=== PATIENT | female | born 1980 | race Caucasian/White ===

== ENCOUNTER 2016-12-31 12:24 | Inpatient (IN) | payer OTHER ==
[2016-12-31 13:03] VITALS: BMI 24.2
--- NOTE | 2016-12-31 16:38 | HP ---
CIWA Score - CIWA Score Nausea/Vomitin-Mild Nausea/No Vomiting Muscle Tremors: 4-Moderate,w/Arms Extend Anxiety: 4-Mod. Anxious/Guarded Agitation: 4-Moderately Restless Paroxysmal Sweats: 1-Minimal Palms Moist Orientation: 0-Oriented Tacttile Disturbances: 0-None Auditory Disturbances: 0-None Visual Disturbances: 0-None Headache: 0-None Present CIWA-Ar Total Score: 14 Admission ROS BHS - HPI Chief Complaint: withdrawal sx Allergies/Adverse Reactions: Allergies Allergy/AdvReac Type Severity Reaction Status Date / Time latex Allergy Hives Verified 12/31/16 13:34 lactose AdvReac Severe diarrhea Verified 12/31/16 13:09 NKDA Allergy Uncoded 12/31/16 13:09 History of Present Illness: 36 years old female with long history of alcohol nicotine dependence has hypertension and depression is admitted to detox Exam Limitations: No Limitations - Ebola screening Have you traveled outside of the country in the last 21 days: No Have you had contact with anyone from an Ebola affected area: No Have you been sick,other than usual withdrawal symptoms: No Do you have a fever: No - Review of Systems Constitutional: Chills, Changes in sleep, Weight Stable EENT: reports: No Symptoms Reported Respiratory: reports: No Symptoms reported Cardiac: reports: No Symptoms Reported GI: reports: Nausea, Poor Fluid Intake, Indigestion, Abdominal cramping : reports: No Symptoms Reported Musculoskeletal: reports: No Symptoms Reported Integumentary: reports: No Symptoms Reported Neuro: reports: Tremors Endocrine: reports: No Symptoms Reported Hematology: reports: No Symptoms Reported Psychiatric: reports: Judgement Intact, Orientated x3, Depressed Other Systems: Reviewed and Negative Patient History - Patient Medical History Hx Anemia: Yes (HX/O) Hx Asthma: No Hx Chronic Obstructive Pulmonary Disease (COPD): No Hx Cancer: No Hx Cardiac Disorders: Yes (atrial fibrilation by history) Hx Congestive Heart Failure: No Hx Hypertension: Yes Hx Hypercholesterolemia: No Hx Pacemaker: No HX Cerebrovascular Accident: No Hx Seizures: No Hx Dementia: No Hx Diabetes: No Hx Gastrointestinal Disorders: Yes (gastric ulcer) Hx Liver Disease: No Hx Genitourinary Disorders: No Hx Sexually Transmitted Disorders: No Hx Renal Disease (ESRD): No Hx Thyroid Disease: Yes (HYPO) Hx Human Immunodeficiency Virus (HIV): No Hx Hepatitis C: No Hx Depression: Yes Hx Suicide Attempt: No Hx Bipolar Disorder: No Hx Schizophrenia: No - Patient Surgical History Past Surgical History: Yes Hx Neurologic Surgery: No Hx Cataract Extraction: No Hx Cardiac Surgery: No Hx Lung Surgery: No Hx Breast Surgery: No Hx Breast Biopsy: No Hx Abdominal Surgery: Yes (gastric bypass in 07/2014) Hx Appendectomy: No Hx Cholecystectomy: No Hx Genitourinary Surgery: No Hx Section: Yes (x2) Hx Orthopedic Surgery: No Anesthesia Reaction: No - PPD History Previous Implant?: Yes Documented Results: Negative w/proof Implanted On Prior R Admission?: Yes Date: 01/11/16 Results: 0 mm PPD to be Administered?: No - Reproductive History Patient is a Female of Child Bearing Age (11 -55 yrs old): Yes Last Menstrual Period: 12/24/16 Patient : No - Smoking Cessation Smoking history: Current every day smoker Have you smoked in the past 12 months: Yes Aproximately how many cigarettes per day: 3 Cigars Per Day: 0 Hx Chewing Tobacco Use: No Initiated information on smoking cessation: Yes 'Breaking Loose' booklet given: 12/31/16 - Substance & Tx. History Hx Alcohol Use: Yes Hx Substance Use: No Substance Use Type: Alcohol Hx Substance Use Treatment: Yes (01/08-01/13/16 [facility]) - Substances Abused Alcohol-beer Route: Oral Frequency: Daily Amount used: 2-3 6 pks. Age of first use: 9 Date of Last Use: 12/31/16 Ativan Route: Oral Frequency: 1-2 times per week Amount used: 1.5 mg. Age of first use: 36 Date of Last Use: 12/30/16 Family Disease History - Family Disease History Family Disease History: Diabetes: Father (HTN, DM), Mother (DM, ASTHMA, METAL ILLNESS), Heart Disease: Father, Mother, Respiratory: Mother, Other: Mother, Brother (MENTAL ILLNESS) Admission Physical Exam BHS - Vital Signs Vital Signs: Vital Signs - 24 hr 12/31/16 13:00 Temperature 97.6 F Pulse Rate 70 Respiratory 18 Rate Blood Pressure 159/103 - Physical General Appearance: Yes: Appropriately Dressed, Mild Distress, Alcohol on Breath , Obese, Tremorous, Irritable, Sweating, Anxious HEENTM: Yes: Hearing grossly Normal, Normal ENT Inspection, Normocephalic, Normal Voice Respiratory: Yes: Chest Non-Tender, Lungs Clear, Normal Breath Sounds, No Respiratory Distress, No Accessory Muscle Use Neck: Yes: Supple, Trachea in good position Breast: Yes: Breasts Symetrical Cardiology: Yes: Regular Rhythm, Regular Rate, S1, S2, Other (cardiac conversion naturally) Abdominal: Yes: Non Tender, Soft Genitourinary: Yes: Within Normal Limits Back: Yes: Normal Inspection Musculoskeletal: Yes: full range of Motion, Gait Steady Extremities: Yes: Normal Inspection, Normal Range of Motion, Non-Tender, Tremors Neurological: Yes: Fully Oriented, Alert, Motor Strength 5/5, Normal Response, Depressed Affect Integumentary: Yes: Normal Color, Warm Lymphatic: Yes: Within Normal Limits - Diagnostic (1) Alcohol dependence with uncomplicated withdrawal Current Visit: Yes Status: Acute (2) Depressive disorder Current Visit: Yes Status: Suspected (3) HTN (hypertension) Current Visit: Yes Status: Chronic Qualifiers: Hypertension type: essential hypertension Qualified Code(s): I10 - Essential (primary) hypertension (4) Nicotine dependence Current Visit: Yes Status: Acute Qualifiers: Nicotine product type: cigarettes Substance use status: in withdrawal Qualified Code(s): F17.213 - Nicotine dependence, cigarettes, with withdrawal Cleared for Admission [facility] - Detox or Rehab [facility] Level of Care: Medically Managed Detox Regimen/Protocol: Librium [facility] Breath Alcohol Content Breath Alcohol Content: 0 Vital Signs - Weight Weight: 185 lb Weight Measurement Method: Standing Scale Urine Pregancy Test - Result Urine Test Results: Negative- NO Line Present Urine Drug Screen - Results Drug Screen Negative: No Urine Drug Screen Results: BZO-Benzodiazepines
[2016-12-31] MEDS ORDERED: NICOTINE POLACRILEX 2 MG GUM BC PRN (16:50)
[2016-12-31] MEDS ORDERED: hydrOXYzine PAMOATE 50 MG CAPSULE (FP) PO PRN (16:50)
[2016-12-31] MEDS ORDERED: guaiFENesin/D-METHORPHAN HB 10 ML UNIT-DOSE CUPS PO PRN (16:50)
[2016-12-31] MEDS ORDERED: MENTHOL/PHENOL 1 EACH UD MM PRN (16:50)
[2016-12-31] MEDS ORDERED: diphenhydrAMINE HCL 50 MG CAPSULE PO PRN (16:50)
[2016-12-31] MEDS ORDERED: chlordiazePOXIDE HCL 25 MG CAPSULE PO PRN (16:50)
[2016-12-31] MEDS ORDERED: MAG HYDROX/AL HYDROX/SIMETH 30 ML UNIT-DOSE CUP PO PRN (16:50)
[2016-12-31] MEDS ORDERED: ACETAMINOPHEN 325 MG TABLET (FP) PO PRN (16:50)
[2016-12-31] MEDS ORDERED: LOPERAMIDE HCL 2 MG CAPSULE PO PRN (16:50)
[2016-12-31] MEDS ORDERED: P-EPHED 60MG/TRIPROLIDI 2.5MG TABLET PO PRN (16:50)
[2016-12-31] MEDS ORDERED: MAGNESIUM HYDROX 2400MG/30ML ORAL SUSPENSION 30 ML CUP PO PRN (16:50)
[2016-12-31] MEDS ORDERED: MAGNESIUM CITRATE 300 ML BOTTLE PO PRN (16:50)
[2016-12-31] MEDS ORDERED: THIAMINE HCL 100 MG TABLET (FP) PO SCH (22:00)
[2016-12-31] MEDS: RANITIDINE HCL 150 MG TABLET (FP) PO SCH (22:06)
[2016-12-31] MEDS: chlordiazePOXIDE HCL 25 MG CAPSULE PO SCH (22:06)
[2016-12-31 23:19] LABS: URINE APPEARANCE SLCLOUDY; URINE BILIRUBIN NEGATIVE (NEGATIVE); URINE COLOR STRAW; URINE GLUCOSE (UA) NEGATIVE (NEGATIVE); URINE KETONE NEGATIVE (NEGATIVE); URINE NITRITE NEGATIVE (NEGATIVE); URINE PROTEIN NEGATIVE (NEGATIVE); URINE UROBILINOGEN NEGATIVE E.U./dl (0.2-1.0)
[2016-12-31 23:22] LABS: URINE BLOOD 2+ (NEGATIVE); URINE LEUK ESTERASE 2+ (NEGATIVE)
[2016-12-31 23:23] LABS: URINE BACTERIA RARE /hpf (NONE SEEN); URINE MUCUS RARE; URINE RBC 5 /hpf (0-3); URINE WBC 12 /hpf (3-5)
[2017-01-01] MEDS: chlordiazePOXIDE HCL 25 MG CAPSULE PO SCH ×3 (05:36→17:28)
[2017-01-01 09:58] LABS: MCH 26.4 pg (25.7-33.7); MEAN CELL VOLUME 85.1 fl (80-96); MEAN PLT VOLUME 8.6 fl (7.5-11.1); PLATELET COUNT 259 K/MM3 (134-434); RDW 16.7 % (11.6-15.6); WHITE BLOOD COUNT 4.2 K/mm3 (4.0-10.0)
[2017-01-01] MEDS ORDERED: PRENATAL VITAMINS W/ FOLIC ACID TABLET (FP) PO SCH (10:00)
[2017-01-01] MEDS ORDERED: LISINOPRIL 10 MG TABLET (FP) PO SCH (10:00)
[2017-01-01] MEDS ORDERED: NICOTINE 14 MG/24 HOURS TOPICAL PATCH TD SCH (10:00)
[2017-01-01 10:08] LABS: ALBUMIN 3.6 g/dl (3.4-5.0); ANION GAP 5 (8-16); CALCIUM 9.2 mg/dL (8.5-10.1); CO2 29 mmol/L (21-32); GLUCOSE,RANDOM 62 mg/dL (74-106); SGOT/AST 21 U/L (15-37); SGPT/ALT 24 U/L (12-78)
[2017-01-01 10:10] LABS: ALK PHOS 95 U/L (45-117); BILIRUBIN,TOTAL 0.5 mg/dL (0.2-1.0); CREATININE 0.8 mg/dL (0.55-1.02); TOT PROT 7.4 g/dl (6.4-8.2)
[2017-01-01] MEDS: RANITIDINE HCL 150 MG TABLET (FP) PO SCH (10:43)
--- NOTE | 2017-01-01 14:01 | CONSULT ---
[facility] Psychiatric Consult - Data Date of interview: 01/01/17 Admission source: [facility] Identifying data: This is the second admission to [facility] for this 36 year female seeking detox treatment on for alcohol dependence.Patient is ,a mother of two(3 year old and 3 month),domiciled, unemployed and supported by her spouse. Substance Abuse History: Patient reports drinking beer daily 2-3 pks daily, smoks cig. 2 a day, ativan 2-3 times a week 1.5 mg Medical History: Patient reports gastric ulcers, gastric bypass surgery in 2014 , HTN. Psychiatric History: Patient reports has been in treatment for depression since last year, attends [facility] and was on Lexapro 10 mg po daily and Trazodone 150 mg po hs, reports due to her drinking she was not taking medications, now thinks she needs to restart. Physical/Sexual Abuse/Trauma History: Denies Mental Status Exam - Mental Status Exam Alert and Oriented to: Time, Place, Person Cognitive Function: Grossly Intact Patient Appearance: Well Groomed Mood: Sad, Anxious Affect: Appropriate, Inappropriate Patient Behavior: Appropriate, Cooperative Speech Pattern: Clear, Appropriate Voice Loudness: Normal Thought Process: Intact Thought Disorder: Not Present Hallucinations: None, Denies Suicidal Ideation: None, Denies Homicidal Ideation: None, Denies Insight/Judgement: Fair Sleep: Fair Appetite: Fair Muscle strength/Tone: Normal Gait/Station: Normal Psychiatric Findings - Problem List ([place] 1, 2,3) (1) Alcohol dependence with uncomplicated withdrawal Current Visit: Yes Status: Acute (2) Nicotine dependence Current Visit: Yes Status: Acute Qualifiers: Nicotine product type: cigarettes Substance use status: in withdrawal Qualified Code(s): F17.213 - Nicotine dependence, cigarettes, with withdrawal (3) HTN (hypertension) Current Visit: Yes Status: Chronic Qualifiers: Hypertension type: essential hypertension Qualified Code(s): I10 - Essential (primary) hypertension (4) MDD (major depressive disorder), recurrent episode, severe Current Visit: Yes Status: Acute - Initial Treatment Plan Initial Treatment Plan: will restart Trazodone 100 mg po hs and Lexapro 10 mg po daily.
--- NOTE | 2017-01-01 16:00 | PN ---
[facility] CIWA - CIWA Score Nausea/Vomitin-Mild Nausea/No Vomiting Muscle Tremors: 3 Anxiety: 4-Mod. Anxious/Guarded Agitation: 4-Moderately Restless Paroxysmal Sweats: 3 Orientation: 0-Oriented Tacttile Disturbances: 0-None Auditory Disturbances: 0-None Visual Disturbances: 0-None Headache: 0-None Present CIWA-Ar Total Score: 15 BHS Progress Note (SOAP) Subjective: Anxiety,tremors,sweating,interrupted sleep,restless Objective: 01/01/17 16:00 Vital Signs - 8 hr 01/01/17 01/01/17 10:00 14:00 Temperature 98.4 F 98.2 F Pulse Rate 86 83 Respiratory 16 18 Rate Blood Pressure 151/89 145/91 Laboratory Last Values WBC 4.2 K/mm3 (4.0-10.0) 01/01/17 06:00 RBC 4.22 M/mm3 (3.60-5.2) 01/01/17 06:00 Hgb 11.1 GM/dL (10.7-15.3) D 01/01/17 06:00 Hct 35.9 % (32.4-45.2) 01/01/17 06:00 MCV 85.1 fl (80-96) 01/01/17 06:00 MCHC 31.0 g/dl (32.0-36.0) L 01/01/17 06:00 RDW 16.7 % (11.6-15.6) H D 01/01/17 06:00 Plt Count 259 K/MM3 (134-434) 01/01/17 06:00 MPV 8.6 fl (7.5-11.1) 01/01/17 06:00 Sodium 141 mmol/L (136-145) 01/01/17 06:00 Potassium 4.1 mmol/L (3.5-5.1) 01/01/17 06:00 Chloride 107 mmol/L (98-107) 01/01/17 06:00 Carbon Dioxide 29 mmol/L (21-32) 01/01/17 06:00 Anion Gap 5 (8-16) L 01/01/17 06:00 BUN 14 mg/dL (7-18) D 01/01/17 06:00 Creatinine 0.8 mg/dL (0.55-1.02) D 01/01/17 06:00 Creat Clearance w eGFR > 60 (>60) 01/01/17 06:00 Random Glucose 62 mg/dL (74-106) L D 01/01/17 06:00 Calcium 9.2 mg/dL (8.5-10.1) 01/01/17 06:00 Total Bilirubin 0.5 mg/dL (0.2-1.0) 01/01/17 06:00 AST 21 U/L (15-37) D 01/01/17 06:00 ALT 24 U/L (12-78) 01/01/17 06:00 Alkaline Phosphatase 95 U/L (45-117) D 01/01/17 06:00 Total Protein 7.4 g/dl (6.4-8.2) 01/01/17 06:00 Albumin 3.6 g/dl (3.4-5.0) 01/01/17 06:00 Urine Color Straw 12/31/16 22:01 Urine Appearance Slcloudy 12/31/16 22:01 Urine pH 5.0 (5.0-8.0) 12/31/16 22:01 Ur Specific [place] <= 1.005 (1.005-1.025) 12/31/16 22:01 Urine Protein Negative (NEGATIVE) 12/31/16 22:01 Urine Glucose (UA) Negative (NEGATIVE) 12/31/16 22:01 Urine Ketones Negative (NEGATIVE) 12/31/16 22:01 Urine Blood 2+ (NEGATIVE) H 12/31/16 22:01 Urine Nitrite Negative (NEGATIVE) 12/31/16 22:01 Urine Bilirubin Negative (NEGATIVE) 12/31/16 22:01 Urine Urobilinogen Negative E.U./dl (0.2-1.0) 12/31/16 22:01 Ur Leukocyte Esterase 2+ (NEGATIVE) H 12/31/16 22:01 Urine RBC 5 /hpf (0-3) 12/31/16 22:01 Urine WBC 12 /hpf (3-5) 12/31/16 22:01 Ur Epithelial Cells Few /hpf (FEW) 12/31/16 22:01 Urine Bacteria Rare /hpf (NONE SEEN) 12/31/16 22:01 Urine Mucus Rare 12/31/16 22:01 RPR Titer Nonreactive (NONREACTIVE) 01/01/17 06:00 labs noted Assessment: 01/01/17 16:00 Withdrawal sx. Plan: Continue detox
[2017-01-01 17:49] VITALS: BP 140/88; PULSE 82; TEMP 97.1
--- NOTE | 2017-01-01 20:17 | DS ---
[facility] Detox Discharge Summary Admission Date: 12/31/16 Discharge Date: 01/01/17 - History Present History: Alcohol Dependence Additional Comments: observed patient ambulating on [address], alert oriented x 3, speech clearly coherent, worry about young son, must leave, recommend utilize community resources, patient insists to leave, reported having anti hypertensants at home , agrees to follow up with accounts payable technician patient denies pain, denies discomfort, denies suicidal denies homocidal no self destructive behavior, - Physical Exam Results Vital Signs: Vital Signs Temperature 97.1 F L 01/01/17 17:49 Pulse Rate 82 01/01/17 17:49 Respiratory Rate 20 01/01/17 17:49 Blood Pressure 140/88 01/01/17 17:49 O2 Sat by Pulse Oximetry (%) Pertinent Admission Physical Exam Findings: withdrawal sx Laboratory Last Values WBC 4.2 K/mm3 (4.0-10.0) 01/01/17 06:00 RBC 4.22 M/mm3 (3.60-5.2) 01/01/17 06:00 Hgb 11.1 GM/dL (10.7-15.3) D 01/01/17 06:00 Hct 35.9 % (32.4-45.2) 01/01/17 06:00 MCV 85.1 fl (80-96) 01/01/17 06:00 MCHC 31.0 g/dl (32.0-36.0) L 01/01/17 06:00 RDW 16.7 % (11.6-15.6) H D 01/01/17 06:00 Plt Count 259 K/MM3 (134-434) 01/01/17 06:00 MPV 8.6 fl (7.5-11.1) 01/01/17 06:00 Sodium 141 mmol/L (136-145) 01/01/17 06:00 Potassium 4.1 mmol/L (3.5-5.1) 01/01/17 06:00 Chloride 107 mmol/L (98-107) 01/01/17 06:00 Carbon Dioxide 29 mmol/L (21-32) 01/01/17 06:00 Anion Gap 5 (8-16) L 01/01/17 06:00 BUN 14 mg/dL (7-18) D 01/01/17 06:00 Creatinine 0.8 mg/dL (0.55-1.02) D 01/01/17 06:00 Creat Clearance w eGFR > 60 (>60) 01/01/17 06:00 Random Glucose 62 mg/dL (74-106) L D 01/01/17 06:00 Calcium 9.2 mg/dL (8.5-10.1) 01/01/17 06:00 Total Bilirubin 0.5 mg/dL (0.2-1.0) 01/01/17 06:00 AST 21 U/L (15-37) D 01/01/17 06:00 ALT 24 U/L (12-78) 01/01/17 06:00 Alkaline Phosphatase 95 U/L (45-117) D 01/01/17 06:00 Total Protein 7.4 g/dl (6.4-8.2) 01/01/17 06:00 Albumin 3.6 g/dl (3.4-5.0) 01/01/17 06:00 Urine Color Straw 12/31/16 22:01 Urine Appearance Slcloudy 12/31/16 22:01 Urine pH 5.0 (5.0-8.0) 12/31/16 22:01 Ur Specific [place] <= 1.005 (1.005-1.025) 12/31/16 22:01 Urine Protein Negative (NEGATIVE) 12/31/16 22:01 Urine Glucose (UA) Negative (NEGATIVE) 12/31/16 22:01 Urine Ketones Negative (NEGATIVE) 12/31/16 22:01 Urine Blood 2+ (NEGATIVE) H 12/31/16 22:01 Urine Nitrite Negative (NEGATIVE) 12/31/16 22:01 Urine Bilirubin Negative (NEGATIVE) 12/31/16 22:01 Urine Urobilinogen Negative E.U./dl (0.2-1.0) 12/31/16 22:01 Ur Leukocyte Esterase 2+ (NEGATIVE) H 12/31/16 22:01 Urine RBC 5 /hpf (0-3) 12/31/16 22:01 Urine WBC 12 /hpf (3-5) 12/31/16 22:01 Ur Epithelial Cells Few /hpf (FEW) 12/31/16 22:01 Urine Bacteria Rare /hpf (NONE SEEN) 12/31/16 22:01 Urine Mucus Rare 12/31/16 22:01 RPR Titer Nonreactive (NONREACTIVE) 01/01/17 06:00 lab noted - Treatment Hospital Course: Detox Protocol Followed, Responded well - Medication Discharge Medications: Ambulatory Orders Trazodone HCl [Desyrel -] 150 mg PO HS 01/09/16 Diltiazem HCl [Diltiazem 24Hr Cd] 240 mg PO DAILY 12/31/16 Lisinopril [Prinivil] 10 - 20 mg PO DAILY 12/31/16 Escitalopram Oxalate [Lexapro -] 10 mg PO DAILY #30 tablet 01/01/17 Trazodone HCl [Desyrel -] 100 mg PO HS #30 tablet 01/01/17 - Diagnosis (1) Alcohol dependence with uncomplicated withdrawal Status: Acute (2) Depressive disorder Status: Suspected (3) HTN (hypertension) Status: Chronic Qualifiers: Hypertension type: essential hypertension Qualified Code(s): I10 - Essential (primary) hypertension (4) Nicotine dependence Status: Acute Qualifiers: Nicotine product type: cigarettes Substance use status: in withdrawal Qualified Code(s): F17.213 - Nicotine dependence, cigarettes, with withdrawal - AMA Did Patient Leave Against Medical Advice: Yes
[2017-01-01] MEDS ORDERED: traZODone HCL 100 MG TABLET (FP) PO SCH (22:00)
[2017-01-01] MEDS ORDERED: chlordiazePOXIDE HCL 25 MG CAPSULE PO SCH (23:00)
[2017-01-02] MEDS ORDERED: ESCITALOPRAM OXALATE 10 MG TABLET (FP) PO SCH (10:00)
[2017-01-02] MEDS ORDERED: chlordiazePOXIDE 5 MG CAPSULE PO SCH (23:00)
--- NOTE | 2017-01-03 22:20 | EKG ---
Test Reason : Blood Pressure : / mmHG Vent. Rate : 091 BPM Atrial Rate : 091 BPM P-R Int : 186 ms QRS Dur : 084 ms QT Int : 364 ms P-R-T Axes : 048 057 019 degrees QTc Int : 447 ms POOR DATA QUALITY, INTERPRETATION MAY BE ADVERSELY AFFECTED NORMAL SINUS RHYTHM NORMAL ECG NO PREVIOUS ECGS AVAILABLE Confirmed by LETA DARLING MD ([id number]) on 01/03/2017 10:20:02 PM Referred By: Confirmed By:LETA DARLING MD
[2017-01-03] MEDS ORDERED: chlordiazePOXIDE HCL 10 MG CAPSULE PO SCH (23:00)
== END 2017-01-01 18:25 | disposition left against medical advice (07) | DRG 770 ==
LOC: YASAS 12:24 → Y6N 13:58
PROVIDERS: ADMIT Internal Medicine; ATTEND Internal Medicine
PROC: HZ2ZZZZ Detoxification Services for Substance Abuse Treatment (ICD-10-PCS; principal; 2017-01-01)
DX: F10.230 Alcohol dependence with withdrawal, uncomplicated (principal); F17.213 Nicotine dependence, cigarettes, with withdrawal; F33.2 Major depressive disorder, recurrent severe without psychotic features; I10 Essential (primary) hypertension; E03.9 Hypothyroidism, unspecified; I48.91 Unspecified atrial fibrillation
CPT/HCPCS: 36415; 80053; 81003; 81015; 85027; 86593; 93005; 93010

== ENCOUNTER 2017-11-16 13:51 | Inpatient (IN) | payer OTHER ==
[2017-11-16 15:12] VITALS: BMI 29.8
--- NOTE | 2017-11-16 15:26 | HP ---
CIWA Score - CIWA Score Nausea/Vomitin Muscle Tremors: 3 Anxiety: 3 Agitation: 2 Paroxysmal Sweats: 1-Minimal Palms Moist Orientation: 0-Oriented Tacttile Disturbances: 1-Very Mild Itch/Numbness Auditory Disturbances: 1-Very Mild Visual Disturbances: 0-None Headache: 2-Mild CIWA-Ar Total Score: 16 Admission ROS BHS - HPI Chief Complaint: i need help to stop drinking alcohol Allergies/Adverse Reactions: Allergies Allergy/AdvReac Type Severity Reaction Status Date / Time latex Allergy Hives Verified 11/16/17 15:06 lactose AdvReac Severe diarrhea Verified 11/16/17 15:06 NKDA Allergy Uncoded 11/16/17 15:06 History of Present Illness: this 37 years old female with alcohol dependence,seeking detox,withdrawal symptom,last detox [facility] 12/31/16 to 01/01/17 not completed history of hypertension history of atrial fibrillation nicotine dependence had termination of on 10/29/17,see attached note had anxiety,depression,insomnia Exam Limitations: No Limitations - Ebola screening Have you traveled outside of the country in the last 21 days: No Have you had contact with anyone from an Ebola affected area: No Have you been sick,other than usual withdrawal symptoms: No Do you have a fever: No - Review of Systems Constitutional: Loss of Appetite, Malaise, Night Sweats, Changes in sleep EENT: reports: Nose Congestion Respiratory: reports: No Symptoms reported Cardiac: reports: Palpitations GI: reports: Nausea, Vomiting (s/p gastric by pass in 2014), Abdominal cramping : reports: No Symptoms Reported Musculoskeletal: reports: Back Pain, Muscle Pain Integumentary: reports: Dryness Neuro: reports: Headache, Tremors Endocrine: reports: No Symptoms Reported Hematology: reports: No Symptoms Reported Psychiatric: reports: No Sypmtoms Reported, Judgement Intact, Mood/Affect Appropiate, Orientated x3 (insomnia), Anxious, Depressed Patient History - Patient Medical History Hx Anemia: Yes (HX/O) Hx Asthma: No Hx Chronic Obstructive Pulmonary Disease (COPD): No Hx Cancer: No Hx Cardiac Disorders: Yes (atrial fibrilation by history) Hx Congestive Heart Failure: No Hx Hypertension: Yes (non compliance) Hx Hypercholesterolemia: No Hx Pacemaker: No HX Cerebrovascular Accident: No Hx Seizures: No Hx Dementia: No Hx Diabetes: No Hx Gastrointestinal Disorders: Yes (gastric ulcer s/p cuaterization 2017) Hx Liver Disease: No Hx Genitourinary Disorders: No Hx Sexually Transmitted Disorders: No Hx Renal Disease (ESRD): No Hx Thyroid Disease: Yes (HYPO no med) Hx Human Immunodeficiency Virus (HIV): No (last 09/26 negative) Hx Hepatitis C: No Hx Depression: Yes (no med) Hx Suicide Attempt: No Hx Bipolar Disorder: No Hx Schizophrenia: No Other Medical History: no suicidal,no homicidal - Patient Surgical History Past Surgical History: Yes Hx Neurologic Surgery: No Hx Cataract Extraction: No Hx Cardiac Surgery: No Hx Lung Surgery: No Hx Breast Surgery: No Hx Breast Biopsy: No Hx Abdominal Surgery: Yes (gastric bypass in 07/2014) Hx Appendectomy: No Hx Cholecystectomy: No Hx Genitourinary Surgery: No Hx Section: Yes (x2) Hx Orthopedic Surgery: No Anesthesia Reaction: No - PPD History Previous Implant?: Yes Documented Results: Negative w/o proof Date: 01/11/16 Results: 0 mm PPD to be Administered?: Yes - Reproductive History Patient is a Female of Child Bearing Age (11 -55 yrs old): Yes Last Menstrual Period: 04/25/17 Patient : No - Smoking Cessation Smoking history: Current every day smoker Have you smoked in the past 12 months: Yes Aproximately how many cigarettes per day: 3 Cigars Per Day: 0 Hx Chewing Tobacco Use: No Initiated information on smoking cessation: Yes 'Breaking Loose' booklet given: 11/16/17 - Substance & Tx. History Hx Alcohol Use: Yes Hx Substance Use: No Substance Use Type: Alcohol Hx Substance Use Treatment: Yes ([facility] ) - Substances Abused Alcohol Route: Oral Frequency: Daily Amount used: 2 6pks beer Age of first use: 20 Date of Last Use: 11/16/17 Family Disease History - Family Disease History Family Disease History: Diabetes: Father (HTN, DM), Mother (DM, ASTHMA, METAL ILLNESS), Heart Disease: Father, Mother, Respiratory: Mother, Other: Mother, Brother (MENTAL ILLNESS) Admission Physical Exam BHS - Vital Signs Vital Signs: Vital Signs - 24 hr 11/16/17 15:06 Temperature 97 F L Pulse Rate 117 H Respiratory 20 Rate Blood Pressure 170/120 - Physical General Appearance: Yes: Moderate Distress, Tremorous, Irritable, Anxious HEENTM: Yes: Normocephalic, QIANA, Pharynx Normal Respiratory: Yes: Lungs Clear, Normal Breath Sounds, No Respiratory Distress Neck: Yes: Within Normal Limits, Supple, Trachea in good position Breast: Yes: Breast Exam Deferred Cardiology: Yes: Tachycardia Abdominal: Yes: Within Normal Limits, Normal Bowel Sounds, Soft Genitourinary: Yes: Within Normal Limits Back: Yes: Muscle Spasm Musculoskeletal: Yes: Back pain, Muscle Pain Extremities: Yes: Normal Inspection, Normal Range of Motion Neurological: Yes: workplace rehabilitation officer II-XII NML intact, Fully Oriented, Alert, Motor Strength 5/5 Integumentary: Yes: Dry Lymphatic: Yes: Within Normal Limits - Diagnostic (1) Alcohol dependence with uncomplicated withdrawal Current Visit: No Status: Acute (2) Head injury Current Visit: Yes Status: Acute (3) Nicotine dependence Current Visit: No Status: Acute Qualifiers: Nicotine product type: cigarettes Substance use status: in withdrawal Qualified Code(s): F17.213 - Nicotine dependence, cigarettes, with withdrawal (4) HTN (hypertension) Current Visit: Yes Status: Chronic Qualifiers: Hypertension type: essential hypertension Qualified Code(s): I10 - Essential (primary) hypertension (5) Depressive disorder Current Visit: No Status: Suspected (6) History of termination of Current Visit: Yes Status: Chronic Cleared for Admission [facility] - Detox or Rehab [facility] Level of Care: Medically Managed (patient sent to er at [facility] evaluation of head injury 2 days ago,has ct of head done negative ,return to [facility] seen by [facility] carlos alberto,admit for detox librium regimen) Detox Regimen/Protocol: Librium Screened but not Admitted - Documentation of Visit Screened but not Admitted: Yes Additional Information/Explanation: this 37 years old female with alocohol dependence seeking detox,. has termination of on 10/29/17. history of htn non compliance with medication. head injury 2 days ago. bp 170/120,p117 ,[id number],dee 0.306. patient to go to [facility] er for evaluation,case endorsed to Isamar Carver md,. to be transported by [facility] Breath Alcohol Content Breath Alcohol Content: 0.306 Urine Pregancy Test - Result Urine Test Results: Positive - Line Present Urine Drug Screen - Results Drug Screen Negative: Yes
--- NOTE | 2017-11-16 23:49 | HP ---
CIWA Score - CIWA Score Nausea/Vomitin Muscle Tremors: 3 Anxiety: 3 Agitation: 2 Paroxysmal Sweats: 1-Minimal Palms Moist Orientation: 0-Oriented Tacttile Disturbances: 1-Very Mild Itch/Numbness Auditory Disturbances: 1-Very Mild Visual Disturbances: 0-None Headache: 2-Mild CIWA-Ar Total Score: 16 Admission ROS S - HPI Chief Complaint: Alcohol withdrawal symptoms Allergies/Adverse Reactions: Allergies Allergy/AdvReac Type Severity Reaction Status Date / Time latex Allergy Hives Verified 11/16/17 15:06 lactose AdvReac Severe diarrhea Verified 11/16/17 15:06 NKDA Allergy Uncoded 11/16/17 15:06 History of Present Illness: 37 years old female with a long history of alcohol dependence is seeking admission to detox. Patient has been in previous detox and reports 2 years of sobriety. She has medical history of anemia, hypothyroidism, A-FIB, GERD, depression, anxiety and HTN. Denies suicide attempt/ideation at this time. Patient was sent to ER in the afternoon on 11/16/2017 with complaint of elevated B /P and treated. B/P now is B/P 159/102 and patient is asymptomatic. She status post termination on November 28, 2017. Exam Limitations: No Limitations - Ebola screening Have you traveled outside of the country in the last 21 days: No Have you had contact with anyone from an Ebola affected area: No Have you been sick,other than usual withdrawal symptoms: No Do you have a fever: No - Review of Systems Constitutional: Chills, Loss of Appetite, Malaise, Night Sweats EENT: reports: No Symptoms Reported Respiratory: reports: No Symptoms reported Cardiac: reports: No Symptoms Reported GI: reports: Diarrhea, Poor Appetite, Poor Fluid Intake, Abdominal cramping : reports: No Symptoms Reported Musculoskeletal: reports: Back Pain, Muscle Pain, Neck Pain Integumentary: reports: Dryness, Flushing Neuro: reports: No Symptoms reported, Tingling, Tremors Endocrine: reports: No Symptoms Reported Hematology: reports: No Symptoms Reported Psychiatric: reports: Agitated, Anxious, Depressed Other Systems: Reviewed and Negative Patient History - Patient Medical History Hx Anemia: Yes (Not on medication) Hx Asthma: No Hx Chronic Obstructive Pulmonary Disease (COPD): No Hx Cancer: No Hx Cardiac Disorders: Yes (atrial fibrilation by history) Hx Congestive Heart Failure: No Hx Hypertension: Yes (Lisinopril nd metoprolol) Hx Hypercholesterolemia: No Hx Pacemaker: No HX Cerebrovascular Accident: No Hx Seizures: No Hx Dementia: No Hx Diabetes: No Hx Gastrointestinal Disorders: Yes (gastric ulcer s/p cuaterization 2016- Omeprazole) Hx Liver Disease: No Hx Genitourinary Disorders: No Hx Sexually Transmitted Disorders: No Hx Renal Disease (ESRD): No Hx Thyroid Disease: Yes (HYPOTHYROID- not on medication) Hx Human Immunodeficiency Virus (HIV): No (last 09/26 negative) Hx Hepatitis C: No Hx Depression: Yes (no med) Hx Suicide Attempt: No (Denies suicide attempt and suicidal idetion at tis time) Hx Bipolar Disorder: No Hx Schizophrenia: No Other Medical History: no suicidal,no homicidal - Patient Surgical History Past Surgical History: Yes Hx Neurologic Surgery: No Hx Cataract Extraction: No Hx Cardiac Surgery: No Hx Lung Surgery: No Hx Breast Surgery: No Hx Breast Biopsy: No Hx Abdominal Surgery: Yes (gastric bypass in 07/2014) Hx Appendectomy: No Hx Cholecystectomy: No Hx Genitourinary Surgery: No Hx Section: Yes (x2) Hx Orthopedic Surgery: No Anesthesia Reaction: No - PPD History Previous Implant?: Yes Documented Results: Negative w/o proof Implanted On Prior [facility] Admission?: Yes Date: 01/11/16 Results: 0 mm PPD to be Administered?: Yes - Reproductive History Patient is a Female of Child Bearing Age (11 -55 yrs old): Yes Last Menstrual Period: 04/25/17 LMP comment: termination 2 weks ago, December 01 Patient : No - Smoking Cessation Smoking history: Current every day smoker Have you smoked in the past 12 months: Yes Aproximately how many cigarettes per day: 5 Cigars Per Day: 0 Hx Chewing Tobacco Use: No Initiated information on smoking cessation: Yes 'Breaking Loose' booklet given: 11/16/17 - Substance & Tx. History Hx Alcohol Use: Yes Hx Substance Use: No Hx Substance Use Treatment: Yes ([facility]) - Substances Abused Alcohol Route: Oral Frequency: Daily Amount used: 2 6pks beer Age of first use: 20 Date of Last Use: 11/16/17 Family Disease History - Family Disease History Family Disease History: Diabetes: Father (HTN, DM), Mother (DM, ASTHMA, METAL ILLNESS), Heart Disease: Father, Mother, Respiratory: Mother, Other: Mother, Brother (MENTAL ILLNESS) Admission Physical Exam [facility] - Vital Signs Vital Signs: Vital Signs - 24 hr 11/16/17 15:06 Temperature 97 F L Pulse Rate 117 H Respiratory 20 Rate Blood Pressure 170/120 - Physical General Appearance: Yes: Moderate Distress, Tremorous, Irritable, Sweating, Anxious HEENTM: Yes: EOMI, Normal ENT Inspection, Normal Voice, QIANA Respiratory: Yes: Lungs Clear, Normal Breath Sounds, No Respiratory Distress Neck: Yes: Supple Breast: Yes: Breast Exam Deferred Cardiology: Yes: Regular Rhythm, Regular Rate Abdominal: Yes: Normal Bowel Sounds, Soft Genitourinary: Yes: Within Normal Limits Back: Yes: Normal Inspection Musculoskeletal: Yes: Within Normal Limits Extremities: Yes: Normal Inspection Neurological: Yes: Alert, Normal Mood/Affect Integumentary: Yes: Dry Lymphatic: Yes: Within Normal Limits Cleared for Admission [facility] - Detox or Rehab [facility] Level of Care: Medically Managed Detox Regimen/Protocol: Librium [facility] Breath Alcohol Content Breath Alcohol Content: 0.306 Urine Pregancy Test - Result Urine Test Results: Positive - Line Present Urine Drug Screen - Results Drug Screen Negative: Yes
[2017-11-17] MEDS ORDERED: chlordiazePOXIDE HCL 25 MG CAPSULE PO PRN (00:08)
[2017-11-17] MEDS ORDERED: MENTHOL/PHENOL 1 EACH UD MM PRN (00:08)
[2017-11-17] MEDS ORDERED: MAGNESIUM HYDROX 2400MG/30ML ORAL SUSPENSION 30 ML CUP PO PRN (00:08)
[2017-11-17] MEDS ORDERED: ACETAMINOPHEN 325 MG TABLET (FP) PO PRN (00:08)
[2017-11-17] MEDS ORDERED: chlordiazePOXIDE HCL 25 MG CAPSULE PO ONE (00:08)
[2017-11-17] MEDS ORDERED: MAG HYDROX/AL HYDROX/SIMETH 30 ML UNIT-DOSE CUP PO PRN (00:08)
[2017-11-17] MEDS ORDERED: P-EPHED 60MG/TRIPROLIDI 2.5MG TABLET PO PRN (00:08)
[2017-11-17] MEDS ORDERED: MAGNESIUM CITRATE 300 ML BOTTLE PO PRN (00:08)
[2017-11-17] MEDS ORDERED: LOPERAMIDE HCL 2 MG CAPSULE PO PRN (00:08)
[2017-11-17] MEDS ORDERED: NICOTINE POLACRILEX 2 MG GUM BC PRN (00:08)
[2017-11-17] MEDS ORDERED: guaiFENesin/D-METHORPHAN HB 10 ML UNIT-DOSE CUPS PO PRN (00:08)
[2017-11-17] MEDS ORDERED: IBUPROFEN 400 MG TABLET (FP) PO PRN (00:08)
[2017-11-17] MEDS: chlordiazePOXIDE HCL 25 MG CAPSULE PO SCH ×4 (05:56→22:19)
[2017-11-17] MEDS: FERROUS SO4 325 MG TABLET (FP) PO SCH ×3 (07:59→17:37)
--- NOTE | 2017-11-17 08:45 | CONSULT ---
[facility] Psychiatric Consult - Data Date of interview: 11/17/17 Admission source: [facility] Identifying data: This is 37 years old female, single mothe rof two, living with family, unemployed with alcohol dependence,seeking detox,reporting withdrawal symptoms,. Denies psychiatric hospitalization history Substance Abuse History: - Smoking Cessation. Smoking history: Current every day smoker. Have you smoked in the past 12 months: Yes. Aproximately how many cigarettes per day: 3. Cigars Per Day: 0. Hx Chewing Tobacco Use: No. Initiated information on smoking cessation: Yes. 'Breaking Loose' booklet given : 11/16/17. - Substance & Tx. History. Hx Alcohol Use: Yes. Hx Substance Use : No. Substance Use Type: Alcohol. Hx Substance Use Treatment: Yes ([facility] ). - Substances Abused. Alcohol. Route: Oral. Frequency: Daily. Amount used : 2 6pks beer. Age of first use: 20. Date of Last Use: 11/16/17 Medical History: Head trauma history, HTN, A.Fib, Anemia, GERD, Hypothyroidism Psychiatric History: Patient reports histopry of depression, reports taking prior to admission: Saphris 5mg poqd, denies suicidal, homicidal history Physical/Sexual Abuse/Trauma History: Denies Additional Comment: Saphris 5mg poqd Mental Status Exam - Mental Status Exam Alert and Oriented to: Person Cognitive Function: Fair Patient Appearance: Unkempt Mood: Sad Patient Behavior: Cooperative Speech Pattern: Appropriate Voice Loudness: Mildly Soft/Quiet Thought Process: Circumstantial Thought Disorder: Being Controlled Hallucinations: Denies Suicidal Ideation: Denies Homicidal Ideation: Denies Insight/Judgement: Fair Sleep: Difficulty falling asleep Appetite: Weight gain Muscle strength/Tone: Normal Gait/Station: Normal Additional Comments: Saphris 5mg poqd Psychiatric Findings - Problem List ([place] 1, 2,3) (1) Drug-induced mood disorder Current Visit: Yes Status: Acute (2) Alcohol abuse Current Visit: No Status: Acute (3) Alcohol dependence with uncomplicated withdrawal Current Visit: No Status: Acute (4) Alcohol-induced mood disorder Current Visit: No Status: Acute (5) MDD (major depressive disorder), recurrent episode, severe Current Visit: No Status: Acute (6) Nicotine dependence Current Visit: No Status: Acute Qualifiers: Nicotine product type: cigarettes Substance use status: in withdrawal Qualified Code(s): F17.213 - Nicotine dependence, cigarettes, with withdrawal - Initial Treatment Plan Initial Treatment Plan: Saphris 5mg poqd
[2017-11-17 10:23] LABS: HEMATOCRIT 32.4 % (32.4-45.2); HEMOGLOBIN 10.9 GM/dL (10.7-15.3); MCH 29.2 pg (25.7-33.7); MCHC 33.5 g/dl (32.0-36.0); MEAN CELL VOLUME 87.3 fl (80-96); MEAN PLT VOLUME 7.8 fl (7.5-11.1); PLATELET COUNT 233 K/MM3 (134-434); RBC 3.72 M/mm3 (3.60-5.2); RDW 15.6 % (11.6-15.6); WHITE BLOOD COUNT 5.6 K/mm3 (4.0-10.0)
[2017-11-17] MEDS: LISINOPRIL 10 MG TABLET (FP) PO SCH (10:34)
[2017-11-17] MEDS: NICOTINE 14 MG/24 HOURS TOPICAL PATCH TD SCH (10:34)
[2017-11-17] MEDS: PRENATAL VITAMINS W/ FOLIC ACID TABLET (FP) PO SCH (10:34)
--- NOTE | 2017-11-17 10:47 | PN ---
S CIWA - CIWA Score Nausea/Vomitin-Mild Nausea/No Vomiting Muscle Tremors: 4-Moderate,w/Arms Extend Anxiety: 4-Mod. Anxious/Guarded Agitation: 3 Paroxysmal Sweats: 1-Minimal Palms Moist Orientation: 0-Oriented Tacttile Disturbances: 1-Very Mild Itch/Numbness Auditory Disturbances: 0-None Visual Disturbances: 0-None Headache: 0-None Present CIWA-Ar Total Score: 14 BHS Progress Note (SOAP) Subjective: sweat tremor anxiety restlessness gi distress gassy Objective: 11/17/17 10:46 Vital Signs Temperature 97.9 F 11/17/17 09:18 Pulse Rate 72 11/17/17 09:18 Respiratory Rate 18 11/17/17 09:18 Blood Pressure 120/82 11/17/17 09:18 O2 Sat by Pulse Oximetry (%) Laboratory Last Values WBC 5.6 K/mm3 (4.0-10.0) D 11/17/17 07:30 RBC 3.72 M/mm3 (3.60-5.2) 11/17/17 07:30 Hgb 10.9 GM/dL (10.7-15.3) 11/17/17 07:30 Hct 32.4 % (32.4-45.2) 11/17/17 07:30 MCV 87.3 fl (80-96) 11/17/17 07:30 MCH 29.2 pg (25.7-33.7) 11/17/17 07:30 MCHC 33.5 g/dl (32.0-36.0) 11/17/17 07:30 RDW 15.6 % (11.6-15.6) 11/17/17 07:30 Plt Count 233 K/MM3 (134-434) 11/17/17 07:30 MPV 7.8 fl (7.5-11.1) 11/17/17 07:30 lab noted Assessment: 11/17/17 10:46 withdrawal sx Plan: continue detox
[2017-11-17 11:17] LABS: CHLORIDE 110 mmol/L (98-107); POTASSIUM 3.9 mmol/L (3.5-5.1); SODIUM 143 mmol/L (136-145)
[2017-11-17 12:32] LABS: ALBUMIN 3.3 g/dl (3.4-5.0); ALK PHOS 80 U/L (45-117); ANION GAP 8 (8-16); BILIRUBIN,TOTAL 0.6 mg/dL (0.2-1.0); BLOOD UREA NITROGEN 7 mg/dL (7-18); CALCIUM 8.7 mg/dL (8.5-10.1); CO2 25 mmol/L (21-32); CREATININE 0.5 mg/dL (0.55-1.02); GLUCOSE,RANDOM 73 mg/dL (74-106); SGOT/AST 27 U/L (15-37); SGPT/ALT 24 U/L (12-78); TOT PROT 6.7 g/dl (6.4-8.2)
--- NOTE | 2017-11-17 15:30 | EKG ---
Test Reason : Blood Pressure : / mmHG Vent. Rate : 066 BPM Atrial Rate : 066 BPM P-R Int : 180 ms QRS Dur : 082 ms QT Int : 446 ms P-R-T Axes : 049 068 055 degrees QTc Int : 467 ms NORMAL SINUS RHYTHM NORMAL ECG WHEN COMPARED WITH ECG OF 31-DEC-2016 16:51, T WAVE AMPLITUDE HAS INCREASED IN ANTERIOR LEADS Confirmed by ELIZABETH PABLO, WES ([id number]) on 11/17/2017 3:29:35 PM Referred By: Confirmed By:WES JOHNSON MD
[2017-11-17] MEDS: SIMETHICONE 80 MG TAB.CHEW (FP) PO PRN ×2 (17:42→22:20)
[2017-11-17] MEDS ORDERED: MELATONIN 5 MG TABLETS PO PRN (22:00)
[2017-11-17] MEDS: THIAMINE HCL 100 MG TABLET (FP) PO SCH (22:19)
[2017-11-17] MEDS: ASENAPINE 5 MG TAB SL SCH (22:21)
[2017-11-18] MEDS: chlordiazePOXIDE HCL 25 MG CAPSULE PO SCH ×4 (05:54→22:15)
[2017-11-18] MEDS: FERROUS SO4 325 MG TABLET (FP) PO SCH ×3 (08:27→17:51)
[2017-11-18] MEDS: PRENATAL VITAMINS W/ FOLIC ACID TABLET (FP) PO SCH (10:39)
[2017-11-18] MEDS: NICOTINE 14 MG/24 HOURS TOPICAL PATCH TD SCH (10:41)
--- NOTE | 2017-11-18 12:30 | PN ---
S CIWA - CIWA Score Nausea/Vomitin-Mild Nausea/No Vomiting Muscle Tremors: 3 Anxiety: 3 Agitation: 3 Paroxysmal Sweats: 1-Minimal Palms Moist Orientation: 0-Oriented Tacttile Disturbances: 1-Very Mild Itch/Numbness Auditory Disturbances: 0-None Visual Disturbances: 0-None Headache: 0-None Present CIWA-Ar Total Score: 12 BHS Progress Note (SOAP) Subjective: sweat tremor anxiety restlessness Objective: 11/18/17 12:29 Vital Signs Temperature 98 F 11/18/17 09:31 Pulse Rate 74 11/18/17 09:31 Respiratory Rate 18 11/18/17 09:31 Blood Pressure 100/57 11/18/17 09:31 O2 Sat by Pulse Oximetry (%) Laboratory Last Values WBC 5.6 K/mm3 (4.0-10.0) D 11/17/17 07:30 RBC 3.72 M/mm3 (3.60-5.2) 11/17/17 07:30 Hgb 10.9 GM/dL (10.7-15.3) 11/17/17 07:30 Hct 32.4 % (32.4-45.2) 11/17/17 07:30 MCV 87.3 fl (80-96) 11/17/17 07:30 MCH 29.2 pg (25.7-33.7) 11/17/17 07:30 MCHC 33.5 g/dl (32.0-36.0) 11/17/17 07:30 RDW 15.6 % (11.6-15.6) 11/17/17 07:30 Plt Count 233 K/MM3 (134-434) 11/17/17 07:30 MPV 7.8 fl (7.5-11.1) 11/17/17 07:30 Sodium 143 mmol/L (136-145) 11/17/17 07:30 Potassium 3.9 mmol/L (3.5-5.1) 11/17/17 07:30 Chloride 110 mmol/L (98-107) H 11/17/17 07:30 Carbon Dioxide 25 mmol/L (21-32) 11/17/17 07:30 Anion Gap 8 (8-16) 11/17/17 07:30 BUN 7 mg/dL (7-18) 11/17/17 07:30 Creatinine 0.5 mg/dL (0.55-1.02) L 11/17/17 07:30 Creat Clearance w eGFR > 60 (>60) 11/17/17 07:30 Random Glucose 73 mg/dL (74-106) L 11/17/17 07:30 Calcium 8.7 mg/dL (8.5-10.1) 11/17/17 07:30 Total Bilirubin 0.6 mg/dL (0.2-1.0) D 11/17/17 07:30 AST 27 U/L (15-37) 11/17/17 07:30 ALT 24 U/L (12-78) 11/17/17 07:30 Alkaline Phosphatase 80 U/L (45-117) 11/17/17 07:30 Total Protein 6.7 g/dl (6.4-8.2) 11/17/17 07:30 Albumin 3.3 g/dl (3.4-5.0) L 11/17/17 07:30 RPR Titer Nonreactive (NONREACTIVE) 11/17/17 07:30 lab noted Assessment: 11/18/17 12:29 withdrawal sx Plan: continue detox
[2017-11-18] MEDS: LISINOPRIL 10 MG TABLET (FP) PO SCH (13:03)
[2017-11-18 14:50] LABS: URINE APPEARANCE CLEAR; URINE BILIRUBIN NEGATIVE (<2.0 mg/dL); URINE COLOR STRAW; URINE GLUCOSE (UA) NEGATIVE (NEGATIVE); URINE KETONE NEGATIVE (NEGATIVE); URINE LEUK ESTERASE NEGATIVE (NEGATIVE); URINE NITRITE NEGATIVE (NEGATIVE); URINE PROTEIN NEGATIVE (NEGATIVE); URINE UROBILINOGEN NEGATIVE mg/dL (0.2-1.0)
[2017-11-18] MEDS: THIAMINE HCL 100 MG TABLET (FP) PO SCH (22:15)
[2017-11-18] MEDS: ASENAPINE 5 MG TAB SL SCH (22:15)
[2017-11-19] MEDS: chlordiazePOXIDE 5 MG CAPSULE PO SCH ×2 (05:48→10:41)
[2017-11-19] MEDS: FERROUS SO4 325 MG TABLET (FP) PO SCH ×2 (07:51→12:16)
[2017-11-19] MEDS: LISINOPRIL 10 MG TABLET (FP) PO SCH (10:41)
[2017-11-19] MEDS: PRENATAL VITAMINS W/ FOLIC ACID TABLET (FP) PO SCH (10:41)
[2017-11-19] MEDS: NICOTINE 14 MG/24 HOURS TOPICAL PATCH TD SCH (10:41)
[2017-11-19 13:38] VITALS: BP 114/65; PULSE 95; TEMP 97.3
--- NOTE | 2017-11-19 14:45 | DS ---
[facility] Detox Discharge Summary Admission Date: 11/16/17 Discharge Date: 11/19/17 - History Present History: Alcohol Dependence Additional Comments: 37 years old female admitted on 11/16/17 for alcohol withdrawal sx feeling better denies withdrawal sx alert oriented x 3 no acute distress wants to go to [facility] out patient addiction clinic patient wants to go to out patient clinic that she is determine to maintain sober through recovery - Physical Exam Results Vital Signs: Vital Signs Temperature 97.3 F L 11/19/17 13:36 Pulse Rate 95 H 11/19/17 13:36 Respiratory Rate 18 11/19/17 13:36 Blood Pressure 114/65 11/19/17 13:36 O2 Sat by Pulse Oximetry (%) Pertinent Admission Physical Exam Findings: withdrawal sx Vital Signs Temperature 97.3 F L 11/19/17 13:36 Pulse Rate 95 H 11/19/17 13:36 Respiratory Rate 18 11/19/17 13:36 Blood Pressure 114/65 11/19/17 13:36 O2 Sat by Pulse Oximetry (%) Laboratory Last Values WBC 5.6 K/mm3 (4.0-10.0) D 11/17/17 07:30 RBC 3.72 M/mm3 (3.60-5.2) 11/17/17 07:30 Hgb 10.9 GM/dL (10.7-15.3) 11/17/17 07:30 Hct 32.4 % (32.4-45.2) 11/17/17 07:30 MCV 87.3 fl (80-96) 11/17/17 07:30 MCH 29.2 pg (25.7-33.7) 11/17/17 07:30 MCHC 33.5 g/dl (32.0-36.0) 11/17/17 07:30 RDW 15.6 % (11.6-15.6) 11/17/17 07:30 Plt Count 233 K/MM3 (134-434) 11/17/17 07:30 MPV 7.8 fl (7.5-11.1) 11/17/17 07:30 Sodium 143 mmol/L (136-145) 11/17/17 07:30 Potassium 3.9 mmol/L (3.5-5.1) 11/17/17 07:30 Chloride 110 mmol/L (98-107) H 11/17/17 07:30 Carbon Dioxide 25 mmol/L (21-32) 11/17/17 07:30 Anion Gap 8 (8-16) 11/17/17 07:30 BUN 7 mg/dL (7-18) 11/17/17 07:30 Creatinine 0.5 mg/dL (0.55-1.02) L 11/17/17 07:30 Creat Clearance w eGFR > 60 (>60) 11/17/17 07:30 Random Glucose 73 mg/dL (74-106) L 11/17/17 07:30 Calcium 8.7 mg/dL (8.5-10.1) 11/17/17 07:30 Total Bilirubin 0.6 mg/dL (0.2-1.0) D 11/17/17 07:30 AST 27 U/L (15-37) 11/17/17 07:30 ALT 24 U/L (12-78) 11/17/17 07:30 Alkaline Phosphatase 80 U/L (45-117) 11/17/17 07:30 Total Protein 6.7 g/dl (6.4-8.2) 11/17/17 07:30 Albumin 3.3 g/dl (3.4-5.0) L 11/17/17 07:30 Urine Color Straw 11/18/17 11:00 Urine Appearance Clear 11/18/17 11:00 Urine pH 7.0 (5.0-8.0) D 11/18/17 11:00 Ur Specific [place] 1.008 (1.001-1.035) 11/18/17 11:00 Urine Protein Negative (NEGATIVE) 11/18/17 11:00 Urine Glucose (UA) Negative (NEGATIVE) 11/18/17 11:00 Urine Ketones Negative (NEGATIVE) 11/18/17 11:00 Urine Blood Negative (NEGATIVE) 11/18/17 11:00 Urine Nitrite Negative (NEGATIVE) 11/18/17 11:00 Urine Bilirubin Negative (<2.0 mg/dL) 11/18/17 11:00 Urine Urobilinogen Negative mg/dL (0.2-1.0) 11/18/17 11:00 Ur Leukocyte Esterase Negative (NEGATIVE) 11/18/17 11:00 RPR Titer Nonreactive (NONREACTIVE) 11/17/17 07:30 lab noted - Treatment Hospital Course: Detox Protocol Followed, Detoxed Safely, Responded well, Discharged Condition Good, Rehab Referral Accepted Patient has Accepted a Rehab Referral to: [facility] - Medication Discharge Medications: Ambulatory Orders Ferrous Sulfate 325 mg PO TID 11/16/17 Lisinopril 10 mg PO DAILY 11/16/17 Metoprolol Succinate [Toprol Xl] 50 mg PO DAILY 11/16/17 Asenapine [Saphris -] 5 mg SL HS #30 tab 11/17/17 - Diagnosis (1) Alcohol dependence with uncomplicated withdrawal Status: Acute (2) Nicotine dependence Status: Acute Qualifiers: Nicotine product type: cigarettes Substance use status: in withdrawal Qualified Code(s): F17.213 - Nicotine dependence, cigarettes, with withdrawal (3) HTN (hypertension) Status: Chronic Qualifiers: Hypertension type: essential hypertension Qualified Code(s): I10 - Essential (primary) hypertension - AMA Did Patient Leave Against Medical Advice: No
[2017-11-20] MEDS ORDERED: chlordiazePOXIDE HCL 10 MG CAPSULE PO SCH (05:00)
== END 2017-11-19 14:05 | disposition home or self-care (01) | DRG 775 ==
LOC: YASAS 13:51 → Y6N 22:50
PROVIDERS: ADMIT Surgery; ATTEND Surgery
PROC: HZ2ZZZZ Detoxification Services for Substance Abuse Treatment (ICD-10-PCS; principal; 2017-11-16)
DX: F10.230 Alcohol dependence with withdrawal, uncomplicated (principal); F17.213 Nicotine dependence, cigarettes, with withdrawal; F19.24 Other psychoactive substance dependence with psychoactive substance-induced mood disorder; F10.24 Alcohol dependence with alcohol-induced mood disorder; F33.2 Major depressive disorder, recurrent severe without psychotic features; G47.00 Insomnia, unspecified; I10 Essential (primary) hypertension; E03.9 Hypothyroidism, unspecified; I48.91 Unspecified atrial fibrillation; Z91.14 Patient's other noncompliance with medication regimen; Z87.19 Personal history of other diseases of the digestive system; Z86.2 Personal history of diseases of the blood and blood-forming organs and certain disorders involving the immune mechanism; Z87.42 Personal history of other diseases of the female genital tract
CPT/HCPCS: 36415; 80053; 81003; 85027; 86593; 93005; 93010

== ENCOUNTER 2017-11-16 16:18 | Emergency (ER) | payer OTHER ==
[2017-11-16 16:57] VITALS: PULSE 105; TEMP 97.9; BMI 29.9
--- NOTE | 2017-11-16 17:44 | PDOC ---
History of Present Illness - General Chief Complaint: Alcohol intoxication Stated Complaint: INTOX Time Seen by Provider: 11/16/17 16:45 History Source: Patient Exam Limitations: No Limitations - History of Present Illness Initial Comments: This is a 37 YOF with h/o alcoholism, recent elective chemical (10/29/17 ), and A-fib (used to be on coumadin but was taken off this medication for unknown reasons) who p/w severe headache for the past two days since having fallen and hit her head with questionable loss of consciousness. She was sent in by [facility] Detox provider Dr. Medeiros for this headache. The patient currently does have a room at [facility] and can be sent back when medically cleared. Past History - Past Medical History Allergies/Adverse Reactions: Allergies Allergy/AdvReac Type Severity Reaction Status Date / Time latex Allergy Hives Verified 11/16/17 15:06 lactose AdvReac Severe diarrhea Verified 11/16/17 15:06 NKDA Allergy Uncoded 11/16/17 15:06 Home Medications: Ambulatory Orders Ferrous Sulfate 325 mg PO TID 11/16/17 Lisinopril 10 mg PO DAILY 11/16/17 Metoprolol Succinate [Toprol Xl] 50 mg PO DAILY 11/16/17 Anemia: Yes (HX/O) Asthma: No Cancer: No Cardiac Disorders: Yes (atrial fibrilation by history) CVA: No COPD: No CHF: No Dementia: No Diabetes: No GI Disorders: Yes (gastric ulcer s/p cuaterization 2016) Disorders: No HTN: Yes (non compliance) Hypercholesterolemia: No Kidney Stones: No Liver Disease: No Seizures: No Thyroid Disease: Yes (HYPO no med) - Surgical History Abdominal Surgery: Yes (gastric bypass in 07/2014) Appendectomy: No Cardiac Surgery: No Cholecystectomy: No Lung Surgery: No Neurologic Surgery: No Orthopedic Surgery: No - Reproductive History PID: No - Suicide/Smoking/Psychosocial Hx Smoking History: Current every day smoker Have you smoked in the past 12 months: Yes Number of Cigarettes Smoked Daily: 5 Cigars Per Day: 0 Information on smoking cessation initiated: No 'Breaking Loose' booklet given: 11/16/17 Hx Alcohol Use: No Drug/Substance Use Hx: No Substance Use Type: Alcohol Hx Substance Use Treatment: Yes ([facility] ) *Physical Exam - Vital Signs Last Vital Signs Temp Pulse Resp BP Pulse Ox 97.9 F 105 H 18 110/72 100 11/16/17 16:20 11/16/17 16:20 11/16/17 16:20 11/16/17 16:20 11/16/17 16:20 ED Treatment Course - ADDITIONAL ORDERS Additional order review: Laboratory Results 11/16/17 17:25 Urine HCG, Qual Negative - RADIOLOGY Radiology Studies Ordered: Category Date Time Status HEAD CT WITHOUT CONTRAST [CT] Stat CT Scan 11/16/17 17:10 Ordered *DC/Admit/Observation/Transfer Diagnosis at time of Disposition: Alcohol abuse Headache Qualifiers: Headache type: unspecified Headache chronicity pattern: acute headache Intractability: not intractable Qualified Code(s): R51 - Headache Concussion Qualifiers: Encounter type: initial encounter Loss of consciousness presence/duration: with LOC of unspecified duration Qualified Code(s): S06.0X9A - Concussion with loss of consciousness of unspecified duration, initial encounter - Discharge Dispostion Condition at time of disposition: Stable Decision to Admit order: No - Referrals - Patient Instructions Printed Discharge Instructions: DI for Concussion, DI for Headache Additional Instructions: You were seen in the ER for headache after a head injury. We did an exam, blood and urine labs, and a head CT, and we did not find any signs of an emergency. Your pain improved with the medications we gave you here in the ER. After our assessment, we believe you are not having a medical emergency and you are safe to go home. Please take befr-eky-jwhizmo pain relievers like naproxen (Aleve) or ibuprofen (Motrin) or Tylenol. Please go back to [facility] and follow their treatment recommendations. Follow up with your regular doctor(s) in the next 1-3 days. Call their clinic [facility], tell them you were seen in the ER, and tell them you need an appointment. Please come back to the ER at any time, 24 hours a day, for any new or worsening symptoms, like worsening headache, new numbness/tingling, fainting, dizziness, new vision changes, high fever, or other symptoms. If you are having symptoms that make it unsafe to drive, please call 911. - Post Discharge Activity
--- NOTE | 2017-11-16 18:43 | PDOC ---
Attending Attestation - Resident Resident Name: Isamar Alba - ED Attending Attestation I have performed the following: I have examined & evaluated the patient, The case was reviewed & discussed with the resident, I agree w/resident's findings & plan, Exceptions are as noted - HPI HPI: 11/16/17 18:37 37 year old female c/ hx of afib NOT on anticoagulation, anemia, hx of alcohol abuse (daily drinker) sent for medical evaluation prior to admission for alcohol detox. Two days ago, the patient had a mechanical fall and hit her head. No LOC. However, continued to have global headaches. No nausea, vomiting. Denies numbness, weakness, tingling. Pt reports last drinking alcohol today. Does not feel like in withdrawls. - Physicial Exam PE: 11/16/17 18:43 GENERAL: Awake, alert, and fully oriented, in no acute distress. HEAD: No signs of trauma EYES: PERRLA, EOMI, sclera anicteric, conjunctiva clear ENT: Auricles normal inspection, hearing grossly normal, nares patent NECK: Normal ROM, supple LUNGS: Breath sounds equal, clear to auscultation bilaterally. No wheezes, and no crackles HEART: Regular rate and rhythm, normal S1 and S2, no murmurs, rubs or gallops ABDOMEN: Soft, nontender, No guarding, no rebound. No masses EXTREMITIES: Normal range of motion, no edema. No clubbing or cyanosis. No cords, erythema, or tenderness NEUROLOGICAL: Cranial nerves II through XII grossly intact. Normal speech, normal gait SKIN: Warm, Dry, normal turgor, no rashes or lesions noted. - Medical Decision Making 11/16/17 18:43 Vital Signs Temp Pulse Resp BP Pulse Ox 97.9 F 105 H 18 110/72 100 11/16/17 16:20 11/16/17 16:20 11/16/17 16:20 11/16/17 16:20 11/16/17 16:20 Will obtain a head CT to r/o ICH, skull fracture. However, I suspect the patient may have sustained a concussion. Head CT, labs. If the workup is unremarkable, pt can be sent back to [address] [place] [address] for detox admission.
--- NOTE | 2017-11-16 20:12 | PDOC ---
*Physical Exam - Vital Signs Last Vital Signs Temp Pulse Resp BP Pulse Ox 97.9 F 105 H 18 110/72 100 11/16/17 16:20 11/16/17 16:20 11/16/17 16:20 11/16/17 16:20 11/16/17 16:20 ED Treatment Course - LABORATORY CBC & Chemistry Diagram: 11/16/17 20:55 11/16/17 20:55 - ADDITIONAL ORDERS Additional order review: Laboratory Results 11/16/17 17:25 Urine HCG, Qual Negative Medical Decision Making - Medical Decision Making 11/16/17 20:03 The patient was signed out to me by Dr. Alba, day team. The patient is a 37F who presented after a fall. Pending CT head read. 11/16/17 21:20 CT head negative. Pt stable to go back to [facility]. Will give home dose of BP meds. *DC/Admit/Observation/Transfer Diagnosis at time of Disposition: Alcohol abuse Headache Qualifiers: Headache type: unspecified Headache chronicity pattern: acute headache Intractability: not intractable Qualified Code(s): R51 - Headache Concussion Qualifiers: Encounter type: initial encounter Loss of consciousness presence/duration: with LOC of unspecified duration Qualified Code(s): S06.0X9A - Concussion with loss of consciousness of unspecified duration, initial encounter - Discharge Dispostion Disposition: HOME Condition at time of disposition: Stable Decision to Admit order: No - Referrals - Patient Instructions Printed Discharge Instructions: DI for Headache Additional Instructions: You were seen in the ER for headache after a head injury. We did an exam, blood and urine labs, and a head CT, and we did not find any signs of an emergency. Your pain improved with the medications we gave you here in the ER. After our assessment, we believe you are not having a medical emergency and you are safe to go home. Please take rgik-lql-hcsvwkr pain relievers like naproxen (Aleve) or ibuprofen (Motrin) or Tylenol. Please go back to [facility] and follow their treatment recommendations. Follow up with your regular doctor(s) in the next 1-3 days. Call their clinic [facility], tell them you were seen in the ER, and tell them you need an appointment. Please come back to the ER at any time, 24 hours a day, for any new or worsening symptoms, like worsening headache, new numbness/tingling, fainting, dizziness, new vision changes, high fever, or other symptoms. If you are having symptoms that make it unsafe to drive, please call 911. - Post Discharge Activity
[2017-11-16] MEDS ORDERED: chlordiazePOXIDE HCL 25 MG CAPSULE PO ONE (20:14)
[2017-11-16 21:01] LABS: EOS % 1.1 % (0-4.5); HEMATOCRIT 34.1 % (32.4-45.2); HEMOGLOBIN 11.5 GM/dL (10.7-15.3); LYMPH % 38.7 % (8-40); MCH 29.3 pg (25.7-33.7); MCHC 33.7 g/dl (32.0-36.0); MEAN PLT VOLUME 7.2 fl (7.5-11.1); MONO % 11.4 % (3.8-10.2); NEUT % 47.8 % (42.8-82.8); PLATELET COUNT 266 K/MM3 (134-434); RBC 3.92 M/mm3 (3.60-5.2); RDW 15.9 % (11.6-15.6)
[2017-11-16 21:15] LABS: PROTHROMBIN TIME (PATIENT) 11.3 SEC (9.7-13.0)
[2017-11-16] MEDS ORDERED: chlordiazePOXIDE HCL 25 MG CAPSULE ONE (21:16)
[2017-11-16 21:24] LABS: ALBUMIN 3.6 g/dl (3.4-5.0); ANION GAP 9 (8-16); BILIRUBIN,TOTAL 0.2 mg/dL (0.2-1.0); BLOOD UREA NITROGEN 6 mg/dL (7-18); CALCIUM 8.5 mg/dL (8.5-10.1); CHLORIDE 111 mmol/L (98-107); CO2 23 mmol/L (21-32); CREATININE 0.7 mg/dL (0.55-1.02); GLUCOSE,RANDOM 106 mg/dL (74-106); SGOT/AST 27 U/L (15-37); SGPT/ALT 28 U/L (12-78); SODIUM 143 mmol/L (136-145); TOT PROT 7.5 g/dl (6.4-8.2)
[2017-11-16] MEDS ORDERED: LISINOPRIL 10 MG TABLET (FP) PO ONE (21:24)
[2017-11-16] MEDS ORDERED: METOPROLOL TARTRATE 50 MG TABLET (FP) PO ONE (21:24)
[2017-11-16 21:25] LABS: ALK PHOS 85 U/L (45-117)
[2017-11-16 21:26] VITALS: BP 156/100
[2017-11-16] MEDS ORDERED: LISINOPRIL 5 MG TABLET (FP) ONE (21:27)
[2017-11-16] MEDS ORDERED: METOPROLOL TARTRATE 50 MG TABLET (FP) ONE (21:27)
== END 2017-11-16 21:38 | disposition home or self-care (01) ==
LOC: JER 16:18
DX: S06.0X9A Concussion with loss of consciousness of unspecified duration, initial encounter (principal); F10.10 Alcohol abuse, uncomplicated; W01.198A Fall on same level from slipping, tripping and stumbling with subsequent striking against other object, initial encounter; I48.91 Unspecified atrial fibrillation; I10 Essential (primary) hypertension; Z91.14 Patient's other noncompliance with medication regimen; E03.9 Hypothyroidism, unspecified; D64.9 Anemia, unspecified; Z87.19 Personal history of other diseases of the digestive system
CPT/HCPCS: 36415; 70450-TC; 80053; 84703; 85025; 85610; 99283-25

== ENCOUNTER 2020-12-11 13:25 | Inpatient (IN) | payer OTHER ==
[2020-12-11 15:19] VITALS: BMI 20.6
[2020-12-11] MEDS ORDERED: ACETAMINOPHEN 325 MG TABLET (FP) PO PRN (19:18)
[2020-12-11] MEDS ORDERED: P-EPHED 60MG/TRIPROLIDI 2.5MG TABLET PO PRN (19:18)
[2020-12-11] MEDS ORDERED: guaiFENesin 200 MG/10 ML 10 ML UNIT-DOSE CUPS PO PRN (19:18)
[2020-12-11] MEDS ORDERED: LOPERAMIDE HCL 2 MG CAPSULE PO PRN (19:18)
[2020-12-11] MEDS ORDERED: MAGNESIUM CITRATE 300 ML BOTTLE PO PRN (19:18)
[2020-12-11] MEDS ORDERED: MAGNESIUM HYDROX 2400MG/30ML ORAL SUSPENSION 30 ML CUP PO PRN (19:18)
[2020-12-11] MEDS: PANTOPRAZOLE 20 MG TABLET PO SCH (21:44)
[2020-12-11] MEDS: THIAMINE HCL 100 MG TABLET (FP) PO SCH (21:45)
[2020-12-11] MEDS: FERROUS SO4 325 MG TABLET (FP) PO SCH (21:45)
[2020-12-11] MEDS ORDERED: MELATONIN 5 MG TABLETS PO SCH (22:00)
[2020-12-12] MEDS: PRENATAL VITAMINS W/ FOLIC ACID TABLET (FP) PO SCH (10:16)
[2020-12-12] MEDS: FERROUS SO4 325 MG TABLET (FP) PO SCH ×2 (10:18→21:45)
[2020-12-12] MEDS: LISINOPRIL 10 MG TABLET PO SCH (10:18)
[2020-12-12] MEDS: PANTOPRAZOLE 20 MG TABLET PO SCH (10:18)
[2020-12-12] MEDS: hydrOXYzine PAMOATE 50 MG CAPSULE (FP) PO PRN (10:18)
[2020-12-12 11:28] LABS: HEMATOCRIT 34.2 % (32.4-45.2); MCH 29.9 pg (25.7-33.7); MCHC 32.3 g/dl (32.0-36.0); MEAN CELL VOLUME 92.7 fl (80-96); MEAN PLT VOLUME 8.5 fl (7.5-11.1); PLATELET COUNT 224 K/MM3 (134-434); RBC 3.69 M/mm3 (3.60-5.2); RDW 17.3 % (11.6-15.6); WHITE BLOOD COUNT 3.1 K/mm3 (4.0-10.0)
[2020-12-12 12:29] LABS: ALBUMIN 3.7 g/dl (3.4-5.0); BLOOD UREA NITROGEN 8.6 mg/dL (7-18); CALCIUM 9.4 mg/dL (8.5-10.1)
[2020-12-12 12:33] LABS: BILIRUBIN,TOTAL 0.7 mg/dL (0.2-1); CREATININE 0.6 mg/dL (0.55-1.3); TOT PROT 7.3 g/dl (6.4-8.2)
[2020-12-12] MEDS: SUVOREXANT 10 MG TABLET PO PRN (21:46)
[2020-12-12] MEDS: THIAMINE HCL 100 MG TABLET (FP) PO SCH (21:47)
[2020-12-13] MEDS: hydrOXYzine PAMOATE 50 MG CAPSULE (FP) PO PRN ×2 (06:21→16:09)
[2020-12-13] MEDS: PANTOPRAZOLE 20 MG TABLET PO SCH (10:08)
[2020-12-13] MEDS: FERROUS SO4 325 MG TABLET (FP) PO SCH ×2 (10:08→21:22)
[2020-12-13] MEDS: PRENATAL VITAMINS W/ FOLIC ACID TABLET (FP) PO SCH (10:08)
[2020-12-13] MEDS: LISINOPRIL 10 MG TABLET PO SCH (10:09)
[2020-12-13] MEDS: THIAMINE HCL 100 MG TABLET (FP) PO SCH (21:22)
[2020-12-13] MEDS: SUVOREXANT 10 MG TABLET PO PRN (21:23)
[2020-12-14 00:20] LABS: URINE APPEARANCE CLEAR; URINE BILIRUBIN NEGATIVE (NEGATIVE); URINE COLOR YELLOW; URINE GLUCOSE (UA) NEGATIVE (NEGATIVE); URINE KETONE NEGATIVE (NEGATIVE); URINE LEUK ESTERASE NEGATIVE (NEGATIVE); URINE NITRITE NEGATIVE (NEGATIVE); URINE PROTEIN NEGATIVE (NEGATIVE); URINE UROBILINOGEN 0.2 mg/dL (0.2-1.0)
[2020-12-14] MEDS: hydrOXYzine PAMOATE 50 MG CAPSULE (FP) PO PRN (01:49)
[2020-12-14] MEDS: FERROUS SO4 325 MG TABLET (FP) PO SCH ×2 (10:02→21:32)
[2020-12-14] MEDS: PRENATAL VITAMINS W/ FOLIC ACID TABLET (FP) PO SCH (10:02)
[2020-12-14] MEDS: PANTOPRAZOLE 20 MG TABLET PO SCH (10:02)
[2020-12-14] MEDS: LISINOPRIL 10 MG TABLET PO SCH (10:02)
[2020-12-14] MEDS: THIAMINE HCL 100 MG TABLET (FP) PO SCH (21:32)
[2020-12-14] MEDS: SUVOREXANT 10 MG TABLET PO PRN (21:33)
[2020-12-15] MEDS: hydrOXYzine PAMOATE 50 MG CAPSULE (FP) PO PRN ×2 (01:26→10:00)
[2020-12-15] MEDS: PRENATAL VITAMINS W/ FOLIC ACID TABLET (FP) PO SCH (09:59)
[2020-12-15] MEDS: PANTOPRAZOLE 20 MG TABLET PO SCH (09:59)
[2020-12-15] MEDS: LISINOPRIL 10 MG TABLET PO SCH (09:59)
[2020-12-15] MEDS: FERROUS SO4 325 MG TABLET (FP) PO SCH ×2 (09:59→21:38)
[2020-12-15] MEDS: MAG HYDROX/AL HYDROX/SIMETH 30 ML UNIT-DOSE CUP PO PRN (13:37)
[2020-12-15 14:06] LABS: SARS-CoV-2 NAA Not Detected (Not Detected)
[2020-12-15] MEDS: THIAMINE HCL 100 MG TABLET (FP) PO SCH (21:38)
[2020-12-15] MEDS ORDERED: SUVOREXANT 10 MG TABLET PO PRN (22:00)
[2020-12-16] MEDS: hydrOXYzine PAMOATE 50 MG CAPSULE (FP) PO PRN ×2 (08:50→21:44)
[2020-12-16] MEDS: FERROUS SO4 325 MG TABLET (FP) PO SCH ×2 (09:57→21:44)
[2020-12-16] MEDS: PRENATAL VITAMINS W/ FOLIC ACID TABLET (FP) PO SCH (09:58)
[2020-12-16] MEDS: PANTOPRAZOLE 20 MG TABLET PO SCH (09:58)
[2020-12-16] MEDS: LISINOPRIL 10 MG TABLET PO SCH (09:59)
[2020-12-16] MEDS ORDERED: METHOCARBAMOL 500 MG TABLET PO PRN (16:16)
[2020-12-16] MEDS: THIAMINE HCL 100 MG TABLET (FP) PO SCH (21:43)
[2020-12-17] MEDS: hydrOXYzine PAMOATE 50 MG CAPSULE (FP) PO PRN (06:20)
[2020-12-17] MEDS: PRENATAL VITAMINS W/ FOLIC ACID TABLET (FP) PO SCH (10:33)
[2020-12-17] MEDS: FERROUS SO4 325 MG TABLET (FP) PO SCH ×2 (10:33→21:38)
[2020-12-17] MEDS: PANTOPRAZOLE 20 MG TABLET PO SCH (10:34)
[2020-12-17] MEDS: LISINOPRIL 10 MG TABLET PO SCH (10:34)
[2020-12-17] MEDS ORDERED: hydrOXYzine PAMOATE 50 MG CAPSULE (FP) PO PRN ×3 (11:28→13:46)
[2020-12-17] MEDS: THIAMINE HCL 100 MG TABLET (FP) PO SCH (21:38)
[2020-12-17] MEDS: hydrOXYzine PAMOATE 25 MG CAPSULE (FP) PO PRN (21:38)
[2020-12-17] MEDS: traZODone HCL 100 MG TABLET (FP) PO SCH (23:02)
[2020-12-18] MEDS: hydrOXYzine PAMOATE 25 MG CAPSULE (FP) PO PRN ×3 (09:01→23:22)
[2020-12-18] MEDS: PRENATAL VITAMINS W/ FOLIC ACID TABLET (FP) PO SCH (10:23)
[2020-12-18] MEDS: LISINOPRIL 10 MG TABLET PO SCH (10:23)
[2020-12-18] MEDS: PANTOPRAZOLE 20 MG TABLET PO SCH (10:23)
[2020-12-18] MEDS: FERROUS SO4 325 MG TABLET (FP) PO SCH ×2 (10:25→21:29)
[2020-12-18] MEDS: THIAMINE HCL 100 MG TABLET (FP) PO SCH (21:29)
[2020-12-18] MEDS: traZODone HCL 100 MG TABLET (FP) PO SCH (23:23)
[2020-12-19] MEDS: hydrOXYzine PAMOATE 25 MG CAPSULE (FP) PO PRN ×2 (06:19→14:41)
[2020-12-19] MEDS: FERROUS SO4 325 MG TABLET (FP) PO SCH ×2 (10:37→22:01)
[2020-12-19] MEDS: LISINOPRIL 10 MG TABLET PO SCH (10:37)
[2020-12-19] MEDS: PRENATAL VITAMINS W/ FOLIC ACID TABLET (FP) PO SCH (10:38)
[2020-12-19] MEDS: PANTOPRAZOLE 20 MG TABLET PO SCH (10:38)
[2020-12-19] MEDS: traZODone HCL 100 MG TABLET (FP) PO SCH (22:02)
[2020-12-19] MEDS: THIAMINE HCL 100 MG TABLET (FP) PO SCH (22:02)
[2020-12-20] MEDS: FERROUS SO4 325 MG TABLET (FP) PO SCH ×2 (10:26→22:09)
[2020-12-20] MEDS: PRENATAL VITAMINS W/ FOLIC ACID TABLET (FP) PO SCH (10:27)
[2020-12-20] MEDS: LISINOPRIL 10 MG TABLET PO SCH (10:28)
[2020-12-20] MEDS: PANTOPRAZOLE 20 MG TABLET PO SCH (10:29)
[2020-12-20] MEDS: traZODone HCL 100 MG TABLET (FP) PO SCH (22:09)
[2020-12-20] MEDS: THIAMINE HCL 100 MG TABLET (FP) PO SCH (22:10)
[2020-12-21] MEDS: LISINOPRIL 10 MG TABLET PO SCH (10:45)
[2020-12-21] MEDS: FERROUS SO4 325 MG TABLET (FP) PO SCH ×2 (10:46→22:12)
[2020-12-21] MEDS: PRENATAL VITAMINS W/ FOLIC ACID TABLET (FP) PO SCH (10:46)
[2020-12-21] MEDS: PANTOPRAZOLE 20 MG TABLET PO SCH (10:46)
[2020-12-21] MEDS: THIAMINE HCL 100 MG TABLET (FP) PO SCH (22:12)
[2020-12-21] MEDS: traZODone HCL 100 MG TABLET (FP) PO SCH (22:13)
[2020-12-21] MEDS: MAG HYDROX/AL HYDROX/SIMETH 30 ML UNIT-DOSE CUP PO PRN (23:23)
[2020-12-22] MEDS: PRENATAL VITAMINS W/ FOLIC ACID TABLET (FP) PO SCH (10:38)
[2020-12-22] MEDS: PANTOPRAZOLE 20 MG TABLET PO SCH (10:38)
[2020-12-22] MEDS: FERROUS SO4 325 MG TABLET (FP) PO SCH ×2 (10:38→21:56)
[2020-12-22] MEDS: LISINOPRIL 10 MG TABLET PO SCH (10:38)
[2020-12-22] MEDS: MAG HYDROX/AL HYDROX/SIMETH 30 ML UNIT-DOSE CUP PO PRN (15:00)
[2020-12-22] MEDS: THIAMINE HCL 100 MG TABLET (FP) PO SCH (21:56)
[2020-12-22] MEDS: traZODone HCL 100 MG TABLET (FP) PO SCH (21:56)
[2020-12-23] MEDS: traZODone HCL 100 MG TABLET (FP) PO SCH ×2 (02:53→21:53)
[2020-12-23] MEDS: FERROUS SO4 325 MG TABLET (FP) PO SCH ×2 (10:44→21:53)
[2020-12-23] MEDS: PRENATAL VITAMINS W/ FOLIC ACID TABLET (FP) PO SCH (10:45)
[2020-12-23] MEDS: LISINOPRIL 10 MG TABLET PO SCH (10:45)
[2020-12-23] MEDS: PANTOPRAZOLE 20 MG TABLET PO SCH (10:45)
[2020-12-23] MEDS: THIAMINE HCL 100 MG TABLET (FP) PO SCH (21:52)
[2020-12-24] MEDS: FERROUS SO4 325 MG TABLET (FP) PO SCH ×2 (10:30→21:47)
[2020-12-24] MEDS: LISINOPRIL 10 MG TABLET PO SCH (10:30)
[2020-12-24] MEDS: PRENATAL VITAMINS W/ FOLIC ACID TABLET (FP) PO SCH (10:31)
[2020-12-24] MEDS: PANTOPRAZOLE 20 MG TABLET PO SCH (10:31)
[2020-12-24] MEDS: THIAMINE HCL 100 MG TABLET (FP) PO SCH (21:46)
[2020-12-24] MEDS: traZODone HCL 100 MG TABLET (FP) PO SCH (21:47)
[2020-12-25 07:05] VITALS: BP 103/67; PULSE 67; TEMP 97.3
[2020-12-25] MEDS ORDERED: MASKS NR ONE (07:51)
[2020-12-25] MEDS ORDERED: PT OWN MED DRAWER 7, Y5N ONE (09:22)
[2020-12-25] MEDS: FERROUS SO4 325 MG TABLET (FP) PO SCH (09:40)
[2020-12-25] MEDS: LISINOPRIL 10 MG TABLET PO SCH (09:41)
[2020-12-25] MEDS: PANTOPRAZOLE 20 MG TABLET PO SCH (09:41)
[2020-12-25] MEDS: PRENATAL VITAMINS W/ FOLIC ACID TABLET (FP) PO SCH (09:41)
== END 2020-12-25 09:50 | disposition home or self-care (01) | DRG 772 ==
LOC: YASAS 13:25 → Y3N 18:17 → Y5N 19:19
PROVIDERS: ADMIT Allergy & Immunology; ATTEND Allergy & Immunology
PROC: HZ42ZZZ Group Counseling for Substance Abuse Treatment, Cognitive-Behavioral (ICD-10-PCS; principal; 2020-12-11)
DX: F10.20 Alcohol dependence, uncomplicated (principal); F10.24 Alcohol dependence with alcohol-induced mood disorder; F17.210 Nicotine dependence, cigarettes, uncomplicated; F41.9 Anxiety disorder, unspecified; F39 Unspecified mood [affective] disorder; D64.9 Anemia, unspecified; E03.9 Hypothyroidism, unspecified; I10 Essential (primary) hypertension; I48.91 Unspecified atrial fibrillation; K21.9 Gastro-esophageal reflux disease without esophagitis; Z87.11 Personal history of peptic ulcer disease; Z98.84 Bariatric surgery status; Z98.890 Other specified postprocedural states
CPT/HCPCS: 36415; 80053; 81003; 81025; 85027; 86780; C9803; U0003; U0005

== ENCOUNTER 2021-08-25 16:46 | Inpatient (IN) | payer OTHER ==
[2021-08-25 18:31] VITALS: BMI 21.6
[2021-08-25] MEDS ORDERED: MENTHOL/PHENOL 1 EACH UD MM PRN (22:03)
[2021-08-25] MEDS ORDERED: MAGNESIUM CITRATE 300 ML BOTTLE PO PRN (22:03)
[2021-08-25] MEDS ORDERED: MAGNESIUM HYDROX 2400MG/30ML ORAL SUSPENSION 30 ML CUP PO PRN (22:03)
[2021-08-25] MEDS ORDERED: LOPERAMIDE HCL 2 MG CAPSULE PO PRN (22:03)
[2021-08-25] MEDS ORDERED: chlordiazePOXIDE HCL 25 MG CAPSULE PO PRN (22:03)
[2021-08-25] MEDS ORDERED: MAG HYDROX/AL HYDROX/SIMETH 30 ML UNIT-DOSE CUP PO PRN (22:03)
[2021-08-25] MEDS ORDERED: guaiFENesin 200 MG/10 ML 10 ML UNIT-DOSE CUPS PO PRN (22:03)
[2021-08-25] MEDS ORDERED: ONDANSETRON *ODT* 4 MG TABLET SL PRN (22:03)
[2021-08-25] MEDS ORDERED: BISMUTH SUBSALICYLATE 524 MG/30 ML PO PRN (22:03)
[2021-08-25] MEDS ORDERED: P-EPHED 60MG/TRIPROLIDI 2.5MG TABLET PO PRN (22:03)
[2021-08-25] MEDS ORDERED: IBUPROFEN 400 MG TABLET (FP) PO PRN (22:03)
[2021-08-25] MEDS ORDERED: DICYCLOMINE HCL 10 MG CAPSULE PO PRN (22:03)
[2021-08-25] MEDS ORDERED: NICOTINE POLACRILEX 2 MG GUM BUC PRN (22:03)
[2021-08-25] MEDS ORDERED: ACETAMINOPHEN 325 MG TABLET (FP) PO PRN ×2 (22:03)
[2021-08-25] MEDS ORDERED: AMMONIUM LACTATE 12% LOTION 225 GM BOTTLE TP PRN (22:11)
[2021-08-26] MEDS: chlordiazePOXIDE HCL 25 MG CAPSULE PO SCH ×5 (02:41→22:25)
[2021-08-26] MEDS: LISINOPRIL 10 MG TABLET PO SCH ×2 (02:41→10:35)
[2021-08-26] MEDS: NICOTINE 14 MG/24 HOURS TOPICAL PATCH TD SCH (10:35)
[2021-08-26] MEDS: PRENATAL VITAMINS W/ FOLIC ACID TABLET (FP) PO SCH (10:38)
[2021-08-26 12:17] LABS: HEMATOCRIT 30.5 % (32.4-45.2); HEMOGLOBIN 10.2 GM/dL (10.7-15.3); MCH 31.3 pg (25.7-33.7); MCHC 33.5 g/dl (32.0-36.0); MEAN CELL VOLUME 93.4 fl (80-96); MEAN PLT VOLUME 8.1 fl (7.5-11.1); PLATELET COUNT 145 10^3/uL (134-434); RBC 3.27 M/mm3 (3.60-5.2); WHITE BLOOD COUNT 3.3 K/mm3 (4.0-10.0)
[2021-08-26] MEDS: NICOTINE 10 MG CARTRIDGE (INHALER) IH PRN ×2 (12:38→21:04)
[2021-08-26 12:44] LABS: CALCIUM 8.4 mg/dL (8.5-10.1)
[2021-08-26 12:45] LABS: ALBUMIN 3.1 g/dl (3.4-5.0); BLOOD UREA NITROGEN 9.3 mg/dL (7-18)
[2021-08-26 12:48] LABS: BILIRUBIN,TOTAL 0.9 mg/dL (0.2-1); CREATININE 0.6 mg/dL (0.55-1.3)
[2021-08-26 12:50] LABS: TOT PROT 6.2 g/dl (6.4-8.2)
[2021-08-26] MEDS: METHOCARBAMOL 500 MG TABLET PO PRN (18:25)
[2021-08-26] MEDS ORDERED: MELATONIN 5 MG TABLETS PO SCH (22:00)
[2021-08-26] MEDS: traZODone HCL 100 MG TABLET (FP) PO SCH (22:24)
[2021-08-26] MEDS: THIAMINE HCL 100 MG TABLET (FP) PO SCH (22:24)
[2021-08-27] MEDS: chlordiazePOXIDE HCL 25 MG CAPSULE PO SCH ×4 (06:45→22:30)
[2021-08-27] MEDS: METHOCARBAMOL 500 MG TABLET PO PRN ×2 (10:33→18:17)
[2021-08-27] MEDS: PRENATAL VITAMINS W/ FOLIC ACID TABLET (FP) PO SCH (10:33)
[2021-08-27] MEDS: LISINOPRIL 10 MG TABLET PO SCH (10:34)
[2021-08-27] MEDS: HYDROCORTISONE 1% TOPICAL CREAM 30 GM TUBE TP PRN (10:37)
[2021-08-27] MEDS: NICOTINE 14 MG/24 HOURS TOPICAL PATCH TD SCH (11:07)
[2021-08-27 11:08] LABS: SARS-CoV-2 NAA Not Detected (Not Detected)
[2021-08-27] MEDS: MINERAL OIL/PETROLAT/WATER TOPICAL CREAM 113 GM JAR TP SCH (15:54)
[2021-08-27] MEDS: NICOTINE 10 MG CARTRIDGE (INHALER) IH PRN ×2 (18:56→21:20)
[2021-08-27] MEDS: traZODone HCL 100 MG TABLET (FP) PO SCH (22:30)
[2021-08-27] MEDS: THIAMINE HCL 100 MG TABLET (FP) PO SCH (22:30)
[2021-08-28] MEDS ORDERED: chlordiazePOXIDE HCL 10 MG CAPSULE PO PRN
[2021-08-28] MEDS: chlordiazePOXIDE HCL 10 MG CAPSULE PO SCH ×4 (06:34→22:21)
[2021-08-28] MEDS: NICOTINE 14 MG/24 HOURS TOPICAL PATCH TD SCH (10:15)
[2021-08-28] MEDS: PRENATAL VITAMINS W/ FOLIC ACID TABLET (FP) PO SCH (10:15)
[2021-08-28] MEDS: LISINOPRIL 10 MG TABLET PO SCH (10:15)
[2021-08-28] MEDS: METHOCARBAMOL 500 MG TABLET PO PRN ×2 (10:15→22:23)
[2021-08-28] MEDS: MINERAL OIL/PETROLAT/WATER TOPICAL CREAM 113 GM JAR TP SCH (10:18)
[2021-08-28] MEDS: HYDROCORTISONE 1% TOPICAL CREAM 30 GM TUBE TP PRN (10:19)
[2021-08-28] MEDS: NICOTINE 10 MG CARTRIDGE (INHALER) IH PRN ×2 (15:00→20:53)
[2021-08-28] MEDS: traZODone HCL 100 MG TABLET (FP) PO SCH (22:20)
[2021-08-28] MEDS: THIAMINE HCL 100 MG TABLET (FP) PO SCH (22:20)
[2021-08-29] MEDS ORDERED: chlordiazePOXIDE HCL 10 MG CAPSULE PO SCH (05:00)
[2021-08-29 09:49] VITALS: BP 116/71; PULSE 85; TEMP 98.2
[2021-08-29] MEDS ORDERED: NICOTINE 21 MG/24 HOURS TOPICAL PATCH TD SCH (10:00)
[2021-08-29] MEDS: LISINOPRIL 10 MG TABLET PO SCH (10:49)
[2021-08-29] MEDS: PRENATAL VITAMINS W/ FOLIC ACID TABLET (FP) PO SCH (10:49)
[2021-08-29] MEDS: METHOCARBAMOL 500 MG TABLET PO PRN (10:49)
[2021-08-29] MEDS: MINERAL OIL/PETROLAT/WATER TOPICAL CREAM 113 GM JAR TP SCH (10:50)
[2021-08-30] MEDS ORDERED: chlordiazePOXIDE HCL 10 MG CAPSULE PO ONE (05:00)
== END 2021-08-29 11:12 | disposition home or self-care (01) | DRG 775 ==
LOC: YASAS 16:46 → Y6N 08-26 02:07
PROVIDERS: ADMIT Allergy & Immunology; ATTEND Allergy & Immunology
PROC: HZ2ZZZZ Detoxification Services for Substance Abuse Treatment (ICD-10-PCS; principal; 2021-08-26)
DX: F10.230 Alcohol dependence with withdrawal, uncomplicated (principal); F12.20 Cannabis dependence, uncomplicated; F17.210 Nicotine dependence, cigarettes, uncomplicated; F10.282 Alcohol dependence with alcohol-induced sleep disorder; F10.280 Alcohol dependence with alcohol-induced anxiety disorder; F10.24 Alcohol dependence with alcohol-induced mood disorder; F19.24 Other psychoactive substance dependence with psychoactive substance-induced mood disorder; F32.A Depression, unspecified; F43.10 Post-traumatic stress disorder, unspecified; F90.9 Attention-deficit hyperactivity disorder, unspecified type; D64.9 Anemia, unspecified; E03.9 Hypothyroidism, unspecified; I48.91 Unspecified atrial fibrillation; I10 Essential (primary) hypertension; K21.9 Gastro-esophageal reflux disease without esophagitis; L85.3 Xerosis cutis; Z87.11 Personal history of peptic ulcer disease; Z91.011 Allergy to milk products; Z91.040 Latex allergy status
CPT/HCPCS: 36415; 80053; 82607; 82728; 82746; 83540; 83550; 85027; 86780; C9803; U0003; U0005

== ENCOUNTER 2022-01-15 14:42 | Inpatient (IN) | payer OTHER ==
[2022-01-15 16:03] VITALS: BMI 20.9
[2022-01-15] MEDS ORDERED: BENZOCAINE/MENTHOL (CHLORASEPTIC ) LOZENGE MM PRN (16:26)
[2022-01-15] MEDS ORDERED: MAGNESIUM HYDROX 2400MG/30ML ORAL SUSPENSION 30 ML CUP PO PRN (16:26)
[2022-01-15] MEDS ORDERED: BISMUTH SUBSALICYLATE 524 MG/30 ML PO PRN (16:26)
[2022-01-15] MEDS ORDERED: DICYCLOMINE HCL 10 MG CAPSULE PO PRN (16:26)
[2022-01-15] MEDS ORDERED: MAGNESIUM CITRATE 300 ML BOTTLE PO PRN (16:26)
[2022-01-15] MEDS ORDERED: IBUPROFEN 400 MG TABLET (FP) PO PRN (16:26)
[2022-01-15] MEDS ORDERED: LOPERAMIDE HCL 2 MG CAPSULE PO PRN (16:26)
[2022-01-15] MEDS ORDERED: MAG HYDROX/AL HYDROX/SIMETH 30 ML UNIT-DOSE CUP PO PRN (16:26)
[2022-01-15] MEDS ORDERED: ACETAMINOPHEN 325 MG TABLET (FP) PO PRN ×2 (16:26)
[2022-01-15] MEDS: chlordiazePOXIDE HCL 25 MG CAPSULE PO SCH ×2 (16:40→22:32)
[2022-01-15] MEDS: hydrOXYzine PAMOATE 25 MG CAPSULE (FP) PO PRN (17:51)
[2022-01-15] MEDS: LISINOPRIL 10 MG TABLET PO SCH (17:51)
[2022-01-15] MEDS: chlordiazePOXIDE HCL 25 MG CAPSULE PO PRN (17:52)
[2022-01-15] MEDS: metoPROLOL SUCCINATE 25 MG TAB.SR.24H (FP) PO SCH (18:25)
[2022-01-15] MEDS: NICOTINE POLACRILEX 2 MG GUM BUC PRN ×2 (18:29→21:53)
[2022-01-15] MEDS: NICOTINE 10 MG CARTRIDGE (INHALER) IH PRN ×2 (19:34→22:40)
[2022-01-15] MEDS: THIAMINE HCL 100 MG TABLET (FP) PO SCH (22:31)
[2022-01-15] MEDS: MELATONIN 5 MG TABLETS PO SCH (22:31)
[2022-01-15] MEDS: METHOCARBAMOL 500 MG TABLET PO PRN (22:31)
[2022-01-16] MEDS: chlordiazePOXIDE HCL 25 MG CAPSULE PO SCH ×4 (05:47→22:32)
[2022-01-16] MEDS: NICOTINE 10 MG CARTRIDGE (INHALER) IH PRN ×3 (07:55→21:38)
[2022-01-16] MEDS: METHOCARBAMOL 500 MG TABLET PO PRN ×2 (10:10→17:52)
[2022-01-16] MEDS: LISINOPRIL 10 MG TABLET PO SCH (10:10)
[2022-01-16] MEDS: hydrOXYzine PAMOATE 25 MG CAPSULE (FP) PO PRN ×3 (10:11→22:33)
[2022-01-16] MEDS: PRENATAL VITAMINS W/ FOLIC ACID TABLET (FP) PO SCH (10:13)
[2022-01-16] MEDS: metoPROLOL SUCCINATE 25 MG TAB.SR.24H (FP) PO SCH (12:20)
[2022-01-16] MEDS: NICOTINE POLACRILEX 2 MG GUM BUC PRN ×4 (12:34→22:36)
[2022-01-16] MEDS: chlordiazePOXIDE HCL 25 MG CAPSULE PO PRN ×2 (13:02→19:27)
[2022-01-16 14:17] LABS: HEMATOCRIT 33.6 % (32.4-45.2); MCH 29.7 pg (25.7-33.7); MCHC 32.7 g/dl (32.0-36.0); MEAN CELL VOLUME 90.9 fl (80-96); PLATELET COUNT 80 10^3/uL (134-434); RDW 20.9 % (11.6-15.6); WHITE BLOOD COUNT 2.3 K/mm3 (4.0-10.0)
[2022-01-16 14:33] LABS: CALCIUM 9.4 mg/dL (8.5-10.1)
[2022-01-16 14:34] LABS: ALBUMIN 4.1 g/dl (3.4-5.0); BLOOD UREA NITROGEN 7.1 mg/dL (7-18)
[2022-01-16 14:37] LABS: CREATININE 0.7 mg/dL (0.55-1.3)
[2022-01-16 14:38] LABS: TOT PROT 7.9 g/dl (6.4-8.2)
[2022-01-16 14:44] LABS: BILIRUBIN,TOTAL 0.7 mg/dL (0.2-1)
[2022-01-16] MEDS: ONDANSETRON *ODT* 4 MG TABLET SL PRN (15:28)
[2022-01-16] MEDS: MELATONIN 5 MG TABLETS PO SCH (22:32)
[2022-01-16] MEDS: traZODone HCL 100 MG TABLET (FP) PO SCH (22:32)
[2022-01-16] MEDS: THIAMINE HCL 100 MG TABLET (FP) PO SCH (22:32)
[2022-01-17] MEDS: chlordiazePOXIDE HCL 25 MG CAPSULE PO SCH ×4 (06:45→22:51)
[2022-01-17] MEDS: NICOTINE 10 MG CARTRIDGE (INHALER) IH PRN ×4 (06:47→22:51)
[2022-01-17] MEDS: LISINOPRIL 10 MG TABLET PO SCH (10:09)
[2022-01-17] MEDS: PRENATAL VITAMINS W/ FOLIC ACID TABLET (FP) PO SCH (10:09)
[2022-01-17] MEDS: NICOTINE POLACRILEX 2 MG GUM BUC PRN ×3 (11:09→19:14)
[2022-01-17] MEDS: hydrOXYzine PAMOATE 25 MG CAPSULE (FP) PO PRN ×2 (17:26→22:51)
[2022-01-17] MEDS: MELATONIN 5 MG TABLETS PO SCH (22:50)
[2022-01-17] MEDS: traZODone HCL 100 MG TABLET (FP) PO SCH (22:50)
[2022-01-17] MEDS: THIAMINE HCL 100 MG TABLET (FP) PO SCH (22:50)
[2022-01-18] MEDS ORDERED: chlordiazePOXIDE HCL 10 MG CAPSULE PO PRN
[2022-01-18] MEDS: chlordiazePOXIDE HCL 10 MG CAPSULE PO SCH ×4 (06:03→23:55)
[2022-01-18] MEDS: NICOTINE 10 MG CARTRIDGE (INHALER) IH PRN ×4 (10:33→22:34)
[2022-01-18] MEDS ORDERED: LOPERAMIDE HCL 2 MG CAPSULE PO ONE (10:34)
[2022-01-18] MEDS: PRENATAL VITAMINS W/ FOLIC ACID TABLET (FP) PO SCH (10:34)
[2022-01-18] MEDS: LISINOPRIL 10 MG TABLET PO SCH (10:35)
[2022-01-18] MEDS: NICOTINE POLACRILEX 2 MG GUM BUC PRN ×3 (10:38→17:52)
[2022-01-18] MEDS: hydrOXYzine PAMOATE 25 MG CAPSULE (FP) PO PRN (14:34)
[2022-01-18] MEDS: METHOCARBAMOL 500 MG TABLET PO PRN (14:34)
[2022-01-18] MEDS: THIAMINE HCL 100 MG TABLET (FP) PO SCH (23:55)
[2022-01-18] MEDS: traZODone HCL 100 MG TABLET (FP) PO SCH (23:55)
[2022-01-18] MEDS: MELATONIN 5 MG TABLETS PO SCH (23:55)
[2022-01-19] MEDS: ONDANSETRON *ODT* 4 MG TABLET SL PRN (01:15)
[2022-01-19] MEDS: NICOTINE 10 MG CARTRIDGE (INHALER) IH PRN ×5 (06:02→23:09)
[2022-01-19] MEDS: chlordiazePOXIDE HCL 10 MG CAPSULE PO SCH ×2 (06:04→17:02)
[2022-01-19] MEDS: hydrOXYzine PAMOATE 25 MG CAPSULE (FP) PO PRN ×2 (09:07→17:04)
[2022-01-19] MEDS: METHOCARBAMOL 500 MG TABLET PO PRN ×2 (09:07→23:06)
[2022-01-19] MEDS: NICOTINE POLACRILEX 2 MG GUM BUC PRN ×4 (09:08→23:08)
[2022-01-19] MEDS: PRENATAL VITAMINS W/ FOLIC ACID TABLET (FP) PO SCH (10:19)
[2022-01-19] MEDS: LISINOPRIL 10 MG TABLET PO SCH (10:22)
[2022-01-19] MEDS ORDERED: chlordiazePOXIDE 5 MG CAPSULE PO PRN (14:17)
[2022-01-19] MEDS ORDERED: traZODone HCL 50 MG TABLET (FP) PO SCH (22:00)
[2022-01-19] MEDS: THIAMINE HCL 100 MG TABLET (FP) PO SCH (23:07)
[2022-01-19] MEDS: MELATONIN 5 MG TABLETS PO SCH (23:07)
[2022-01-20] MEDS ORDERED: chlordiazePOXIDE HCL 10 MG CAPSULE PO ONE (05:00)
[2022-01-20] MEDS: NICOTINE 10 MG CARTRIDGE (INHALER) IH PRN ×2 (09:17→13:23)
[2022-01-20] MEDS: METHOCARBAMOL 500 MG TABLET PO PRN (10:11)
[2022-01-20] MEDS: hydrOXYzine PAMOATE 25 MG CAPSULE (FP) PO PRN ×2 (10:11→13:12)
[2022-01-20] MEDS: NICOTINE POLACRILEX 2 MG GUM BUC PRN ×2 (10:14→13:29)
[2022-01-20] MEDS: PRENATAL VITAMINS W/ FOLIC ACID TABLET (FP) PO SCH (11:14)
[2022-01-20] MEDS: LISINOPRIL 10 MG TABLET PO SCH (11:15)
[2022-01-20 13:30] VITALS: BP 97/61; PULSE 72; TEMP 98.1
== END 2022-01-20 13:34 | disposition other institution (70) | DRG 775 ==
LOC: YASAS 14:42 → Y3N 17:06 → Y6N 17:13
PROVIDERS: ADMIT Allergy & Immunology; ATTEND Surgery
PROC: HZ2ZZZZ Detoxification Services for Substance Abuse Treatment (ICD-10-PCS; principal; 2022-01-15)
DX: F10.230 Alcohol dependence with withdrawal, uncomplicated (principal); F12.20 Cannabis dependence, uncomplicated; F17.210 Nicotine dependence, cigarettes, uncomplicated; F41.9 Anxiety disorder, unspecified; F33.9 Major depressive disorder, recurrent, unspecified; D72.810 Lymphocytopenia; I48.91 Unspecified atrial fibrillation; I10 Essential (primary) hypertension; K21.9 Gastro-esophageal reflux disease without esophagitis; E03.9 Hypothyroidism, unspecified; Z62.810 Personal history of physical and sexual abuse in childhood; Z87.11 Personal history of peptic ulcer disease; Z91.011 Allergy to milk products
CPT/HCPCS: 36415; 80053; 81025; 85027; 86780; C9803-CS; Q0162; U0003; U0005

== ENCOUNTER 2022-01-20 15:14 | Inpatient (IN) | payer OTHER ==
[2022-01-20] MEDS ORDERED: MAGNESIUM HYDROX 2400MG/30ML ORAL SUSPENSION 30 ML CUP PO PRN (15:30)
[2022-01-20] MEDS ORDERED: BENZOCAINE/MENTHOL (CHLORASEPTIC ) LOZENGE MM PRN (15:30)
[2022-01-20] MEDS ORDERED: guaiFENesin 200 MG/10 ML 10 ML UNIT-DOSE CUPS PO PRN (15:30)
[2022-01-20] MEDS ORDERED: MAGNESIUM CITRATE 300 ML BOTTLE PO PRN (15:30)
[2022-01-20] MEDS ORDERED: LOPERAMIDE HCL 2 MG CAPSULE PO PRN (15:30)
[2022-01-20] MEDS ORDERED: MAG HYDROX/AL HYDROX/SIMETH 30 ML UNIT-DOSE CUP PO PRN (15:30)
[2022-01-20] MEDS ORDERED: P-EPHED 60MG/TRIPROLIDI 2.5MG TABLET PO PRN (15:30)
[2022-01-20] MEDS: NICOTINE 10 MG CARTRIDGE (INHALER) IH PRN (21:38)
[2022-01-20] MEDS: THIAMINE HCL 100 MG TABLET (FP) PO SCH (22:39)
[2022-01-20] MEDS: traZODone HCL 100 MG TABLET (FP) PO SCH (22:40)
[2022-01-20] MEDS: MELATONIN 5 MG TABLETS PO SCH (22:41)
[2022-01-20] MEDS: hydrOXYzine PAMOATE 25 MG CAPSULE (FP) PO PRN (22:42)
[2022-01-20] MEDS: NICOTINE POLACRILEX 4 MG GUM BUC PRN (22:48)
[2022-01-21] MEDS: NICOTINE 10 MG CARTRIDGE (INHALER) IH PRN ×4 (05:56→19:52)
[2022-01-21] MEDS ORDERED: NICOTINE 7 MG/24 HOURS TOPICAL PATCH TD SCH (10:00)
[2022-01-21] MEDS: metoPROLOL SUCCINATE 25 MG TAB.SR.24H (FP) PO SCH (10:13)
[2022-01-21] MEDS: PRENATAL VITAMINS W/ FOLIC ACID TABLET (FP) PO SCH (10:13)
[2022-01-21] MEDS: LISINOPRIL 10 MG TABLET PO SCH (10:14)
[2022-01-21] MEDS: hydrOXYzine PAMOATE 25 MG CAPSULE (FP) PO PRN ×2 (10:15→20:40)
[2022-01-21] MEDS: METHOCARBAMOL 500 MG TABLET PO PRN (10:16)
[2022-01-21] MEDS: NICOTINE POLACRILEX 4 MG GUM BUC PRN (10:17)
[2022-01-21 12:32] LABS: HIV INTERPRETATION NEGATIVE (NEGATIVE)
[2022-01-21] MEDS: traZODone HCL 100 MG TABLET (FP) PO SCH (23:13)
[2022-01-21] MEDS: THIAMINE HCL 100 MG TABLET (FP) PO SCH (23:14)
[2022-01-21] MEDS: MELATONIN 5 MG TABLETS PO SCH (23:15)
[2022-01-22] MEDS: hydrOXYzine PAMOATE 25 MG CAPSULE (FP) PO PRN ×3 (06:44→21:49)
[2022-01-22] MEDS: NICOTINE 10 MG CARTRIDGE (INHALER) IH PRN ×4 (06:45→20:12)
[2022-01-22] MEDS: NICOTINE POLACRILEX 4 MG GUM BUC PRN ×2 (06:45→14:09)
[2022-01-22] MEDS: LISINOPRIL 10 MG TABLET PO SCH (09:40)
[2022-01-22] MEDS: PRENATAL VITAMINS W/ FOLIC ACID TABLET (FP) PO SCH (09:40)
[2022-01-22] MEDS: metoPROLOL SUCCINATE 25 MG TAB.SR.24H (FP) PO SCH (09:43)
[2022-01-22] MEDS: METHOCARBAMOL 500 MG TABLET PO PRN ×3 (09:43→21:47)
[2022-01-22] MEDS: COLLOIDAL OATMEAL 1 BAR EACH TP PRN (09:44)
[2022-01-22] MEDS: ACETAMINOPHEN 325 MG TABLET (FP) PO PRN (14:07)
[2022-01-22] MEDS: traZODone HCL 100 MG TABLET (FP) PO SCH (21:48)
[2022-01-22] MEDS: THIAMINE HCL 100 MG TABLET (FP) PO SCH (21:49)
[2022-01-22] MEDS: MELATONIN 5 MG TABLETS PO SCH (21:53)
[2022-01-23] MEDS: NICOTINE 10 MG CARTRIDGE (INHALER) IH PRN ×4 (06:05→21:30)
[2022-01-23] MEDS: hydrOXYzine PAMOATE 25 MG CAPSULE (FP) PO PRN ×4 (06:07→21:32)
[2022-01-23] MEDS: METHOCARBAMOL 500 MG TABLET PO PRN ×3 (06:07→21:34)
[2022-01-23] MEDS: NICOTINE POLACRILEX 4 MG GUM BUC PRN ×2 (06:07→10:12)
[2022-01-23] MEDS: LISINOPRIL 10 MG TABLET PO SCH (10:09)
[2022-01-23] MEDS: PRENATAL VITAMINS W/ FOLIC ACID TABLET (FP) PO SCH (10:09)
[2022-01-23] MEDS: metoPROLOL SUCCINATE 25 MG TAB.SR.24H (FP) PO SCH (10:10)
[2022-01-23] MEDS: THIAMINE HCL 100 MG TABLET (FP) PO SCH (21:30)
[2022-01-23] MEDS: MELATONIN 5 MG TABLETS PO SCH (21:30)
[2022-01-23] MEDS: traZODone HCL 50 MG TABLET (FP) PO SCH (21:34)
[2022-01-24] MEDS: NICOTINE 10 MG CARTRIDGE (INHALER) IH PRN ×4 (06:23→20:19)
[2022-01-24] MEDS: hydrOXYzine PAMOATE 25 MG CAPSULE (FP) PO PRN ×3 (06:25→21:46)
[2022-01-24] MEDS: METHOCARBAMOL 500 MG TABLET PO PRN ×2 (06:25→21:47)
[2022-01-24] MEDS: metoPROLOL SUCCINATE 25 MG TAB.SR.24H (FP) PO SCH (10:57)
[2022-01-24] MEDS: LISINOPRIL 10 MG TABLET PO SCH (10:58)
[2022-01-24] MEDS: PRENATAL VITAMINS W/ FOLIC ACID TABLET (FP) PO SCH (10:58)
[2022-01-24] MEDS: traZODone HCL 50 MG TABLET (FP) PO SCH (21:45)
[2022-01-24] MEDS: THIAMINE HCL 100 MG TABLET (FP) PO SCH (21:45)
[2022-01-24] MEDS: MELATONIN 5 MG TABLETS PO SCH (21:45)
[2022-01-24] MEDS: NICOTINE POLACRILEX 4 MG GUM BUC PRN (21:58)
[2022-01-24] MEDS: IBUPROFEN 400 MG TABLET (FP) PO PRN (21:59)
[2022-01-25] MEDS: NICOTINE 10 MG CARTRIDGE (INHALER) IH PRN ×4 (07:28→21:50)
[2022-01-25] MEDS: hydrOXYzine PAMOATE 25 MG CAPSULE (FP) PO PRN ×4 (07:34→21:49)
[2022-01-25] MEDS: METHOCARBAMOL 500 MG TABLET PO PRN ×2 (07:34→21:48)
[2022-01-25] MEDS: PRENATAL VITAMINS W/ FOLIC ACID TABLET (FP) PO SCH (10:39)
[2022-01-25] MEDS: LISINOPRIL 10 MG TABLET PO SCH (13:59)
[2022-01-25] MEDS: NICOTINE POLACRILEX 4 MG GUM BUC PRN ×3 (14:00→21:51)
[2022-01-25] MEDS: metoPROLOL SUCCINATE 25 MG TAB.SR.24H (FP) PO SCH (14:00)
[2022-01-25] MEDS: traZODone HCL 50 MG TABLET (FP) PO SCH (21:48)
[2022-01-25] MEDS: THIAMINE HCL 100 MG TABLET (FP) PO SCH (21:48)
[2022-01-25] MEDS: MELATONIN 5 MG TABLETS PO SCH (21:58)
[2022-01-26] MEDS: METHOCARBAMOL 500 MG TABLET PO PRN ×3 (05:45→21:46)
[2022-01-26] MEDS: hydrOXYzine PAMOATE 25 MG CAPSULE (FP) PO PRN ×4 (05:45→21:46)
[2022-01-26] MEDS: NICOTINE 10 MG CARTRIDGE (INHALER) IH PRN ×4 (05:46→21:49)
[2022-01-26] MEDS: PRENATAL VITAMINS W/ FOLIC ACID TABLET (FP) PO SCH (10:24)
[2022-01-26] MEDS: metoPROLOL SUCCINATE 25 MG TAB.SR.24H (FP) PO SCH (10:25)
[2022-01-26] MEDS: LISINOPRIL 10 MG TABLET PO SCH (10:25)
[2022-01-26] MEDS: NICOTINE POLACRILEX 4 MG GUM BUC PRN ×3 (10:26→21:51)
[2022-01-26] MEDS: IBUPROFEN 400 MG TABLET (FP) PO PRN (16:08)
[2022-01-26] MEDS: THIAMINE HCL 100 MG TABLET (FP) PO SCH (21:46)
[2022-01-26] MEDS: traZODone HCL 50 MG TABLET (FP) PO SCH (21:46)
[2022-01-26] MEDS: MELATONIN 5 MG TABLETS PO SCH (21:47)
[2022-01-27] MEDS: NICOTINE 10 MG CARTRIDGE (INHALER) IH PRN ×4 (06:06→21:35)
[2022-01-27] MEDS: METHOCARBAMOL 500 MG TABLET PO PRN ×2 (06:08→21:35)
[2022-01-27] MEDS: hydrOXYzine PAMOATE 25 MG CAPSULE (FP) PO PRN ×4 (06:08→21:35)
[2022-01-27] MEDS: metoPROLOL SUCCINATE 25 MG TAB.SR.24H (FP) PO SCH (10:25)
[2022-01-27] MEDS: NICOTINE POLACRILEX 4 MG GUM BUC PRN ×2 (10:33→17:02)
[2022-01-27] MEDS: PRENATAL VITAMINS W/ FOLIC ACID TABLET (FP) PO SCH (11:11)
[2022-01-27] MEDS: LISINOPRIL 10 MG TABLET PO SCH (11:12)
[2022-01-27] MEDS: ACETAMINOPHEN 325 MG TABLET (FP) PO PRN (18:23)
[2022-01-27] MEDS: THIAMINE HCL 100 MG TABLET (FP) PO SCH (21:35)
[2022-01-27] MEDS: MELATONIN 5 MG TABLETS PO SCH (21:35)
[2022-01-27] MEDS: traZODone HCL 50 MG TABLET (FP) PO SCH (21:35)
[2022-01-28] MEDS: NICOTINE 10 MG CARTRIDGE (INHALER) IH PRN ×4 (06:23→21:32)
[2022-01-28] MEDS: PRENATAL VITAMINS W/ FOLIC ACID TABLET (FP) PO SCH (10:24)
[2022-01-28] MEDS: LISINOPRIL 10 MG TABLET PO SCH (10:25)
[2022-01-28] MEDS: metoPROLOL SUCCINATE 25 MG TAB.SR.24H (FP) PO SCH (10:25)
[2022-01-28] MEDS: NICOTINE POLACRILEX 4 MG GUM BUC PRN ×2 (10:26→19:40)
[2022-01-28] MEDS: hydrOXYzine PAMOATE 25 MG CAPSULE (FP) PO PRN ×2 (10:26→21:30)
[2022-01-28] MEDS: METHOCARBAMOL 500 MG TABLET PO PRN (21:30)
[2022-01-28] MEDS: THIAMINE HCL 100 MG TABLET (FP) PO SCH (21:30)
[2022-01-28] MEDS: traZODone HCL 50 MG TABLET (FP) PO SCH (21:30)
[2022-01-28] MEDS: MELATONIN 5 MG TABLETS PO SCH (21:31)
[2022-01-29] MEDS: NICOTINE 10 MG CARTRIDGE (INHALER) IH PRN ×4 (06:27→19:41)
[2022-01-29] MEDS: COLLOIDAL OATMEAL 1 BAR EACH TP PRN (06:40)
[2022-01-29] MEDS: PRENATAL VITAMINS W/ FOLIC ACID TABLET (FP) PO SCH (10:29)
[2022-01-29] MEDS: LISINOPRIL 10 MG TABLET PO SCH (10:30)
[2022-01-29] MEDS: hydrOXYzine PAMOATE 25 MG CAPSULE (FP) PO PRN ×2 (10:30→21:43)
[2022-01-29] MEDS: metoPROLOL SUCCINATE 25 MG TAB.SR.24H (FP) PO SCH (10:30)
[2022-01-29] MEDS: METHOCARBAMOL 500 MG TABLET PO PRN ×2 (10:30→21:43)
[2022-01-29] MEDS: NICOTINE POLACRILEX 4 MG GUM BUC PRN (17:25)
[2022-01-29] MEDS: traZODone HCL 100 MG TABLET (FP) PO SCH (21:42)
[2022-01-29] MEDS: THIAMINE HCL 100 MG TABLET (FP) PO SCH (21:43)
[2022-01-30] MEDS: hydrOXYzine PAMOATE 25 MG CAPSULE (FP) PO PRN ×3 (02:22→21:40)
[2022-01-30] MEDS: NICOTINE 10 MG CARTRIDGE (INHALER) IH PRN ×4 (02:22→21:39)
[2022-01-30] MEDS: metoPROLOL SUCCINATE 25 MG TAB.SR.24H (FP) PO SCH (10:11)
[2022-01-30] MEDS: LISINOPRIL 10 MG TABLET PO SCH (10:12)
[2022-01-30] MEDS: PRENATAL VITAMINS W/ FOLIC ACID TABLET (FP) PO SCH (10:12)
[2022-01-30] MEDS: METHOCARBAMOL 500 MG TABLET PO PRN ×2 (10:13→21:40)
[2022-01-30] MEDS: traZODone HCL 100 MG TABLET (FP) PO SCH (21:40)
[2022-01-30] MEDS: THIAMINE HCL 100 MG TABLET (FP) PO SCH (21:40)
[2022-01-30] MEDS: NICOTINE POLACRILEX 4 MG GUM BUC PRN (21:51)
[2022-01-31] MEDS: NICOTINE POLACRILEX 4 MG GUM BUC PRN ×2 (06:05→11:01)
[2022-01-31] MEDS: PRENATAL VITAMINS W/ FOLIC ACID TABLET (FP) PO SCH (10:57)
[2022-01-31] MEDS: LISINOPRIL 10 MG TABLET PO SCH (10:58)
[2022-01-31] MEDS: metoPROLOL SUCCINATE 25 MG TAB.SR.24H (FP) PO SCH (10:59)
[2022-01-31] MEDS: hydrOXYzine PAMOATE 25 MG CAPSULE (FP) PO PRN ×2 (11:00→21:40)
[2022-01-31] MEDS: NICOTINE 10 MG CARTRIDGE (INHALER) IH PRN ×2 (11:02→20:09)
[2022-01-31] MEDS: THIAMINE HCL 100 MG TABLET (FP) PO SCH (21:40)
[2022-01-31] MEDS: traZODone HCL 100 MG TABLET (FP) PO SCH (21:40)
[2022-01-31] MEDS: METHOCARBAMOL 500 MG TABLET PO PRN (21:41)
[2022-02-01] MEDS: NICOTINE 10 MG CARTRIDGE (INHALER) IH PRN ×3 (06:36→21:53)
[2022-02-01] MEDS: PRENATAL VITAMINS W/ FOLIC ACID TABLET (FP) PO SCH (10:12)
[2022-02-01] MEDS: LISINOPRIL 10 MG TABLET PO SCH (10:12)
[2022-02-01] MEDS: metoPROLOL SUCCINATE 25 MG TAB.SR.24H (FP) PO SCH (10:13)
[2022-02-01] MEDS: NICOTINE POLACRILEX 4 MG GUM BUC PRN (10:13)
[2022-02-01] MEDS: hydrOXYzine PAMOATE 25 MG CAPSULE (FP) PO PRN ×2 (10:14→21:52)
[2022-02-01] MEDS: traZODone HCL 100 MG TABLET (FP) PO SCH (21:51)
[2022-02-01] MEDS: THIAMINE HCL 100 MG TABLET (FP) PO SCH (21:52)
[2022-02-02] MEDS: NICOTINE 10 MG CARTRIDGE (INHALER) IH PRN ×4 (06:11→21:33)
[2022-02-02 08:03] VITALS: RESP 18
[2022-02-02] MEDS: PRENATAL VITAMINS W/ FOLIC ACID TABLET (FP) PO SCH (10:24)
[2022-02-02] MEDS ORDERED: NICOTINE POLACRILEX 4 MG GUM BUC ONE (10:25)
[2022-02-02] MEDS: hydrOXYzine PAMOATE 25 MG CAPSULE (FP) PO PRN ×2 (10:26→21:32)
[2022-02-02] MEDS: METHOCARBAMOL 500 MG TABLET PO PRN ×2 (10:26→21:32)
[2022-02-02] MEDS: NICOTINE POLACRILEX 4 MG GUM BUC PRN ×2 (10:28→21:33)
[2022-02-02] MEDS: LISINOPRIL 10 MG TABLET PO SCH (14:11)
[2022-02-02] MEDS: metoPROLOL SUCCINATE 25 MG TAB.SR.24H (FP) PO SCH (14:19)
[2022-02-02] MEDS: traZODone HCL 100 MG TABLET (FP) PO SCH (21:32)
[2022-02-02] MEDS: THIAMINE HCL 100 MG TABLET (FP) PO SCH (23:08)
[2022-02-03] MEDS: NICOTINE 10 MG CARTRIDGE (INHALER) IH PRN ×2 (01:20→09:07)
[2022-02-03 07:21] VITALS: BP 102/63; PULSE 81; TEMP 97.3
[2022-02-03] MEDS: PRENATAL VITAMINS W/ FOLIC ACID TABLET (FP) PO SCH (09:07)
[2022-02-03] MEDS: NICOTINE POLACRILEX 4 MG GUM BUC PRN (09:08)
[2022-02-03] MEDS: LISINOPRIL 10 MG TABLET PO SCH (09:08)
== END 2022-02-03 09:15 | disposition home or self-care (01) | DRG 772 ==
LOC: YASAS 15:14 → Y5N 15:16
PROVIDERS: ADMIT Allergy & Immunology; ATTEND Psychiatry & Neurology Pain Medicine
PROC: HZ42ZZZ Group Counseling for Substance Abuse Treatment, Cognitive-Behavioral (ICD-10-PCS; principal; 2022-01-20)
DX: F10.20 Alcohol dependence, uncomplicated (principal); F12.20 Cannabis dependence, uncomplicated; F17.210 Nicotine dependence, cigarettes, uncomplicated; F32.9 Major depressive disorder, single episode, unspecified; F41.9 Anxiety disorder, unspecified; F43.10 Post-traumatic stress disorder, unspecified; F90.9 Attention-deficit hyperactivity disorder, unspecified type; D72.819 Decreased white blood cell count, unspecified; I10 Essential (primary) hypertension; K21.9 Gastro-esophageal reflux disease without esophagitis; Z62.810 Personal history of physical and sexual abuse in childhood; Z87.11 Personal history of peptic ulcer disease; Z91.011 Allergy to milk products
CPT/HCPCS: 36415; 87389; 93005; 93010

== ENCOUNTER 2022-04-05 20:26 | Inpatient (IN) | payer OTHER ==
[2022-04-05 21:01] VITALS: BMI 22.2
[2022-04-05] MEDS ORDERED: BENZOCAINE/MENTHOL (CHLORASEPTIC ) LOZENGE MM PRN (22:09)
[2022-04-05] MEDS ORDERED: DICYCLOMINE HCL 10 MG CAPSULE PO PRN (22:09)
[2022-04-05] MEDS ORDERED: ONDANSETRON *ODT* 4 MG TABLET SL PRN (22:09)
[2022-04-05] MEDS ORDERED: LOPERAMIDE HCL 2 MG CAPSULE PO PRN (22:09)
[2022-04-05] MEDS ORDERED: ACETAMINOPHEN 325 MG TABLET (FP) PO PRN ×2 (22:09)
[2022-04-05] MEDS ORDERED: IBUPROFEN 600 MG TABLET (FP) PO PRN (22:09)
[2022-04-05] MEDS ORDERED: MAGNESIUM CITRATE 300 ML BOTTLE PO PRN (22:09)
[2022-04-05] MEDS ORDERED: MAG HYDROX/AL HYDROX/SIMETH 30 ML UNIT-DOSE CUP PO PRN (22:09)
[2022-04-05] MEDS ORDERED: MAGNESIUM HYDROX 2400MG/30ML ORAL SUSPENSION 30 ML CUP PO PRN (22:09)
[2022-04-05] MEDS ORDERED: NALOXONE HCL (KLOXXADO) 8 MG SPRAY NS PRN (22:09)
[2022-04-05] MEDS ORDERED: IBUPROFEN 400 MG TABLET (FP) PO PRN (22:09)
[2022-04-05] MEDS: chlordiazePOXIDE HCL 25 MG CAPSULE PO SCH (22:39)
[2022-04-05] MEDS: NICOTINE 10 MG CARTRIDGE (INHALER) IH PRN (23:04)
[2022-04-05] MEDS: NICOTINE POLACRILEX 2 MG GUM BUC PRN (23:18)
[2022-04-06] MEDS ORDERED: hydrOXYzine PAMOATE 25 MG CAPSULE (FP) PO ONE (00:54)
[2022-04-06] MEDS ORDERED: MELATONIN 5 MG TABLETS PO ONE ×2 (00:54)
[2022-04-06] MEDS: chlordiazePOXIDE HCL 25 MG CAPSULE PO SCH ×4 (05:39→22:03)
[2022-04-06] MEDS: LISINOPRIL 10 MG TABLET PO SCH (10:45)
[2022-04-06] MEDS: PRENATAL VITAMINS W/ FOLIC ACID TABLET (FP) PO SCH (10:48)
[2022-04-06 11:16] LABS: CALCIUM 8.8 mg/dL (8.5-10.1)
[2022-04-06 11:17] LABS: ALBUMIN 3.6 g/dl (3.4-5.0); BLOOD UREA NITROGEN 8.1 mg/dL (7-18)
[2022-04-06 11:18] LABS: HEMATOCRIT 29.8 % (32.4-45.2); HEMOGLOBIN 9.9 GM/dL (10.7-15.3); MCH 28.8 pg (25.7-33.7); MEAN CELL VOLUME 87.1 fl (80-96); MEAN PLT VOLUME 7.5 fl (7.5-11.1); PLATELET COUNT 111 10^3/uL (134-434); RBC 3.43 M/mm3 (3.60-5.2); RDW 23.1 % (11.6-15.6); WHITE BLOOD COUNT 2.2 K/mm3 (4.0-10.0)
[2022-04-06 11:20] LABS: CREATININE 0.6 mg/dL (0.55-1.3)
[2022-04-06 11:22] LABS: BILIRUBIN,TOTAL 0.4 mg/dL (0.2-1); TOT PROT 7.5 g/dl (6.4-8.2)
[2022-04-06] MEDS: NICOTINE POLACRILEX 2 MG GUM BUC PRN (12:53)
[2022-04-06] MEDS ORDERED: METHOCARBAMOL 500 MG TABLET PO ONE (13:02)
[2022-04-06] MEDS: chlordiazePOXIDE HCL 25 MG CAPSULE PO PRN ×2 (13:40→19:05)
[2022-04-06] MEDS: NICOTINE 10 MG CARTRIDGE (INHALER) IH PRN ×3 (13:42→22:05)
[2022-04-06] MEDS: SERTRALINE HCL 50 MG TABLET (FP) PO SCH (14:53)
[2022-04-06] MEDS: BISMUTH SUBSALICYLATE 524 MG/30 ML PO PRN (16:51)
[2022-04-06] MEDS: MELATONIN 5 MG TABLETS PO SCH (22:03)
[2022-04-06] MEDS: traZODone HCL 100 MG TABLET (FP) PO SCH (22:03)
[2022-04-06] MEDS: THIAMINE HCL 100 MG TABLET (FP) PO SCH (22:04)
[2022-04-07] MEDS: chlordiazePOXIDE HCL 25 MG CAPSULE PO SCH ×3 (05:26→17:15)
[2022-04-07] MEDS: SERTRALINE HCL 50 MG TABLET (FP) PO SCH (10:27)
[2022-04-07] MEDS: PRENATAL VITAMINS W/ FOLIC ACID TABLET (FP) PO SCH (10:27)
[2022-04-07] MEDS: METHOCARBAMOL 500 MG TABLET PO PRN ×2 (10:30→17:16)
[2022-04-07] MEDS: NICOTINE 10 MG CARTRIDGE (INHALER) IH PRN ×3 (10:31→21:36)
[2022-04-07] MEDS: LISINOPRIL 10 MG TABLET PO SCH (12:56)
[2022-04-07] MEDS: chlordiazePOXIDE HCL 25 MG CAPSULE PO PRN (20:03)
[2022-04-07] MEDS: MELATONIN 5 MG TABLETS PO SCH ×2 (21:34→22:42)
[2022-04-07] MEDS: traZODone HCL 100 MG TABLET (FP) PO SCH (21:34)
[2022-04-07] MEDS: THIAMINE HCL 100 MG TABLET (FP) PO SCH (21:35)
[2022-04-08] MEDS ORDERED: chlordiazePOXIDE HCL 10 MG CAPSULE PO PRN
[2022-04-08] MEDS: chlordiazePOXIDE HCL 25 MG CAPSULE PO SCH (00:08)
[2022-04-08] MEDS: chlordiazePOXIDE HCL 10 MG CAPSULE PO SCH ×4 (05:08→22:07)
[2022-04-08] MEDS: LISINOPRIL 10 MG TABLET PO SCH (10:10)
[2022-04-08] MEDS: PRENATAL VITAMINS W/ FOLIC ACID TABLET (FP) PO SCH (10:10)
[2022-04-08] MEDS: SERTRALINE HCL 50 MG TABLET (FP) PO SCH (10:11)
[2022-04-08] MEDS: NICOTINE 10 MG CARTRIDGE (INHALER) IH PRN ×3 (10:12→17:47)
[2022-04-08] MEDS: METHOCARBAMOL 500 MG TABLET PO PRN (15:03)
[2022-04-08] MEDS: NICOTINE POLACRILEX 2 MG GUM BUC PRN (20:03)
[2022-04-08] MEDS: THIAMINE HCL 100 MG TABLET (FP) PO SCH (22:04)
[2022-04-08] MEDS: traZODone HCL 100 MG TABLET (FP) PO SCH (22:04)
[2022-04-08] MEDS: MELATONIN 5 MG TABLETS PO SCH (22:07)
[2022-04-09] MEDS: chlordiazePOXIDE HCL 10 MG CAPSULE PO SCH ×2 (05:48→17:59)
[2022-04-09] MEDS: NICOTINE POLACRILEX 2 MG GUM BUC PRN ×2 (09:00→14:45)
[2022-04-09] MEDS: METHOCARBAMOL 500 MG TABLET PO PRN ×2 (09:00→17:59)
[2022-04-09] MEDS: NICOTINE 10 MG CARTRIDGE (INHALER) IH PRN ×3 (09:00→22:35)
[2022-04-09] MEDS: PRENATAL VITAMINS W/ FOLIC ACID TABLET (FP) PO SCH (10:00)
[2022-04-09] MEDS: SERTRALINE HCL 50 MG TABLET (FP) PO SCH (10:01)
[2022-04-09] MEDS: chlordiazePOXIDE HCL 10 MG CAPSULE PO PRN ×2 (10:03→22:31)
[2022-04-09] MEDS: LISINOPRIL 10 MG TABLET PO SCH (10:03)
[2022-04-09] MEDS: MELATONIN 5 MG TABLETS PO SCH (22:30)
[2022-04-09] MEDS: THIAMINE HCL 100 MG TABLET (FP) PO SCH (22:30)
[2022-04-09] MEDS: traZODone HCL 100 MG TABLET (FP) PO SCH (22:30)
[2022-04-10] MEDS ORDERED: chlordiazePOXIDE HCL 10 MG CAPSULE PO ONE (05:00)
[2022-04-10] MEDS: NICOTINE 10 MG CARTRIDGE (INHALER) IH PRN ×2 (05:48→11:30)
[2022-04-10] MEDS: BISMUTH SUBSALICYLATE 524 MG/30 ML PO PRN (06:35)
[2022-04-10 10:17] VITALS: BP 117/76; PULSE 110; RESP 20; TEMP 97.3
[2022-04-10] MEDS: PRENATAL VITAMINS W/ FOLIC ACID TABLET (FP) PO SCH (10:36)
[2022-04-10] MEDS: LISINOPRIL 10 MG TABLET PO SCH (10:36)
[2022-04-10] MEDS: METHOCARBAMOL 500 MG TABLET PO PRN (10:37)
[2022-04-10] MEDS: SERTRALINE HCL 50 MG TABLET (FP) PO SCH (10:39)
[2022-04-10] MEDS: NICOTINE POLACRILEX 2 MG GUM BUC PRN (11:32)
== END 2022-04-10 12:30 | disposition home or self-care (01) | DRG 775 ==
LOC: YASAS 20:26 → Y6N 22:02
PROVIDERS: ADMIT Allergy & Immunology; ATTEND Surgery
PROC: HZ2ZZZZ Detoxification Services for Substance Abuse Treatment (ICD-10-PCS; principal; 2022-04-05)
DX: F10.230 Alcohol dependence with withdrawal, uncomplicated (principal); F17.210 Nicotine dependence, cigarettes, uncomplicated; F31.9 Bipolar disorder, unspecified; F43.10 Post-traumatic stress disorder, unspecified; F41.9 Anxiety disorder, unspecified; D50.9 Iron deficiency anemia, unspecified; E03.9 Hypothyroidism, unspecified; I48.91 Unspecified atrial fibrillation; I10 Essential (primary) hypertension; K21.9 Gastro-esophageal reflux disease without esophagitis; Z62.810 Personal history of physical and sexual abuse in childhood; Z87.11 Personal history of peptic ulcer disease; Z91.011 Allergy to milk products
CPT/HCPCS: 36415; 80053; 81025; 85027; 86780; C9803-CS; U0003; U0005

== ENCOUNTER 2022-04-30 11:06 | Inpatient (IN) | payer OTHER ==
[2022-04-30 12:47] VITALS: BMI 20.9
[2022-04-30] MEDS ORDERED: IBUPROFEN 400 MG TABLET (FP) PO PRN (13:31)
[2022-04-30] MEDS ORDERED: ONDANSETRON *ODT* 4 MG TABLET SL PRN (13:31)
[2022-04-30] MEDS ORDERED: BISMUTH SUBSALICYLATE 262 MG/15 ML BTL PO PRN (13:31)
[2022-04-30] MEDS ORDERED: MAGNESIUM HYDROX 2400MG/30ML ORAL SUSPENSION 30 ML CUP PO PRN (13:31)
[2022-04-30] MEDS ORDERED: MAG HYDROX/AL HYDROX/SIMETH 30 ML UNIT-DOSE CUP PO PRN (13:31)
[2022-04-30] MEDS ORDERED: LOPERAMIDE HCL 2 MG CAPSULE PO PRN (13:31)
[2022-04-30] MEDS ORDERED: BENZOCAINE/MENTHOL (CHLORASEPTIC ) LOZENGE MM PRN (13:31)
[2022-04-30] MEDS ORDERED: IBUPROFEN 600 MG TABLET (FP) PO PRN (13:31)
[2022-04-30] MEDS ORDERED: ACETAMINOPHEN 325 MG TABLET (FP) PO PRN ×2 (13:31)
[2022-04-30] MEDS ORDERED: DICYCLOMINE HCL 10 MG CAPSULE PO PRN (13:31)
[2022-04-30] MEDS ORDERED: MAGNESIUM CITRATE 300 ML BOTTLE PO PRN (13:31)
[2022-04-30] MEDS ORDERED: NALOXONE HCL (KLOXXADO) 8 MG SPRAY NS PRN (13:31)
[2022-04-30] MEDS: diazePAM 5 MG TABLET PO PRN ×2 (14:09→21:33)
[2022-04-30] MEDS: NICOTINE 21 MG/24 HOURS TOPICAL PATCH TD SCH (14:47)
[2022-04-30] MEDS: PRENATAL VITAMINS W/ FOLIC ACID TABLET (FP) PO SCH (14:47)
[2022-04-30] MEDS: LISINOPRIL 10 MG TABLET PO SCH (14:47)
[2022-04-30] MEDS: NICOTINE 10 MG CARTRIDGE (INHALER) IH PRN (14:49)
[2022-04-30] MEDS: hydrOXYzine PAMOATE 25 MG CAPSULE (FP) PO PRN ×2 (17:07→22:33)
[2022-04-30] MEDS: METHOCARBAMOL 500 MG TABLET PO PRN (17:07)
[2022-04-30] MEDS: diazePAM 5 MG TABLET PO SCH ×2 (17:08→22:35)
[2022-04-30] MEDS: MELATONIN 5 MG TABLETS PO SCH (22:33)
[2022-04-30] MEDS: THIAMINE HCL 100 MG TABLET (FP) PO SCH (22:33)
[2022-04-30] MEDS: traZODone HCL 100 MG TABLET (FP) PO SCH (22:34)
[2022-05-01] MEDS: diazePAM 5 MG TABLET PO PRN (01:35)
[2022-05-01] MEDS: diazePAM 5 MG TABLET PO SCH (06:03)
[2022-05-01] MEDS: hydrOXYzine PAMOATE 25 MG CAPSULE (FP) PO PRN ×3 (06:03→22:21)
[2022-05-01] MEDS: METHOCARBAMOL 500 MG TABLET PO PRN ×3 (06:04→17:36)
[2022-05-01] MEDS ORDERED: COLLOIDAL OATMEAL 1 BAR EACH TP PRN (09:27)
[2022-05-01] MEDS ORDERED: chlordiazePOXIDE HCL 25 MG CAPSULE PO PRN (09:28)
[2022-05-01 09:56] LABS: HEMATOCRIT 34.9 % (32.4-45.2); HEMOGLOBIN 11.1 GM/dL (10.7-15.3); MCHC 31.8 g/dl (32.0-36.0); MEAN CELL VOLUME 88.1 fl (80-96); MEAN PLT VOLUME 8.7 fl (7.5-11.1); RBC 3.96 M/mm3 (3.60-5.2); RDW 23.7 % (11.6-15.6)
[2022-05-01 10:03] LABS: PLATELET COUNT 36 10^3/uL (134-434); WHITE BLOOD COUNT 1.2 K/mm3 (4.0-10.0)
[2022-05-01 10:12] LABS: ALBUMIN 4.6 g/dl (3.4-5.0); BLOOD UREA NITROGEN 8.5 mg/dL (7-18); CALCIUM 9.9 mg/dL (8.5-10.1)
[2022-05-01 10:15] LABS: CREATININE 0.7 mg/dL (0.55-1.3)
[2022-05-01 10:16] LABS: BILIRUBIN,TOTAL 1.1 mg/dL (0.2-1); TOT PROT 8.4 g/dl (6.4-8.2)
[2022-05-01] MEDS: NICOTINE 21 MG/24 HOURS TOPICAL PATCH TD SCH (10:25)
[2022-05-01] MEDS: PRENATAL VITAMINS W/ FOLIC ACID TABLET (FP) PO SCH (10:25)
[2022-05-01] MEDS: LISINOPRIL 10 MG TABLET PO SCH (10:26)
[2022-05-01] MEDS: chlordiazePOXIDE HCL 25 MG CAPSULE PO SCH ×3 (10:27→22:22)
[2022-05-01] MEDS ORDERED: FLU VACC QS2022-23(6MOS UP)/PF 60 MCG/0.5 ML SYRINGE IM ONE (12:00)
[2022-05-01 12:29] LABS: HIV INTERPRETATION NEGATIVE (NEGATIVE)
[2022-05-01] MEDS: NICOTINE 10 MG CARTRIDGE (INHALER) IH PRN ×2 (12:44→17:38)
[2022-05-01] MEDS: FOLIC ACID 1 MG TABLET (FP) PO SCH (15:55)
[2022-05-01] MEDS: traZODone HCL 100 MG TABLET (FP) PO SCH (22:21)
[2022-05-01] MEDS: MELATONIN 5 MG TABLETS PO SCH (22:21)
[2022-05-01] MEDS: THIAMINE HCL 100 MG TABLET (FP) PO SCH (22:21)
[2022-05-02] MEDS: METHOCARBAMOL 500 MG TABLET PO PRN ×3 (03:40→19:04)
[2022-05-02] MEDS: chlordiazePOXIDE HCL 25 MG CAPSULE PO SCH ×4 (05:39→22:21)
[2022-05-02] MEDS ORDERED: diazePAM 5 MG TABLET PO SCH (06:00)
[2022-05-02] MEDS: PRENATAL VITAMINS W/ FOLIC ACID TABLET (FP) PO SCH (10:05)
[2022-05-02] MEDS: FOLIC ACID 1 MG TABLET (FP) PO SCH (10:05)
[2022-05-02] MEDS: LISINOPRIL 10 MG TABLET PO SCH (10:05)
[2022-05-02] MEDS: NICOTINE 10 MG CARTRIDGE (INHALER) IH PRN ×4 (10:08→22:21)
[2022-05-02] MEDS: NICOTINE 21 MG/24 HOURS TOPICAL PATCH TD SCH (11:25)
[2022-05-02 11:49] LABS: EPI CELLS >36 /uL (0-25.1); HYALINE CASTS 4 /uL (0-3.1); URINE APPEARANCE CLOUDY; URINE BACTERIA 1197 /uL (0-1359); URINE BILIRUBIN NEGATIVE (NEGATIVE); URINE COLOR YELLOW; URINE GLUCOSE (UA) NEGATIVE (NEGATIVE); URINE KETONE TRACE (NEGATIVE); URINE LEUK ESTERASE TRACE (NEGATIVE); URINE NITRITE NEGATIVE (NEGATIVE); URINE PROTEIN NEGATIVE (NEGATIVE); URINE RBC 15 /uL (0-23.9); URINE UROBILINOGEN 0.2 mg/dL (0.2-1.0); URINE WBC 25 /uL (0-25.8)
[2022-05-02] MEDS: hydrOXYzine PAMOATE 25 MG CAPSULE (FP) PO PRN (13:21)
[2022-05-02] MEDS: MELATONIN 5 MG TABLETS PO SCH (22:20)
[2022-05-02] MEDS: THIAMINE HCL 100 MG TABLET (FP) PO SCH (22:20)
[2022-05-02] MEDS: traZODone HCL 100 MG TABLET (FP) PO SCH (22:20)
[2022-05-03] MEDS: chlordiazePOXIDE HCL 25 MG CAPSULE PO SCH ×2 (05:50→10:17)
[2022-05-03] MEDS ORDERED: diazePAM 5 MG TABLET PO SCH (06:00)
[2022-05-03] MEDS: NICOTINE 10 MG CARTRIDGE (INHALER) IH PRN ×4 (08:52→22:30)
[2022-05-03] MEDS: METHOCARBAMOL 500 MG TABLET PO PRN ×2 (10:14→15:52)
[2022-05-03] MEDS: hydrOXYzine PAMOATE 25 MG CAPSULE (FP) PO PRN ×3 (10:14→22:27)
[2022-05-03] MEDS: LISINOPRIL 10 MG TABLET PO SCH (10:14)
[2022-05-03] MEDS: NICOTINE 21 MG/24 HOURS TOPICAL PATCH TD SCH (10:15)
[2022-05-03] MEDS: FOLIC ACID 1 MG TABLET (FP) PO SCH (10:15)
[2022-05-03] MEDS: PRENATAL VITAMINS W/ FOLIC ACID TABLET (FP) PO SCH (10:15)
[2022-05-03] MEDS ORDERED: LORazepam 1 MG TABLET PO PRN (13:00)
[2022-05-03] MEDS: NICOTINE POLACRILEX 4 MG GUM BUC PRN ×2 (13:19→15:55)
[2022-05-03] MEDS: LORazepam 2 MG TABLET PO SCH ×2 (17:37→22:28)
[2022-05-03] MEDS: traZODone HCL 100 MG TABLET (FP) PO SCH (22:27)
[2022-05-03] MEDS: MELATONIN 5 MG TABLETS PO SCH (22:29)
[2022-05-03] MEDS: THIAMINE HCL 100 MG TABLET (FP) PO SCH (22:29)
[2022-05-04] MEDS ORDERED: chlordiazePOXIDE HCL 10 MG CAPSULE PO PRN
[2022-05-04] MEDS ORDERED: chlordiazePOXIDE HCL 10 MG CAPSULE PO SCH (05:00)
[2022-05-04] MEDS: LORazepam 1 MG TABLET PO SCH ×4 (05:57→22:20)
[2022-05-04] MEDS ORDERED: diazePAM 5 MG TABLET PO ONE (06:00)
[2022-05-04] MEDS: METHOCARBAMOL 500 MG TABLET PO PRN ×3 (06:34→17:53)
[2022-05-04] MEDS: NICOTINE 10 MG CARTRIDGE (INHALER) IH PRN ×4 (06:34→22:22)
[2022-05-04] MEDS: PRENATAL VITAMINS W/ FOLIC ACID TABLET (FP) PO SCH (10:18)
[2022-05-04] MEDS: LISINOPRIL 10 MG TABLET PO SCH (10:33)
[2022-05-04] MEDS: hydrOXYzine PAMOATE 25 MG CAPSULE (FP) PO PRN ×3 (13:12→22:20)
[2022-05-04 13:51] VITALS: RESP 16
[2022-05-04] MEDS: NICOTINE POLACRILEX 4 MG GUM BUC PRN ×2 (17:58→22:22)
[2022-05-04] MEDS: THIAMINE HCL 100 MG TABLET (FP) PO SCH (22:19)
[2022-05-04] MEDS: traZODone HCL 100 MG TABLET (FP) PO SCH (22:20)
[2022-05-04] MEDS: MELATONIN 5 MG TABLETS PO SCH (22:20)
[2022-05-05] MEDS ORDERED: LORazepam 0.5 MG TABLET PO PRN
[2022-05-05] MEDS ORDERED: chlordiazePOXIDE HCL 10 MG CAPSULE PO SCH (05:00)
[2022-05-05] MEDS: LORazepam 0.5 MG TABLET PO SCH ×2 (05:27→10:32)
[2022-05-05] MEDS: METHOCARBAMOL 500 MG TABLET PO PRN (07:03)
[2022-05-05] MEDS: hydrOXYzine PAMOATE 25 MG CAPSULE (FP) PO PRN (07:03)
[2022-05-05 09:09] VITALS: TEMP 98.2
[2022-05-05] MEDS: PRENATAL VITAMINS W/ FOLIC ACID TABLET (FP) PO SCH (09:09)
[2022-05-05 09:28] VITALS: BP 121/81; PULSE 81
[2022-05-05] MEDS: LISINOPRIL 10 MG TABLET PO SCH (09:30)
[2022-05-05] MEDS: NICOTINE POLACRILEX 4 MG GUM BUC PRN (09:33)
[2022-05-05] MEDS: NICOTINE 10 MG CARTRIDGE (INHALER) IH PRN (09:35)
[2022-05-05 10:49] LABS: BASO % 1.3 % (0-2.0); EOS % 2.9 % (0-4.5); HEMATOCRIT 32.4 % (32.4-45.2); HEMOGLOBIN 10.2 GM/dL (10.7-15.3); LYMPH % 43.6 % (8-40); MCH 28.4 pg (25.7-33.7); MCHC 31.4 g/dl (32.0-36.0); MEAN CELL VOLUME 90.4 fl (80-96); MEAN PLT VOLUME 9.4 fl (7.5-11.1); MONO % 17.3 % (3.8-10.2); NEUT % 34.9 % (42.8-82.8); PLATELET COUNT 95 10^3/uL (134-434); RBC 3.58 M/mm3 (3.60-5.2); RDW 24.6 % (11.6-15.6); WHITE BLOOD COUNT 2.7 K/mm3 (4.0-10.0)
[2022-05-05 11:32] LABS: ANISOCYTOSIS 1+; MACROCYTOSIS 0
[2022-05-06] MEDS ORDERED: LORazepam 0.5 MG TABLET PO ONE (05:00)
[2022-05-06] MEDS ORDERED: chlordiazePOXIDE HCL 10 MG CAPSULE PO ONE (05:00)
== END 2022-05-05 10:47 | disposition home or self-care (01) | DRG 775 ==
LOC: YASAS 11:06 → Y6N 13:43
PROVIDERS: ADMIT Allergy & Immunology; ATTEND Surgery
PROC: HZ2ZZZZ Detoxification Services for Substance Abuse Treatment (ICD-10-PCS; principal; 2022-04-30)
DX: F10.230 Alcohol dependence with withdrawal, uncomplicated (principal); F13.230 Sedative, hypnotic or anxiolytic dependence with withdrawal, uncomplicated; F12.20 Cannabis dependence, uncomplicated; F10.282 Alcohol dependence with alcohol-induced sleep disorder; F10.280 Alcohol dependence with alcohol-induced anxiety disorder; F10.24 Alcohol dependence with alcohol-induced mood disorder; F32.9 Major depressive disorder, single episode, unspecified; F90.9 Attention-deficit hyperactivity disorder, unspecified type; D72.819 Decreased white blood cell count, unspecified; I48.91 Unspecified atrial fibrillation; I10 Essential (primary) hypertension; D50.9 Iron deficiency anemia, unspecified; E06.9 Thyroiditis, unspecified; K21.9 Gastro-esophageal reflux disease without esophagitis; Z62.810 Personal history of physical and sexual abuse in childhood; Z87.11 Personal history of peptic ulcer disease; Z91.011 Allergy to milk products; Z91.014 Allergy to mammalian meats; Z91.040 Latex allergy status
CPT/HCPCS: 36415; 80053; 81003; 81025; 82607; 82746; 83615; 84443; 84450; 85025; 85027; 86780; 87389; 87522; C9803-CS; G0008; Q0162; Q2036; U0003; U0005

== ENCOUNTER 2023-02-02 09:42 | Inpatient (IN) | payer OTHER ==
[2023-02-02 10:14] VITALS: BMI 19.3
[2023-02-02] MEDS ORDERED: TRIMETHOBENZAMIDE HCL 200MG/2ML INJ IM ONE ×2 (10:46→10:53)
[2023-02-02] MEDS ORDERED: LORazepam 2 MG/ML SDV VIAL IM ONE (10:46)
[2023-02-02] MEDS ORDERED: POLYETHYLENE GLYCOL (HEALTHYLAX) 3350 17 GM PACKET PO PRN (10:58)
[2023-02-02] MEDS ORDERED: DICYCLOMINE HCL 10 MG CAPSULE PO PRN (10:58)
[2023-02-02] MEDS ORDERED: IBUPROFEN 600 MG TABLET (FP) PO PRN (10:58)
[2023-02-02] MEDS ORDERED: IBUPROFEN 400 MG TABLET (FP) PO PRN (10:58)
[2023-02-02] MEDS ORDERED: BENZONATATE 200 MG CAPSULE PO PRN (10:58)
[2023-02-02] MEDS ORDERED: ACETAMINOPHEN 325 MG TABLET (FP) PO PRN (10:58)
[2023-02-02] MEDS ORDERED: ONDANSETRON *ODT* 4 MG TABLET SL PRN (10:58)
[2023-02-02] MEDS ORDERED: LOPERAMIDE HCL 2 MG CAPSULE PO PRN (10:58)
[2023-02-02] MEDS ORDERED: BISMUTH SUBSALICYLATE 262 MG/15 ML BTL PO PRN (10:58)
[2023-02-02] MEDS ORDERED: MAG HYDROX/AL HYDROX/SIMETH 30 ML UNIT-DOSE CUP PO PRN (10:58)
[2023-02-02] MEDS ORDERED: P-EPHED 60MG/TRIPROLIDI 2.5MG TABLET PO PRN (10:58)
[2023-02-02] MEDS ORDERED: MAGNESIUM HYDROX 2400MG/30ML ORAL SUSPENSION 30 ML CUP PO PRN (10:58)
[2023-02-02] MEDS ORDERED: BENZOCAINE/MENTHOL (CHLORASEPTIC ) LOZENGE MM PRN (10:58)
[2023-02-02] MEDS ORDERED: guaiFENesin 600 MG TABLET.ER (FP) PO PRN (10:58)
[2023-02-02] MEDS: chlordiazePOXIDE HCL 25 MG CAPSULE PO SCH ×3 (11:02→22:08)
[2023-02-02] MEDS ORDERED: chlordiazePOXIDE HCL 25 MG CAPSULE ONE (11:09)
[2023-02-02] MEDS: NICOTINE POLACRILEX 2 MG GUM BUC PRN ×2 (11:26→18:34)
[2023-02-02] MEDS ORDERED: MELATONIN 5 MG TABLETS PO SCH (22:00)
[2023-02-02] MEDS: THIAMINE HCL 100 MG TABLET (FP) PO SCH (22:08)
[2023-02-02] MEDS: chlordiazePOXIDE HCL 25 MG CAPSULE PO PRN (22:11)
[2023-02-03] MEDS: chlordiazePOXIDE HCL 25 MG CAPSULE PO SCH ×4 (05:49→22:00)
[2023-02-03] MEDS ORDERED: COLLOIDAL OATMEAL 1 BAR EACH TP PRN (10:05)
[2023-02-03] MEDS: LISINOPRIL 10 MG TABLET PO SCH (10:24)
[2023-02-03] MEDS: metoPROLOL SUCCINATE 25 MG TAB.SR.24H (FP) PO SCH (10:24)
[2023-02-03] MEDS: PRENATAL VITAMINS W/ FOLIC ACID TABLET (FP) PO SCH (10:24)
[2023-02-03] MEDS: NICOTINE POLACRILEX 2 MG GUM BUC PRN ×2 (10:26→18:50)
[2023-02-03] MEDS: MINERAL OIL/PETROLAT/WATER TOPICAL CREAM 113 GM JAR TP SCH (10:28)
[2023-02-03 12:15] LABS: HEMATOCRIT 30.7 % (32.4-45.2); HEMOGLOBIN 10.1 GM/dL (10.7-15.3); MCH 30.2 pg (25.7-33.7); MCHC 32.9 g/dl (32.0-36.0); MEAN CELL VOLUME 91.9 fl (80-96); MEAN PLT VOLUME 7.9 fl (7.5-11.1); PLATELET COUNT 124 10^3/uL (134-434); RBC 3.34 M/mm3 (3.60-5.2); RDW 17.6 % (11.6-15.6); WHITE BLOOD COUNT 2.4 K/mm3 (4.0-10.0)
[2023-02-03 12:22] LABS: POTASSIUM 3.7 mmol/L (3.5-5.1)
[2023-02-03 12:56] LABS: ALBUMIN 2.9 g/dl (3.4-5.0); CALCIUM 8.8 mg/dL (8.5-10.1)
[2023-02-03 12:57] LABS: BLOOD UREA NITROGEN 4.8 mg/dL (7-18)
[2023-02-03 12:59] LABS: CREATININE 0.5 mg/dL (0.55-1.3); TOT PROT 5.7 g/dl (6.4-8.2)
[2023-02-03 13:00] LABS: BILIRUBIN,TOTAL 0.6 mg/dL (0.2-1)
[2023-02-03] MEDS: chlordiazePOXIDE HCL 25 MG CAPSULE PO PRN (13:31)
[2023-02-03] MEDS: traZODone HCL 100 MG TABLET (FP) PO SCH (21:59)
[2023-02-03] MEDS: THIAMINE HCL 100 MG TABLET (FP) PO SCH (21:59)
[2023-02-04] MEDS: METHOCARBAMOL 500 MG TABLET PO PRN (00:30)
[2023-02-04] MEDS: hydrOXYzine PAMOATE 25 MG CAPSULE (FP) PO PRN (00:30)
[2023-02-04] MEDS: chlordiazePOXIDE HCL 25 MG CAPSULE PO SCH ×4 (05:22→22:14)
[2023-02-04] MEDS: metoPROLOL SUCCINATE 25 MG TAB.SR.24H (FP) PO SCH (09:58)
[2023-02-04] MEDS: LISINOPRIL 10 MG TABLET PO SCH (09:58)
[2023-02-04] MEDS: PRENATAL VITAMINS W/ FOLIC ACID TABLET (FP) PO SCH (09:58)
[2023-02-04] MEDS: MINERAL OIL/PETROLAT/WATER TOPICAL CREAM 113 GM JAR TP SCH (09:59)
[2023-02-04] MEDS: NICOTINE POLACRILEX 2 MG GUM BUC PRN (10:00)
[2023-02-04] MEDS: chlordiazePOXIDE HCL 25 MG CAPSULE PO PRN (19:33)
[2023-02-04] MEDS: traZODone HCL 100 MG TABLET (FP) PO SCH (22:13)
[2023-02-04] MEDS: THIAMINE HCL 100 MG TABLET (FP) PO SCH (22:14)
[2023-02-05] MEDS ORDERED: chlordiazePOXIDE HCL 10 MG CAPSULE PO PRN
[2023-02-05] MEDS: METHOCARBAMOL 500 MG TABLET PO PRN ×2 (01:01→17:05)
[2023-02-05] MEDS: hydrOXYzine PAMOATE 25 MG CAPSULE (FP) PO PRN ×3 (01:01→21:59)
[2023-02-05] MEDS: chlordiazePOXIDE HCL 10 MG CAPSULE PO SCH ×4 (05:28→21:59)
[2023-02-05] MEDS: PRENATAL VITAMINS W/ FOLIC ACID TABLET (FP) PO SCH (10:05)
[2023-02-05] MEDS: metoPROLOL SUCCINATE 25 MG TAB.SR.24H (FP) PO SCH (10:07)
[2023-02-05] MEDS: LISINOPRIL 10 MG TABLET PO SCH (10:07)
[2023-02-05] MEDS: MINERAL OIL/PETROLAT/WATER TOPICAL CREAM 113 GM JAR TP SCH (10:10)
[2023-02-05] MEDS: NICOTINE POLACRILEX 2 MG GUM BUC PRN (20:57)
[2023-02-05] MEDS: traZODone HCL 100 MG TABLET (FP) PO SCH (21:59)
[2023-02-05] MEDS: THIAMINE HCL 100 MG TABLET (FP) PO SCH (21:59)
[2023-02-06] MEDS: METHOCARBAMOL 500 MG TABLET PO PRN ×2 (02:53→09:02)
[2023-02-06] MEDS ORDERED: chlordiazePOXIDE HCL 10 MG CAPSULE PO SCH (05:00)
[2023-02-06] MEDS: NICOTINE POLACRILEX 2 MG GUM BUC PRN (09:03)
[2023-02-06 09:27] VITALS: BP 110/77; PULSE 84; RESP 17; TEMP 98
[2023-02-06] MEDS: MINERAL OIL/PETROLAT/WATER TOPICAL CREAM 113 GM JAR TP SCH (09:52)
[2023-02-06] MEDS: metoPROLOL SUCCINATE 25 MG TAB.SR.24H (FP) PO SCH (09:52)
[2023-02-06] MEDS: LISINOPRIL 10 MG TABLET PO SCH (09:52)
[2023-02-06] MEDS: PRENATAL VITAMINS W/ FOLIC ACID TABLET (FP) PO SCH (09:52)
[2023-02-07] MEDS ORDERED: chlordiazePOXIDE HCL 10 MG CAPSULE PO ONE (05:00)
== END 2023-02-06 10:18 | disposition home or self-care (01) | DRG 775 ==
LOC: YASAS 09:42 → Y6N 11:06
PROVIDERS: ADMIT Allergy & Immunology; ATTEND Psychiatry & Neurology Pain Medicine
PROC: HZ2ZZZZ Detoxification Services for Substance Abuse Treatment (ICD-10-PCS; principal; 2023-02-02)
DX: F10.230 Alcohol dependence with withdrawal, uncomplicated (principal); F13.230 Sedative, hypnotic or anxiolytic dependence with withdrawal, uncomplicated; F17.210 Nicotine dependence, cigarettes, uncomplicated; I10 Essential (primary) hypertension; K21.9 Gastro-esophageal reflux disease without esophagitis; E03.9 Hypothyroidism, unspecified; Z62.810 Personal history of physical and sexual abuse in childhood; Z87.11 Personal history of peptic ulcer disease; Z91.040 Latex allergy status; Z91.011 Allergy to milk products
CPT/HCPCS: 36415; 80053; 81025; 82962; 85027; 86780; 87635; Q0162

== ENCOUNTER 2023-02-02 13:27 | Emergency (ER) | payer OTHER ==
[2023-02-02] MEDS ORDERED: NALOXONE HCL 0.4 MG/ML VIAL ONE (13:33)
[2023-02-02] MEDS ORDERED: NALOXONE HCL 0.4 MG/ML VIAL IVPUSH ONE (13:54)
[2023-02-02] MEDS ORDERED: LACTATED RINGERS SOLUTION 1000 ML INFUS.BAG IV ONE (13:55)
[2023-02-02 13:56] VITALS: TEMP 98; BMI 22.6
[2023-02-02 14:39] LABS: HEMATOCRIT 29.8 % (32.4-45.2); HEMOGLOBIN 9.7 GM/dL (10.7-15.3); MCH 30.2 pg (25.7-33.7); MCHC 32.6 g/dl (32.0-36.0); MEAN CELL VOLUME 92.7 fl (80-96); MEAN PLT VOLUME 7.2 fl (7.5-11.1); PLATELET COUNT 134 10^3/uL (134-434); RBC 3.21 M/mm3 (3.60-5.2); RDW 18.2 % (11.6-15.6); WHITE BLOOD COUNT 2.4 K/mm3 (4.0-10.0)
[2023-02-02 14:45] LABS: INR 0.95 (0.83-1.09)
[2023-02-02 14:48] LABS: ACTIVATED PTT 27.6 SECONDS (25.2-36.5)
[2023-02-02 15:08] LABS: ANISOCYTOSIS 1+; MACROCYTOSIS 0
[2023-02-02 15:17] LABS: POTASSIUM 3.8 mmol/L (3.5-5.1)
[2023-02-02 15:38] LABS: CALCIUM 8.1 mg/dL (8.5-10.1)
[2023-02-02 15:39] LABS: BLOOD UREA NITROGEN 4.1 mg/dL (7-18); MAGNESIUM 2.2 mg/dL (1.8-2.4)
[2023-02-02 15:42] LABS: CREATININE 0.5 mg/dL (0.55-1.3)
[2023-02-02 15:43] LABS: BILIRUBIN,TOTAL 0.2 mg/dL (0.2-1)
[2023-02-02 15:44] LABS: TOT PROT 6.2 g/dl (6.4-8.2)
[2023-02-02 15:47] LABS: ALBUMIN 3.1 g/dl (3.4-5.0); N-TERMINAL BNP 19.6 pg/ml (5-125)
[2023-02-02 16:56] VITALS: BP 123/86; PULSE 104; RESP 20
== END 2023-02-02 17:25 | disposition home or self-care (01) ==
LOC: JER 13:27
PROC: 3E033NZ Introduction of Analgesics, Hypnotics, Sedatives into Peripheral Vein, Percutaneous Approach (ICD-10-PCS; principal; 2023-02-02)
DX: F10.230 Alcohol dependence with withdrawal, uncomplicated (principal); R40.0 Somnolence
CPT/HCPCS: 36415; 80053; 80307; 82962; 83735; 83880; 84484; 84703; 85025; 85610; 85730; 93005; 93010; 99284-25

== ENCOUNTER 2023-03-02 11:55 | Observation (INO) | payer OTHER ==
[2023-03-02 12:00] VITALS: BMI 20.5
[2023-03-02] MEDS ORDERED: SODIUM CHLORIDE 0.9% 500 ML INFUS.BAG IV ONE (13:39)
[2023-03-02] MEDS ORDERED: chlordiazePOXIDE HCL 25 MG CAPSULE PO ONE ×2 (13:43→17:32)
[2023-03-02] MEDS ORDERED: chlordiazePOXIDE HCL 25 MG CAPSULE ONE ×2 (13:49→17:50)
[2023-03-02 15:12] LABS: HEMATOCRIT 36.3 % (32.4-45.2); HEMOGLOBIN 11.7 GM/dL (10.7-15.3); MCH 30.4 pg (25.7-33.7); MCHC 32.2 g/dl (32.0-36.0); MEAN CELL VOLUME 94.7 fl (80-96); MEAN PLT VOLUME 8.8 fl (7.5-11.1); RBC 3.84 M/mm3 (3.60-5.2); RDW 18.8 % (11.6-15.6)
[2023-03-02 15:16] LABS: PLATELET COUNT 26 10^3/uL (134-434)
[2023-03-02 15:20] LABS: INR 0.99 (0.83-1.09); PROTHROMBIN TIME (PATIENT) 11.5 SEC (9.7-13.0)
[2023-03-02 15:22] LABS: ACTIVATED PTT 28.5 SECONDS (25.2-36.5)
[2023-03-02 15:31] LABS: POTASSIUM 4.2 mmol/L (3.5-5.1)
[2023-03-02 15:32] LABS: ANISOCYTOSIS 0; HELMET CELLS 0; HOWELL-JOLLY BODIES 0; MACROCYTOSIS 0; OVALOCYTE 0; ROULEAU 0; SICKELED CELLS 0; TARGET CELLS 0; TEAR DROP CELLS 0; TOXIC GRANULATION 0
[2023-03-02 15:33] LABS: ALBUMIN 3.9 g/dl (3.4-5.0); CALCIUM 9.4 mg/dL (8.5-10.1)
[2023-03-02 15:34] LABS: BLOOD UREA NITROGEN 7.1 mg/dL (7-18)
[2023-03-02 15:36] LABS: CREATININE 0.8 mg/dL (0.55-1.3)
[2023-03-02 15:38] LABS: BILIRUBIN,TOTAL 2.1 mg/dL (0.2-1)
[2023-03-02 16:26] LABS: EPI CELLS >36 /uL (0-25.1); HYALINE CASTS 3 /uL (0-3.1); URINE APPEARANCE CLOUDY; URINE BILIRUBIN 2+ (NEGATIVE); URINE COLOR ORANGE; URINE GLUCOSE (UA) NEGATIVE (NEGATIVE); URINE KETONE TRACE (NEGATIVE); URINE LEUK ESTERASE 1+ (NEGATIVE); URINE NITRITE POSITIVE (NEGATIVE); URINE PROTEIN 2+ (NEGATIVE); URINE WBC 43 /uL (0-25.8)
[2023-03-02 16:27] LABS: URINE BACTERIA 428 /uL (0-1359); URINE RBC 52 /uL (0-23.9)
[2023-03-02] MEDS ORDERED: CEFTRIAXONE 1,000 MG in DEXTROSE 5%-WATER - 50 ML IVPB ONE (16:47)
[2023-03-02] MEDS ORDERED: LACTATED RINGERS SOLUTION 1,000 ML IV STA (16:47)
[2023-03-02] MEDS ORDERED: CEFTRIAXONE 1 GM/50 ML BAG ONE (17:51)
[2023-03-02] MEDS ORDERED: chlordiazePOXIDE HCL 25 MG CAPSULE PO PRN (21:09)
[2023-03-02] MEDS ORDERED: traZODone HCL 100 MG TABLET (FP) PO SCH (22:00)
[2023-03-02] MEDS: chlordiazePOXIDE HCL 25 MG CAPSULE PO SCH (22:49)
[2023-03-03] MEDS: chlordiazePOXIDE HCL 25 MG CAPSULE PO SCH ×2 (07:10→11:07)
[2023-03-03] MEDS ORDERED: LACTATED RINGERS SOLUTION 1,000 ML/1,000 ML INFUS.BAG IV SCH (07:45)
[2023-03-03 08:08] LABS: HEMATOCRIT 29.1 % (32.4-45.2); HEMOGLOBIN 9.6 GM/dL (10.7-15.3); MEAN CELL VOLUME 93.8 fl (80-96); MEAN PLT VOLUME 9.2 fl (7.5-11.1); WHITE BLOOD COUNT 2.2 K/mm3 (4.0-10.0)
[2023-03-03 08:24] LABS: PLATELET COUNT 19 10^3/uL (134-434)
[2023-03-03] MEDS ORDERED: FOLIC ACID 1 MG TABLET (FP) PO SCH (10:00)
[2023-03-03] MEDS ORDERED: CEFTRIAXONE 1 GM in DEXTROSE 5%-WATER - 50 ML IVPB SCH (10:00)
[2023-03-03] MEDS ORDERED: LISINOPRIL 10 MG TABLET PO SCH (10:00)
[2023-03-03] MEDS ORDERED: THIAMINE HCL 100 MG TABLET (FP) PO SCH (10:00)
[2023-03-03 10:23] LABS: POTASSIUM 3.7 mmol/L (3.5-5.1)
[2023-03-03 10:27] LABS: ALBUMIN 3.1 g/dl (3.4-5.0); BLOOD UREA NITROGEN 7.6 mg/dL (7-18); CALCIUM 8.4 mg/dL (8.5-10.1); MAGNESIUM 1.7 mg/dL (1.8-2.4)
[2023-03-03 10:30] LABS: CREATININE 0.7 mg/dL (0.55-1.3)
[2023-03-03 10:31] LABS: PHOSPHOROUS 2.6 mg/dL (2.5-4.9)
[2023-03-03 10:32] LABS: BILIRUBIN,TOTAL 1.9 mg/dL (0.2-1)
[2023-03-03 10:34] LABS: TOT PROT 5.9 g/dl (6.4-8.2)
[2023-03-03 12:44] VITALS: BP 91/51; PULSE 83; RESP 18; TEMP 98.2
[2023-03-03 14:23] LABS: COCAINE, UR NEGATIVE (NEGATIVE); METHADONE, UR NEGATIVE (NEGATIVE); OPIATES, URI NEGATIVE (NEGATIVE)
[2023-03-03 14:24] LABS: PHENCYCLIDINE,URINE NEGATIVE (NEGATIVE)
[2023-03-03 14:26] LABS: URINE BARBITURATES NEGATIVE (NEGATIVE)
[2023-03-03 14:31] LABS: URINE AMPHETAMINES NEGATIVE (NEGATIVE); URINE BENZODIAZEPINES POSITIVE (NEGATIVE)
[2023-03-04] MEDS ORDERED: chlordiazePOXIDE HCL 25 MG CAPSULE PO SCH (05:00)
[2023-03-05] MEDS ORDERED: chlordiazePOXIDE HCL 10 MG CAPSULE PO PRN
[2023-03-05] MEDS ORDERED: chlordiazePOXIDE HCL 10 MG CAPSULE PO SCH (05:00)
[2023-03-06] MEDS ORDERED: chlordiazePOXIDE HCL 10 MG CAPSULE PO SCH (05:00)
[2023-03-07] MEDS ORDERED: chlordiazePOXIDE HCL 10 MG CAPSULE PO ONE (05:00)
== END 2023-03-03 14:08 | disposition left against medical advice (07) ==
LOC: JER 11:55 → JERBED 17:17 → UNDOADMOB 17:17 → INTOOBSV 17:17 → JERBED 22:16 → J5S 22:16 → JERBED 03-03 09:46
PROVIDERS: ADMIT Internal Medicine; ATTEND Internal Medicine
PROC: 3E03329 Introduction of Other Anti-infective into Peripheral Vein, Percutaneous Approach (ICD-10-PCS; principal; 2023-03-03)
PROC: 3E0337Z Introduction of Electrolytic and Water Balance Substance into Peripheral Vein, Percutaneous Approach (ICD-10-PCS; 2023-03-03)
DX: N39.0 Urinary tract infection, site not specified (principal); K85.90 Acute pancreatitis without necrosis or infection, unspecified; I48.91 Unspecified atrial fibrillation; F19.10 Other psychoactive substance abuse, uncomplicated; I10 Essential (primary) hypertension; F41.8 Other specified anxiety disorders; Z91.011 Allergy to milk products; Z91.040 Latex allergy status
CPT/HCPCS: 36415; 76705-TC; 80053; 80307; 81003; 83690; 83735; 84100; 85025; 85027; 85610; 85730; 87086; 93005; 93010; 96361; 96365; 96366; 99285-25; G0378

== ENCOUNTER 2023-06-23 20:57 | Inpatient (IN) | payer OTHER ==
[2023-06-23 22:33] VITALS: BMI 18.6
[2023-06-24] MEDS ORDERED: MAG HYDROX/AL HYDROX/SIMETH 30 ML UNIT-DOSE CUP PO PRN (00:12)
[2023-06-24] MEDS ORDERED: LOPERAMIDE HCL 2 MG CAPSULE PO PRN (00:12)
[2023-06-24] MEDS ORDERED: DICYCLOMINE HCL 10 MG CAPSULE PO PRN (00:12)
[2023-06-24] MEDS ORDERED: ACETAMINOPHEN 325 MG TABLET (FP) PO PRN (00:12)
[2023-06-24] MEDS ORDERED: NALOXONE HCL 0.4 MG/ML VIAL IM PRN (00:12)
[2023-06-24] MEDS ORDERED: IBUPROFEN 400 MG TABLET (FP) PO PRN (00:12)
[2023-06-24] MEDS ORDERED: BENZOCAINE/MENTHOL (CHLORASEPTIC ) LOZENGE MM PRN (00:12)
[2023-06-24] MEDS ORDERED: ONDANSETRON *ODT* 4 MG TABLET SL PRN (00:12)
[2023-06-24] MEDS ORDERED: BENZONATATE 200 MG CAPSULE PO PRN (00:12)
[2023-06-24] MEDS ORDERED: guaiFENesin 600 MG TABLET.ER (FP) PO PRN (00:12)
[2023-06-24] MEDS ORDERED: MAGNESIUM HYDROX 2400MG/30ML ORAL SUSPENSION 30 ML CUP PO PRN (00:12)
[2023-06-24] MEDS ORDERED: BISMUTH SUBSALICYLATE 524 MG/30 ML PO PRN (00:12)
[2023-06-24] MEDS ORDERED: IBUPROFEN 600 MG TABLET (FP) PO PRN (00:12)
[2023-06-24] MEDS ORDERED: NALOXONE HCL (KLOXXADO) 8 MG SPRAY NS PRN (00:12)
[2023-06-24] MEDS ORDERED: POLYETHYLENE GLYCOL (HEALTHYLAX) 3350 17 GM PACKET PO PRN (00:12)
[2023-06-24] MEDS ORDERED: ONDANSETRON *ODT* 4 MG TABLET ONE (00:38)
[2023-06-24] MEDS ORDERED: chlordiazePOXIDE HCL 25 MG CAPSULE ONE (00:38)
[2023-06-24] MEDS: chlordiazePOXIDE HCL 25 MG CAPSULE PO PRN ×2 (00:41→14:28)
[2023-06-24] MEDS: NICOTINE POLACRILEX 4 MG GUM BUC PRN ×2 (02:39→17:34)
[2023-06-24] MEDS: chlordiazePOXIDE HCL 25 MG CAPSULE PO SCH ×4 (05:26→22:17)
[2023-06-24] MEDS: METHOCARBAMOL 500 MG TABLET PO PRN (05:29)
[2023-06-24] MEDS: NICOTINE 21 MG/24 HOURS TOPICAL PATCH TD SCH (10:09)
[2023-06-24] MEDS: PRENATAL VITAMINS W/ FOLIC ACID TABLET (FP) PO SCH (10:09)
[2023-06-24] MEDS ORDERED: COLLOIDAL OATMEAL 1 BAR EACH TP PRN (10:56)
[2023-06-24 12:21] LABS: HEMATOCRIT 31.9 % (32.4-45.2); HEMOGLOBIN 10.4 GM/dL (10.7-15.3); MCH 30.6 pg (25.7-33.7); MCHC 32.7 g/dl (32.0-36.0); MEAN CELL VOLUME 93.8 fl (80-96); MEAN PLT VOLUME 7.9 fl (7.5-11.1); PLATELET COUNT 160 10^3/uL (134-434); RDW 17.2 % (11.6-15.6)
[2023-06-24 12:53] LABS: POTASSIUM 4.2 mmol/L (3.5-5.1)
[2023-06-24 12:58] LABS: ALBUMIN 3.4 g/dl (3.4-5.0); CALCIUM 8.3 mg/dL (8.5-10.1)
[2023-06-24 13:01] LABS: CREATININE 0.6 mg/dL (0.55-1.3)
[2023-06-24 13:02] LABS: BILIRUBIN,TOTAL 0.5 mg/dL (0.2-1); TOT PROT 7.2 g/dl (6.4-8.2)
[2023-06-24] MEDS: MELATONIN 5 MG TABLETS PO SCH (22:17)
[2023-06-24] MEDS: THIAMINE HCL 100 MG TABLET (FP) PO SCH (22:17)
[2023-06-25] MEDS: METHOCARBAMOL 500 MG TABLET PO PRN ×3 (00:48→17:22)
[2023-06-25] MEDS: chlordiazePOXIDE HCL 25 MG CAPSULE PO PRN (00:49)
[2023-06-25] MEDS: chlordiazePOXIDE HCL 25 MG CAPSULE PO SCH ×4 (05:43→22:55)
[2023-06-25] MEDS ORDERED: LISINOPRIL 10 MG TABLET PO SCH (10:00)
[2023-06-25] MEDS: PRENATAL VITAMINS W/ FOLIC ACID TABLET (FP) PO SCH (10:12)
[2023-06-25] MEDS: NICOTINE 21 MG/24 HOURS TOPICAL PATCH TD SCH (10:12)
[2023-06-25] MEDS: LISINOPRIL 10 MG TABLET PO SCH (10:12)
[2023-06-25] MEDS: THIAMINE HCL 100 MG TABLET (FP) PO SCH (22:54)
[2023-06-25] MEDS: MELATONIN 5 MG TABLETS PO SCH (22:54)
[2023-06-26] MEDS ORDERED: chlordiazePOXIDE HCL 10 MG CAPSULE PO PRN
[2023-06-26] MEDS: METHOCARBAMOL 500 MG TABLET PO PRN ×3 (01:16→22:17)
[2023-06-26] MEDS: chlordiazePOXIDE HCL 10 MG CAPSULE PO SCH ×4 (06:21→22:17)
[2023-06-26] MEDS: PRENATAL VITAMINS W/ FOLIC ACID TABLET (FP) PO SCH (10:15)
[2023-06-26] MEDS: NICOTINE 21 MG/24 HOURS TOPICAL PATCH TD SCH (10:15)
[2023-06-26] MEDS: LISINOPRIL 10 MG TABLET PO SCH (10:51)
[2023-06-26] MEDS: NICOTINE POLACRILEX 4 MG GUM BUC PRN ×2 (13:17→15:46)
[2023-06-26] MEDS ORDERED: traZODone HCL 100 MG TABLET (FP) PO SCH (22:00)
[2023-06-26] MEDS: MELATONIN 5 MG TABLETS PO SCH (22:17)
[2023-06-26] MEDS: THIAMINE HCL 100 MG TABLET (FP) PO SCH (22:17)
[2023-06-27] MEDS ORDERED: chlordiazePOXIDE HCL 10 MG CAPSULE PO SCH (05:00)
[2023-06-27] MEDS: NICOTINE 21 MG/24 HOURS TOPICAL PATCH TD SCH (10:37)
[2023-06-27] MEDS: PRENATAL VITAMINS W/ FOLIC ACID TABLET (FP) PO SCH (10:40)
[2023-06-27] MEDS: LISINOPRIL 10 MG TABLET PO SCH ×2 (10:40)
[2023-06-27] MEDS: NICOTINE POLACRILEX 4 MG GUM BUC PRN ×2 (10:42→14:19)
[2023-06-27] MEDS: METHOCARBAMOL 500 MG TABLET PO PRN (10:43)
[2023-06-27] MEDS ORDERED: chlordiazePOXIDE HCL 10 MG CAPSULE PO ONE (12:03)
[2023-06-27 13:16] VITALS: BP 96/62; PULSE 81; RESP 18; TEMP 97.7
[2023-06-28] MEDS ORDERED: chlordiazePOXIDE HCL 10 MG CAPSULE PO ONE (05:00)
== END 2023-06-27 14:22 | disposition home or self-care (01) | DRG 775 ==
LOC: YASAS 20:57 → Y6N 06-24 02:21
PROVIDERS: ADMIT Allergy & Immunology; ATTEND Surgery
PROC: HZ2ZZZZ Detoxification Services for Substance Abuse Treatment (ICD-10-PCS; principal; 2023-06-24)
DX: F10.230 Alcohol dependence with withdrawal, uncomplicated (principal); F10.24 Alcohol dependence with alcohol-induced mood disorder; F10.282 Alcohol dependence with alcohol-induced sleep disorder; F10.280 Alcohol dependence with alcohol-induced anxiety disorder; F12.20 Cannabis dependence, uncomplicated; F17.210 Nicotine dependence, cigarettes, uncomplicated; F32.A Depression, unspecified; F90.9 Attention-deficit hyperactivity disorder, unspecified type; I10 Essential (primary) hypertension; D72.819 Decreased white blood cell count, unspecified; I48.91 Unspecified atrial fibrillation; E03.9 Hypothyroidism, unspecified; Z62.810 Personal history of physical and sexual abuse in childhood; Z98.84 Bariatric surgery status; Z56.0 Unemployment, unspecified
CPT/HCPCS: 36415; 80053; 80307; 81025; 85027; 86780; 87635; 87811; Q0162

== ENCOUNTER 2023-07-15 10:11 | Inpatient (IN) | payer OTHER ==
[2023-07-15 10:31] VITALS: BMI 19.5
[2023-07-15] MEDS ORDERED: MAG HYDROX/AL HYDROX/SIMETH 30 ML UNIT-DOSE CUP PO PRN (10:44)
[2023-07-15] MEDS ORDERED: IBUPROFEN 400 MG TABLET (FP) PO PRN (10:44)
[2023-07-15] MEDS ORDERED: ONDANSETRON *ODT* 4 MG TABLET SL PRN (10:44)
[2023-07-15] MEDS ORDERED: ACETAMINOPHEN 325 MG TABLET (FP) PO PRN (10:44)
[2023-07-15] MEDS ORDERED: IBUPROFEN 600 MG TABLET (FP) PO PRN (10:44)
[2023-07-15] MEDS ORDERED: P-EPHED 60MG/TRIPROLIDI 2.5MG TABLET PO PRN (10:44)
[2023-07-15] MEDS ORDERED: BISMUTH SUBSALICYLATE 262 MG/15 ML BTL PO PRN (10:44)
[2023-07-15] MEDS ORDERED: MAGNESIUM HYDROX 2400MG/30ML ORAL SUSPENSION 30 ML CUP PO PRN (10:44)
[2023-07-15] MEDS ORDERED: LOPERAMIDE HCL 2 MG CAPSULE PO PRN (10:44)
[2023-07-15] MEDS ORDERED: DICYCLOMINE HCL 10 MG CAPSULE PO PRN (10:44)
[2023-07-15] MEDS ORDERED: BENZONATATE 200 MG CAPSULE PO PRN (10:44)
[2023-07-15] MEDS ORDERED: POLYETHYLENE GLYCOL (HEALTHYLAX) 3350 17 GM PACKET PO PRN (10:44)
[2023-07-15] MEDS: levETIRAcetam 500 MG TABLET (FP) PO SCH ×2 (11:01→22:23)
[2023-07-15] MEDS: chlordiazePOXIDE HCL 25 MG CAPSULE PO SCH ×3 (11:01→22:25)
[2023-07-15] MEDS: NICOTINE POLACRILEX 2 MG GUM BUC PRN ×3 (12:07→20:13)
[2023-07-15 13:46] LABS: POTASSIUM 3.4 mmol/L (3.5-5.1)
[2023-07-15 13:49] LABS: HEMATOCRIT 31.1 % (32.4-45.2); MCH 30.2 pg (25.7-33.7); MCHC 32.3 g/dl (32.0-36.0); MEAN CELL VOLUME 93.6 fl (80-96); MEAN PLT VOLUME 7.7 fl (7.5-11.1); PLATELET COUNT 109 10^3/uL (134-434); RBC 3.32 M/mm3 (3.60-5.2); RDW 18.4 % (11.6-15.6); WHITE BLOOD COUNT 3.7 K/mm3 (4.0-10.0)
[2023-07-15 13:50] LABS: CALCIUM 8.8 mg/dL (8.5-10.1)
[2023-07-15 13:52] LABS: ALBUMIN 3.4 g/dl (3.4-5.0); BLOOD UREA NITROGEN 3.1 mg/dL (7-18); CREATININE 0.5 mg/dL (0.55-1.3)
[2023-07-15 13:53] LABS: BILIRUBIN,TOTAL 0.5 mg/dL (0.2-1)
[2023-07-15 13:54] LABS: TOT PROT 7.5 g/dl (6.4-8.2)
[2023-07-15] MEDS: chlordiazePOXIDE HCL 25 MG CAPSULE PO PRN ×2 (14:13→20:10)
[2023-07-15] MEDS: METHOCARBAMOL 500 MG TABLET PO PRN ×2 (14:13→20:13)
[2023-07-15] MEDS: guaiFENesin 600 MG TABLET.ER (FP) PO PRN (14:13)
[2023-07-15] MEDS: THIAMINE HCL 100 MG TABLET (FP) PO SCH (22:23)
[2023-07-15] MEDS: MELATONIN 5 MG TABLETS PO SCH (22:23)
[2023-07-16] MEDS: chlordiazePOXIDE HCL 25 MG CAPSULE PO SCH ×4 (05:14→22:20)
[2023-07-16] MEDS: METHOCARBAMOL 500 MG TABLET PO PRN ×2 (05:18→13:13)
[2023-07-16] MEDS: PRENATAL VITAMINS W/ FOLIC ACID TABLET (FP) PO SCH (10:14)
[2023-07-16] MEDS: levETIRAcetam 500 MG TABLET (FP) PO SCH ×2 (10:14→22:20)
[2023-07-16] MEDS: NICOTINE POLACRILEX 2 MG GUM BUC PRN ×2 (10:18→17:52)
[2023-07-16] MEDS ORDERED: COLLOIDAL OATMEAL 1 BAR EACH TP PRN (10:19)
[2023-07-16] MEDS: BENZOCAINE/MENTHOL (CHLORASEPTIC ) LOZENGE MM PRN (13:11)
[2023-07-16] MEDS: hydrOXYzine PAMOATE 25 MG CAPSULE (FP) PO PRN (15:10)
[2023-07-16] MEDS: guaiFENesin 600 MG TABLET.ER (FP) PO PRN ×2 (15:14→17:49)
[2023-07-16] MEDS: THIAMINE HCL 100 MG TABLET (FP) PO SCH (22:20)
[2023-07-16] MEDS: MELATONIN 5 MG TABLETS PO SCH (22:20)
[2023-07-17] MEDS: chlordiazePOXIDE HCL 25 MG CAPSULE PO PRN ×2 (01:18→13:06)
[2023-07-17] MEDS: METHOCARBAMOL 500 MG TABLET PO PRN (01:20)
[2023-07-17] MEDS: BENZOCAINE/MENTHOL (CHLORASEPTIC ) LOZENGE MM PRN ×2 (01:22→10:10)
[2023-07-17] MEDS: chlordiazePOXIDE HCL 25 MG CAPSULE PO SCH ×4 (04:39→22:33)
[2023-07-17] MEDS: hydrOXYzine PAMOATE 25 MG CAPSULE (FP) PO PRN ×2 (04:40→23:40)
[2023-07-17] MEDS: levETIRAcetam 500 MG TABLET (FP) PO SCH ×2 (10:09→22:33)
[2023-07-17] MEDS: PRENATAL VITAMINS W/ FOLIC ACID TABLET (FP) PO SCH (10:09)
[2023-07-17] MEDS: NICOTINE POLACRILEX 2 MG GUM BUC PRN ×2 (10:11→16:10)
[2023-07-17] MEDS: THIAMINE HCL 100 MG TABLET (FP) PO SCH (22:33)
[2023-07-17] MEDS: MELATONIN 5 MG TABLETS PO SCH (22:34)
[2023-07-18] MEDS ORDERED: chlordiazePOXIDE HCL 10 MG CAPSULE PO PRN
[2023-07-18] MEDS: METHOCARBAMOL 500 MG TABLET PO PRN ×2 (02:34→10:13)
[2023-07-18] MEDS ORDERED: chlordiazePOXIDE HCL 10 MG CAPSULE PO SCH (05:00)
[2023-07-18] MEDS: NICOTINE POLACRILEX 2 MG GUM BUC PRN ×2 (05:09→13:49)
[2023-07-18 06:06] VITALS: RESP 16
[2023-07-18] MEDS: BENZOCAINE/MENTHOL (CHLORASEPTIC ) LOZENGE MM PRN (06:41)
[2023-07-18] MEDS: levETIRAcetam 500 MG TABLET (FP) PO SCH (10:12)
[2023-07-18] MEDS: hydrOXYzine PAMOATE 25 MG CAPSULE (FP) PO PRN (10:12)
[2023-07-18] MEDS: PRENATAL VITAMINS W/ FOLIC ACID TABLET (FP) PO SCH (10:13)
[2023-07-18] MEDS ORDERED: GABAPENTIN 100 MG CAPSULE PO SCH (11:00)
[2023-07-18] MEDS ORDERED: LORazepam 1 MG TABLET PO SCH (11:00)
[2023-07-18 13:01] VITALS: BP 116/79; PULSE 105; TEMP 97.3
[2023-07-18] MEDS ORDERED: traZODone HCL 100 MG TABLET (FP) PO SCH (22:00)
[2023-07-19] MEDS ORDERED: chlordiazePOXIDE HCL 10 MG CAPSULE PO SCH (05:00)
[2023-07-19] MEDS ORDERED: LORazepam 0.5 MG TABLET PO SCH (05:00)
[2023-07-20] MEDS ORDERED: chlordiazePOXIDE HCL 10 MG CAPSULE PO ONE (05:00)
[2023-07-20] MEDS ORDERED: LORazepam 0.5 MG TABLET PO ONE (05:00)
== END 2023-07-18 14:05 | disposition left against medical advice (07) | DRG 770 ==
LOC: YASAS 10:11 → Y6N 10:55
PROVIDERS: ADMIT Allergy & Immunology; ATTEND Surgery
PROC: HZ2ZZZZ Detoxification Services for Substance Abuse Treatment (ICD-10-PCS; principal; 2023-07-15)
DX: F10.230 Alcohol dependence with withdrawal, uncomplicated (principal); F17.213 Nicotine dependence, cigarettes, with withdrawal; F10.282 Alcohol dependence with alcohol-induced sleep disorder; F10.280 Alcohol dependence with alcohol-induced anxiety disorder; F10.24 Alcohol dependence with alcohol-induced mood disorder; F31.9 Bipolar disorder, unspecified; F90.9 Attention-deficit hyperactivity disorder, unspecified type; F32.9 Major depressive disorder, single episode, unspecified; E87.6 Hypokalemia; I10 Essential (primary) hypertension; R26.89 Other abnormalities of gait and mobility; Z87.11 Personal history of peptic ulcer disease; Z62.810 Personal history of physical and sexual abuse in childhood; Z63.8 Other specified problems related to primary support group
CPT/HCPCS: 36415; 80053; 80307; 81025; 84132; 85027; 86780; 87635; 87811

== ENCOUNTER 2023-11-23 19:15 | Emergency (ER) | payer OTHER ==
[2023-11-23 19:21] VITALS: BP 125/89; PULSE 102; RESP 16; TEMP 97.6; BMI 20.1
[2023-11-23] MEDS ORDERED: SODIUM CHLORIDE 0.9% 500 ML INFUS.BAG IV ONE (20:38)
== END 2023-11-23 21:28 | disposition home or self-care (01) ==
LOC: JER 19:15
DX: F10.929 Alcohol use, unspecified with intoxication, unspecified (principal); R07.9 Chest pain, unspecified; G89.29 Other chronic pain; I48.91 Unspecified atrial fibrillation
CPT/HCPCS: 99282-25

== ENCOUNTER 2024-05-13 12:53 | Inpatient (IN) | payer OTHER ==
[2024-05-13 14:41] VITALS: BMI 21.9
[2024-05-13] MEDS ORDERED: MAG HYDROX/AL HYDROX/SIMETH 30 ML UNIT-DOSE CUP PO PRN (16:29)
[2024-05-13] MEDS ORDERED: BENZOCAINE/MENTHOL (CHLORASEPTIC ) LOZENGE MM PRN (16:29)
[2024-05-13] MEDS ORDERED: BENZONATATE 200 MG CAPSULE PO PRN (16:29)
[2024-05-13] MEDS ORDERED: guaiFENesin 600 MG TABLET.ER (FP) PO PRN (16:29)
[2024-05-13] MEDS ORDERED: ACETAMINOPHEN 325 MG TABLET (FP) PO PRN (16:29)
[2024-05-13] MEDS ORDERED: ONDANSETRON *ODT* 4 MG TABLET SL PRN (16:29)
[2024-05-13] MEDS ORDERED: IBUPROFEN 400 MG TABLET (FP) PO PRN (16:29)
[2024-05-13] MEDS ORDERED: DICYCLOMINE HCL 10 MG CAPSULE PO PRN (16:29)
[2024-05-13] MEDS ORDERED: LOPERAMIDE HCL 2 MG CAPSULE PO PRN (16:29)
[2024-05-13] MEDS ORDERED: POLYETHYLENE GLYCOL (HEALTHYLAX) 3350 17 GM PACKET PO PRN (16:29)
[2024-05-13] MEDS ORDERED: BISMUTH SUBSALICYLATE 524 MG/30 ML PO PRN (16:29)
[2024-05-13] MEDS ORDERED: NALOXONE (NARCAN) HCL 4 MG/0.1 ML SPRAY NS PRN (16:29)
[2024-05-13] MEDS ORDERED: MAGNESIUM HYDROX 2400MG/30ML ORAL SUSPENSION 30 ML CUP PO PRN (16:29)
[2024-05-13] MEDS ORDERED: chlordiazePOXIDE HCL 25 MG CAPSULE ONE (16:53)
[2024-05-13] MEDS: chlordiazePOXIDE HCL 25 MG CAPSULE PO SCH (17:32)
[2024-05-13] MEDS: NICOTINE POLACRILEX 2 MG GUM BUC PRN (18:26)
[2024-05-13] MEDS: hydrOXYzine PAMOATE 25 MG CAPSULE (FP) PO PRN (18:43)
[2024-05-13] MEDS: chlordiazePOXIDE HCL 25 MG CAPSULE PO PRN (19:36)
[2024-05-13] MEDS: IBUPROFEN 600 MG TABLET (FP) PO PRN (19:38)
[2024-05-13] MEDS: levETIRAcetam 500 MG TABLET (FP) PO SCH (22:17)
[2024-05-13] MEDS: METHOCARBAMOL 500 MG TABLET PO PRN (22:17)
[2024-05-13] MEDS: MELATONIN 5 MG TABLETS PO SCH (22:18)
[2024-05-13] MEDS: THIAMINE 100 MG TABLET PO SCH (22:18)
[2024-05-14] MEDS: PRENATAL VITAMINS W/ FOLIC ACID TABLET (FP) PO SCH (09:52)
[2024-05-14] MEDS: LISINOPRIL 10 MG TABLET PO SCH (09:53)
[2024-05-14 10:25] LABS: CHLORIDE 104 mmol/L (98-107); POTASSIUM 3.9 mmol/L (3.5-5.1); SODIUM 138 mmol/L (136-145)
[2024-05-14 10:27] LABS: ALBUMIN 3.4 g/dl (3.4-5.0); ANION GAP 6 mmol/L (4-13); BLOOD UREA NITROGEN 8.7 mg/dL (7-18); CALCIUM 8.9 mg/dL (8.5-10.1); CO2 27 mmol/L (21-32); GLUCOSE,RANDOM 79 mg/dL (74-106)
[2024-05-14 10:30] LABS: CREATININE 0.5 mg/dL (0.55-1.3); SGOT/AST 41 U/L (15-37); SGPT/ALT 24 U/L (13-61)
[2024-05-14 10:32] LABS: BILIRUBIN,TOTAL 0.9 mg/dL (0.2-1); HEMATOCRIT 31.2 % (32.4-45.2); HEMOGLOBIN 9.8 GM/dL (10.7-15.3); MCH 25.1 pg (25.7-33.7); MCHC 31.3 g/dl (32.0-36.0); MEAN CELL VOLUME 80.2 fl (80-96); MEAN PLT VOLUME 7.6 fl (7.5-11.1); PLATELET COUNT 123 10^3/uL (134-434); RBC 3.89 M/mm3 (3.60-5.2); RDW 19.6 % (11.6-15.6); TOT PROT 7.2 g/dl (6.4-8.2)
[2024-05-14 10:33] LABS: ALK PHOS 104 U/L (45-117)
[2024-05-14 13:02] VITALS: BP 127/79; PULSE 70; RESP 16; TEMP 97.6
[2024-05-14] MEDS: NALOXONE (NYS OPIOID OVERDOSE PROGRAM) 4 MG/0.1 ML SPRAY NS PRN (13:44)
[2024-05-14 14:04] LABS: HIV INTERPRETATION NEGATIVE (NEGATIVE)
[2024-05-15] MEDS ORDERED: chlordiazePOXIDE HCL 25 MG CAPSULE PO SCH (05:00)
[2024-05-16] MEDS ORDERED: chlordiazePOXIDE HCL 10 MG CAPSULE PO PRN
[2024-05-16] MEDS ORDERED: chlordiazePOXIDE HCL 10 MG CAPSULE PO SCH (05:00)
[2024-05-17] MEDS ORDERED: chlordiazePOXIDE HCL 10 MG CAPSULE PO SCH (05:00)
[2024-05-18] MEDS ORDERED: chlordiazePOXIDE HCL 10 MG CAPSULE PO ONE (05:00)
== END 2024-05-14 12:55 | disposition left against medical advice (07) | DRG 770 ==
LOC: YASAS 12:53 → Y6N 17:14
PROVIDERS: ADMIT Allergy & Immunology; ATTEND Surgery
PROC: HZ2ZZZZ Detoxification Services for Substance Abuse Treatment (ICD-10-PCS; principal; 2024-05-13)
DX: F10.230 Alcohol dependence with withdrawal, uncomplicated (principal); F17.210 Nicotine dependence, cigarettes, uncomplicated; F41.9 Anxiety disorder, unspecified; F32.A Depression, unspecified; D72.819 Decreased white blood cell count, unspecified; I10 Essential (primary) hypertension; K21.9 Gastro-esophageal reflux disease without esophagitis; R56.9 Unspecified convulsions; Z86.79 Personal history of other diseases of the circulatory system
CPT/HCPCS: 36415; 80053; 80305; 80307; 81025; 85027; 86780; 87389; 93005; 93010